=== PATIENT | female | born 1955 | race Hispanic/Latino ===

== ENCOUNTER 2020-08-07 00:50 | Emergency (ER) | payer SELFPAY ==
[~2020-08-07] VITALS: Ht 157.5 cm; Wt 131.5 kg
[2020-08-07] MEDS ORDERED: CLONIDINE HCL 0.1 MG TAB PO ONE (01:30)
--- NOTE | 2020-08-07 01:36 | Emergency Department Note ---
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 Historian: Patient Arrival Mode: Car [employer] B[employer] As[employer]er Required: No Onset (how long ago): month(s) (4) Location: HEAD Quality: HEADACHES AND WEAKNESS Radiation: Reports non-radiation Severity: moderate Onset quality: gradual Duration (how long): month(s) (4) Timing of current episode: intermittent Progression: waxing and waning Chronicity: recurrent Context: Denies recent illness, Denies recent surgery Relieving factors: none Exacerbating factors: none Associated symptoms: Reports denies other symptoms Treatments prior to arrival: none Past Medical/Family History Physician Review I have reviewed the patient's past medical and family history. Any updates have been documented here. Past Medical History Recent Fever: No Clinical Suspicion of Infectio: No New/Unexplained Change in Ment: No Past Medical History: Hypertension Social History Smoking Cessation: Never Smoker Alcohol Use: None Any Illegal Drug Use: No Family History Family history of heart diseas: No Review of Systems Review of Systems Constitutional: Reports no symptoms EENTM: Reports no symptoms Cardiovascular: Reports no symptoms Respiratory: Reports no symptoms Gastrointestinal: Reports no symptoms Genitourinary: Reports no symptoms Musculoskeletal: Reports no symptoms Integumentary: Reports no symptoms Neurological: Reports as per HPI Psychological: Reports no symptoms Endocrine: Reports no symptoms Hematological/Lymphatic: Reports no symptoms Physical Exam Related Data Allergies: Coded Allergies: Penicillins (Verified Allergy, Mild, RED RASH/ITCHING, 03/21/10) Iodine (Verified Allergy, Unknown, UNSURE, 03/21/10) Triage Vital Signs Vital Signs Date Time Temp Pulse Resp B/P (MAP) Pulse Ox O2 Delivery O2 Flow Rate FiO2 08/07/20 01:10 98.7 96 20 224/112 99 Room Air Vital signs reviewed: Yes Physical Exam CONSTITUTIONAL Constitutional: Present well-developed, Present well-nourished; Absent distressed HENT HENT: Present normocephalic, Present atraumatic, Present oropharynx c lear/moist, Present nose normal HENT L/R: Present left ext ear normal, Present right ext ear normal EYES Eyes: Reports PERRL, Reports conjunctivae normal NECK Neck: Present ROM normal PULMONARY Pulmonary: Present effort normal, Present breath sounds normal CARDIOVASCULAR Cardiovascular: Present regular rhythm, Present heart sounds normal, Present capillary refill normal, Present normal rate GASTROINTESTINAL Abdominal: Present soft, Present nontender, Present bowel sounds normal GENITOURINARY Genitourinary: Present exam deferred SKIN Skin: Present warm, Present dry MUSCULOSKELETAL Musculoskeletal: Present ROM normal NEUROLOGICAL Neurological: Present alert, Present oriented x 3, Present no gross motor or sensory deficits PSYCHOLOGICAL Psychological: Present mood/affect normal, Present judgement normal Results Laboratory Laboratory Laboratory Tests Test 08/07/20 02:08 08/07/20 01:25 Urine Color Yellow (YELLOW) Urine Clarity Clear (CLEAR) Urine pH 5.5 (5 - 7) Urine Specific [place] 1.025 (1.010-1.025) Urine Protein Negative (NEGATIVE) Urine Glucose (UA) 2+ (NEGATIVE) Urine Ketones 2+ (NEGATIVE) Urine Blood 2+ (NEGATIVE) Urine Nitrite Negative (NEGATIVE) Urine Bilirubin 1+ (NEGATIVE) Urine Urobilinogen 0.2 mg/dL (0.2 - 1) Urine Leukocyte Esterase Negative (NEGATIVE) Urine RBC 11-20 /HPF (0-5) Urine WBC 6-10 /HPF (0-5) Urine Epithelial Cells Moderate /LPF (NONE) Urine Bacteria Few /HPF (NONE) Urine Mucus Few (RARE) Urine Yeast Many (NONE) White Blood Count 7.86 x10e3/uL (4.8-10.8) Red Blood Count 5.38 x10e6/uL (3.6-5.1) Hemoglobin 15.6 g/dL (12.0-16.0) Hematocrit 47.1 % (34.2-44.1) Mean Corpuscular Volume 87.5 fL (81-99) Mean Corpuscular Hemoglobin 29.0 pg (28-32) Mean Corpuscular Hemoglobin Concent 33.1 g/dL (31-35) Red Cell Distribution Width 13.9 % (11.7-14.4) Platelet Count 158 x10e3/uL (140-360) Neutrophils (%) (Auto) 77.9 % (38.7-80.0) Lymphocytes (%) (Auto) 16.2 % (18.0-39.1) Monocytes (%) (Auto) 3.7 % (4.4-11.3) Eosinophils (%) (Auto) 1.3 % (0.0-6.0) Basophils (%) (Auto) 0.5 % (0.0-1.0) Neutrophils # (Auto) 6.1 (2.1-6.9) Lymphocytes # (Auto) 1.3 (1.0-3.2) Monocytes # (Auto) 0.3 (0.2-0.8) Eosinophils # (Auto) 0.1 (0.0-0.4) Basophils # (Auto) 0.0 (0.0-0.1) Absolute Immature Granulocyte (auto 0.03 x10e3/uL (0-0.1) Sodium Level 141 mmol/L (136-145) Potassium Level 3.6 mmol/L (3.5-5.1) Chloride Level 100 mmol/L (98-107) Carbon Dioxide Level 24 mmol/L (22-29) Anion Gap 20.6 mmol/L (8-16) Blood Urea Nitrogen 14 mg/dL (7-26) Creatinine 0.98 mg/dL (0.57-1.11) Estimat Glomerular Filtration Rate 58 ML/MIN (60-) BUN/Creatinine Ratio 14 (6-25) Glucose Level 280 mg/dL (74-118) Calcium Level 9.6 mg/dL (8.4-10.2) Total Bilirubin 0.7 mg/dL (0.2-1.2) Aspartate Amino Transf (AST/SGOT) 18 IU/L (5-34) Alanine Aminotransferase (ALT/SGPT) 14 IU/L (0-55) Alkaline Phosphatase 104 IU/L (40-150) Creatine Kinase 51 IU/L (29-168) Creatine Kinase MB 0.90 ng/mL (0-5.0) Troponin I 0.029 ng/mL (0-0.300) Total Protein 7.2 g/dL (6.5-8.1) Albumin 2.8 g/dL (3.5-5.0) Globulin 4.4 g/dL (2.3-3.5) Albumin/Globulin Ratio 0.6 (0.8-2.0) Lab results reviewed: Yes Imaging Imaging results reviewed: Yes Impressions Procedure: [id number] CT/CT BRAIN WO Exam Date: 08/07/20 Exam Time: 144 REPORT STATUS: Signed EXAMINATION: Head CT without contrast. HISTORY:Headache, elevated blood pressure. COMPARISON:None. TECHNIQUE: Multidetector axial images were obtained from the foramen magnum to the vertex without contrast. The images were reconstructed using brain and bone algorithms. Thin section brain images were reformatted into coronal and sagittal planes. Dose modulation, iterative reconstruction, and/or weight based adjustment of the mA/kV was utilized to reduce the radiation dose to as low as reasonably achievable. Intravenous contrast: None IMAGE QUALITY: Acceptable. FINDINGS: Skull/scalp: No lytic or blastic. lesions. No surgical changes. Parenchyma: Nonspecific bilateral frontoparietal patchy white matter hypodensity are likely related to small vessel ischemic changes. No acute hemorrhage, mass or acute major vascular territorial infarct. Arteries: No density suggestive of thrombosis. Dural sinuses: No abnormal density suggestive of thrombosis. Ventricles: No hydrocephalus or displacement. Extra-axial spaces: No abnormal density. Brain volume: Mild generalized cerebral volume loss. Craniocervical junction: No mass, Chiari malformation, or basilar invagination. Sella: No mass. Paranasal/mastoid sinuses: Opacification of the visualized portion of left maxillary sinus. IMPRESSION: No acute intracranial abnormality. Mild supratentorial white matter microvascular ischemic changes. Mild generalized cerebral volume loss. Signed by: Dr. Niurka Cutler M.D. on 08/07/2020 2:12 AM Dictated By: NIURKA CUTLER MD 1 Transcribed By: TWIN on 08/07/20211 COPY TO: DENISE JACOB MD~ Procedure: [id number] DX/CHEST SINGLE (PORTABLE) Exam Date: 08/07/20 Exam Time: 144 REPORT STATUS: Signed EXAMINATION: CHEST SINGLE (PORTABLE) INDICATION: ^HEADACHE, WEAKNESS ^[id number] ^[id number] ^Y COMPARISON: 03/20/2010 FINDINGS: AP view TUBES and LINES: None. LUNGS: Limited by body habitus. Lungs are well inflated. There is no evidence of pneumonia or pulmonary edema. PLEURA: No pleural effusion or pneumothorax. HEART AND MEDIASTINUM: The cardiomediastinal silhouette is unremarkable. BONES AND SOFT TISSUES: No acute osseous lesion. Partially visualized cervical spine fusion hardware. Soft tissues are unremarkable. UPPER ABDOMEN: No free air under the diaphragm. IMPRESSION: No acute thoracic abnormality. Signed by: Dr. 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 Date: Aug 07, 2020 Time: 01:18 Rhythm: sinus rhythm Rate: normal BPM: 89 QRS axis: normal ST segments normal: Yes T waves normal: Yes Other findings: no other findings Clinical Impression: normal ECG Assessment & Plan Medical Decision Making MDM PT WITH INTERMITTENT HEADACHE AND WEAKNESS SINCE MARCH, CURRENT EPISODE FOR PAST 1 WEEK, PT NOTED TO BE HYPERTENSIVE ON ARRIVAL,STATES HAS NOT CHECKED HER BLOOD PRESSURE SINCE LAST VISIT WITH PCP IN OCTOBER CBC, CMP, EKG, CARDIAC ENZYMES, CXR, CT BRAIN ORDERED TO EVAL FOR INTRACRANIAL MASS, CVA, SUBDURAL BLEED, MYOCARDIAL INFARCTION, PULMONARY EDEMA, RENAL INSUFFICIENCY, ELECTROLYTE ABNORMALITY CLONIDINE 0.1 MG PO ORDERED Assessment & Plan Final Impression: (1) Headache (2) HTN (hypertension) (3) UTI (urinary tract infection) Depart Disposition: HOME, SELF-CARE Last Vital Signs Date Time Temp Pulse Resp B/P (MAP) Pulse Ox O2 Delivery O2 Flow Rate FiO2 08/07/20 01:10 98.7 96 20 224/112 99 Room Air Medications in the ED Clonidine HCl 0.1 mg ONCE ONCE PO ; Start 08/07/20 at 01:30; Stop 08/07/20 at 01:31; Status UNV DENISE JACOB MD Aug 07, 2020 01:36
[2020-08-07 01:47] LABS: BASOPHILS % 0.5 % (0.0-1.0); EOSINOPHILS # (AUTO) 0.1 (0.0-0.4); EOSINOPHILS % 1.3 % (0.0-6.0); HEMATOCRIT 47.1 % (34.2-44.1); HEMOGLOBIN 15.6 g/dL (12.0-16.0); LYMPHOCYTES # (AUTO) 1.3 (1.0-3.2); LYMPHOCYTES % 16.2 % (18.0-39.1); MEAN CORPUSCULAR HGB CONC 33.1 g/dL (31-35); MEAN CORPUSCULAR VOLUME 87.5 fL (81-99); MONOCYTES # (AUTO) 0.3 (0.2-0.8); MONOCYTES % 3.7 % (4.4-11.3); NEUTROPHILS # (AUTO) 6.1 (2.1-6.9); NEUTROPHILS % 77.9 % (38.7-80.0); PLATELET COUNT 158 x10e3/uL (140-360); RED BLOOD COUNT 5.38 x10e6/uL (3.6-5.1); RED CELL DISTRIBUTION WIDTH 13.9 % (11.7-14.4)
[2020-08-07 01:51] LABS: ALBUMIN 2.8 g/dL (3.5-5.0); ALBUMIN/GLOBULIN RATIO 0.6 (0.8-2.0); ANION GAP 20.6 mmol/L (8-16); CALCIUM 9.6 mg/dL (8.4-10.2); CREATININE, SERUM 0.98 mg/dL (0.57-1.11); POTASSIUM 3.6 mmol/L (3.5-5.1)
[2020-08-07 02:12] LABS: CREATINE KINASE MB 0.9 ng/mL (0-5.0)
--- NOTE | 2020-08-07 02:16 | Diagnostic Imaging Report ---
EXAMINATION: Head CT without contrast. HISTORY:Headache, elevated blood pressure. COMPARISON:None. TECHNIQUE: Multidetector axial images were obtained from the foramen magnum to the vertex without contrast. The images were reconstructed using brain and bone algorithms. Thin section brain images were reformatted into coronal and sagittal planes. Dose modulation, iterative reconstruction, and/or weight based adjustment of the mA/kV was utilized to reduce the radiation dose to as low as reasonably achievable. Intravenous contrast: None IMAGE QUALITY: Acceptable. FINDINGS: Skull/scalp: No lytic or blastic. lesions. No surgical changes. Parenchyma: Nonspecific bilateral frontoparietal patchy white matter hypodensity are likely related to small vessel ischemic changes. No acute hemorrhage, mass or acute major vascular territorial infarct. Arteries: No density suggestive of thrombosis. Dural sinuses: No abnormal density suggestive of thrombosis. Ventricles: No hydrocephalus or displacement. Extra-axial spaces: No abnormal density. Brain volume: Mild generalized cerebral volume loss. Craniocervical junction: No mass, Chiari malformation, or basilar invagination. Sella: No mass. Paranasal/mastoid sinuses: Opacification of the visualized portion of left maxillary sinus. IMPRESSION: No acute intracranial abnormality. Mild supratentorial white matter microvascular ischemic changes. Mild generalized cerebral volume loss. Signed by: Dr. Niurka Cutler M.D. on 08/07/2020 2:12 AM
[2020-08-07 02:23] LABS: CLARITY,URINE CLEAR (CLEAR); COLOR,URINE YELLOW (YELLOW); LEUKOCYTE ESTERASE ,URINE NEGATIVE (NEGATIVE); NITRITE,URINE NEGATIVE (NEGATIVE); PROTEIN,URINE DIPSTICK NEGATIVE (NEGATIVE)
[2020-08-07 02:24] LABS: BILIRUBIN,URINE 1+ (NEGATIVE); KETONES,URINE 2+ (NEGATIVE); URINE UROBILINOGEN 0.2 mg/dL (0.2 - 1)
--- NOTE | 2020-08-07 02:39 | Diagnostic Imaging Report ---
EXAMINATION: CHEST SINGLE (PORTABLE) INDICATION: ^HEADACHE, WEAKNESS ^[id number] ^0145 ^Y COMPARISON: 03/20/2010 FINDINGS: AP view TUBES and LINES: None. LUNGS: Limited by body habitus. Lungs are well inflated. There is no evidence of pneumonia or pulmonary edema. PLEURA: No pleural effusion or pneumothorax. HEART AND MEDIASTINUM: The cardiomediastinal silhouette is unremarkable. BONES AND SOFT TISSUES: No acute osseous lesion. Partially visualized cervical spine fusion hardware. Soft tissues are unremarkable. UPPER ABDOMEN: No free air under the diaphragm. IMPRESSION: No acute thoracic abnormality. Signed by: Dr. Mika Calvo MD on 08/07/2020 2:35 AM
[2020-08-07 02:42] LABS: BACTERIA,URINE FEW /HPF; EPITHELIAL CELLS,URINE MODERATE /LPF; MUCUS,URINE FEW (RARE); YEAST,URINE MANY
--- OUTSIDE RECORDS SUMMARY | 2020-08-07 03:47 | XMS REPORT | Continuity of Care Document ---
Author Author [facility] t Organization [facility] Address [address] [place] [address] Phone Unavailable Care Team Providers Care Provider Scribe Name Role Phone Pratibha Mckeon MD PCP [place] JACOB Attphys Unavailable Roc Mckeon Attphys Juan Mcpherson II Attphys Vic Sawyer Attphys Bryan Smith Attphys Keisha South Attphys Problems Condition Name Condition Details Condition Category Status Onset Date Resolution Date Last Treatment Date Treating Clinician Comments Source E78.5 E11.65 E03.9 K74.60 V E78.5 E11.65 E03.9 K74.60 V Active 03/19/2018 [facility] Diagnosis Active 2018-03-19 00:00:00 2018-04-20 15:13:00 Bianka Mccallum E78.5 E11.65 E03.9 K74.60 E78. 5 E11.65 E03.9 K74.60 Active 01/26/2018 [facility] Diagnosis Active 2018-01-26 00:00:00 2018-02-13 08:39:00 Bianka Mccallum LIVER CIRRHOSIS LIVE R CIRRHOSIS Active 10/13/2017 [facility] Diagnosis Active 2017-10-13 00:00:00 2017-10-16 07:17:00 Bianka Mccallum M25.562 - PAIN IN LEFT KNEE M2 5.562 - PAIN IN LEFT KNEE Active 05/29/2017 OPID [facility] Diagnosis Active 2017-05-29 00:0 1:00 2017-07-01 15:57:00 [facility] Screening mammography (procedure) Screening mammography (procedure) Active 04/24/2015 Problem 08/13/2019 Data migrated from [employer] on 05/20/15. [facility] [place] [place] Problem Active 2015-04-24 00:00:00 2019-08-13 01:44:36 [facility] Candidiasis of mouth (disorder) Candidiasis of mouth (disorder) Active 03/22/2015 Problem 08/13/2019 Data migrated from [employer] on 04/05/15. [facility] [place] [place],[facility] Problem Active 2015-03-22 00:00:00 2019-08-13 01:44:36 [facility] HYPERTRIGLYCERIDEMIA HYPE RTRIGLYCERIDEMIA Active 02/06/2015 Condition 02/06/2015 Medical Group Condition Active 2015-02-06 00:00:00 2015-02-06 15:45:00 [facility] HELICOBACTER PYLORI GASTRITIS HELICOBACTER PYLORI GASTRITIS Active 02/06/2015 Condition 02/06/2015 Medical Group Condition Active 2015-02-06 00:00:00 2015-02-06 15:45:00 [facility] Helicobacter-associated gastritis (disorder) Helicobacter-associated gastritis (disorder) Active 02/06/2015 Problem 08/13/2019 Data migrated from [employer] on 04/05/15.Data migrated from [employer] on 04/05/15. [facility] [place] [place],[facility] Problem Active 2015-02-06 00:00:00 2019-08-13 01:44:36 [facility] Hypertriglyceridemia (disorder) Hypertriglyceridemia (disorder) Active 02/06/2015 Problem 08/13/2019 Data migrated from [employer] on 04/05/15.Data migrated from [employer] on 04/05/15. [facility] [place] [place],[facility] Problem Active 2015-02-06 00:00:00 2019-08-13 01:44:36 [facility] ABDOMINAL PAIN, EPIGASTRIC ABD OMINAL PAIN, EPIGASTRIC Active 11/28/2014 Condition 02/06/2015 Medical Group Condition Active 2014-11-28 00:00:00 2015-02-06 15:45:00 [facility] Epigastric pain (finding) Epig astric pain (finding) Active 11/28/2014 Problem 08/13/2019 Data migrated from [employer] on 04/05/15.Data migrated from [employer] on 04/05/15. [facility] [place] [place] Problem Active 2014-11-28 00:00:00 2019-08-13 01:44:36 [facility] DYSLIPIDEMIA DYSL IPIDEMIA Active 08/17/2014 Condition 02/06/2015 Medical Group Condition Active 2014-08-17 00:00:00 2015-02-06 15:45:00 [facility] Dyslipidemia (disorder) Dysl ipidemia (disorder) Active 08/17/2014 Problem 03/23/2018 Data migrated from [employer] on 02/28/15. [facility] [place] [place] Problem Active 2014-08-17 00:00:00 2018-03-23 02:54:45 [facility] DIABETES MELLITUS, TYPE II, UNCONTROLLED DIABETES MELLITUS, TYPE II, UNCONTROLLED Active 08/15/2014 Condition 02/06/2015 Medical Group Condition Active 2014-08-15 00:00:00 2015-02-06 15:45:00 [facility] Type II diabetes mellitus uncontrolled (finding) Type II diabetes mellitus uncontrolled (finding) Active 08/15/2014 Problem 03/23/2018 Data migrated from [employer] on 02/28/15. [facility] [place] [place] Problem Active 2014-08-15 00:00:00 2018-03-23 02:54:45 [facility] OBESITY NOS OBES ITY NOS Active 05/26/2014 Condition 02/06/2015 Medical Group Condition Active 2014-05-26 00:00:00 2015-01 15:45:00 [facility] Obesity (disorder) Obes ity (disorder) Active 05/26/2014 Problem 08/13/2019 Data migrated from [employer] on 02/28/15. [facility], [facility] [place] [place],[facility] Problem Active 2014-05-26 00:00:00 2019-08-13 01:44:36 [facility] DIABETES MELLITUS, TYPE II LUH BETES MELLITUS, TYPE II Active 05/04/2014 Condition 02/06/2015 Medical Group Condition Active 2014-05-04 00:00:00 2015-02-06 15:45:00 [facility] HYPERTENSION, BENIGN ESSENTIAL HYPERTENSION, BENIGN ESSENTIAL Active 05/04/2014 Condition 02/06/2015 Medical Group Condition Active 2014-05-04 00:00:00 2015-02-06 15:45:00 [facility] FIBROMYALGIA FIBR OMYALGIA Active 05/04/2014 Condition 02/06/2015 [facility] Group Condition Active 2014-05-04 00:00:00 2015-02-06 15:45:00 [facility] DERMATOPHYTOSIS, BODY DERM ATOPHYTOSIS, BODY Active 05/04/2014 Condition 02/06/2015 [facility] Group Condition Active 2014-05-04 00:00:00 2015-02-06 15:45:00 [facility] SEBORRHEIC DERMATITIS SEBO RRHEIC DERMATITIS Active 05/04/2014 Condition 02/06/2015 Medical Group Condition Active 2014-05-04 00:00:00 2015-02-06 15:45:00 [facility] ALLERGIC RHINITIS KAYLEEN RGIC RHINITIS Active 05/04/2014 Condition 02/06/2015 Medical Group Condition Active 2014-05-04 00:00:00 2015-02-06 15:45:00 [facility] ASTHMA ASTH MA Active 05/04/2014 Condition 02/06/2015 Medical Group Condition Active 2014-05-04 00:00:00 2015-02-06 15:45:00 [facility] Allergic rhinitis (disorder) A llergic rhinitis (disorder) Active 05/04/2014 Problem 08/13/2019 Data migrated from [employer] on 02/28/15. [facility] [place] [place],[facility] Problem Active 2014-05-04 00:00:00 2019-08-13 01:44:36 [facility] Asthma (disorder) Asth ma (disorder) Active 05/04/2014 Problem 08/13/2019 Data migrated from [employer] on 02/28/15. [facility], [facility] [place], [place], [facility] Problem Active 2014-05-04 00:00:00 2019-08-13 01:44:36 [facility] Benign essential hypertension (disorder) Benign essential hypertension (disorder) Active 05/04/2014 Problem 08/13/2019 Data migrated from [employer] on 02/28/15. [facility], [facility] [place], [place], [facility] Problem Active 2014-05-04 00:00:00 2019-08-13 01:44:36 [facility] Dermatophytosis of the body (disorder) Dermatophytosis of the body (disorder) Active 05/04/2014 Problem 08/13/2019 Data migrated from [employer] on 02/28/15. [facility], [facility] [place], [place], M[facility] Problem Active 2014-05-04 00:00:00 2019-08-13 01:44:36 [facility] Fibromyositis (disorder) Fibr omyositis (disorder) Active 05/04/2014 Problem 08/13/2019 Data migrated from [employer] on 02/28/15. [facility], [facility] [place], [place], [facility] Problem Active 2014-05-04 00:00:00 2019-08-13 01:44:36 [facility] Seborrheic dermatitis (disorder) Seborrheic dermatitis (disorder) Active 05/04/2014 Problem 08/13/2019 Data migrated from [employer] on 02/28/15. [facility], [facility] [place], [place], OPID [facility] Problem Active 2014-05-04 00:00:00 2019-08-13 01:44:36 [facility] Diabetes mellitus type 2 (disorder) Diabetes mellitus type 2 (disorder) Active 05/04/2014 Problem 03/23/2018 Data migrated from [employer] on 02/28/15. [facility] [place] [place] Problem Active 2014-05-04 00:00:00 2018-03-23 02:54:45 [facility] NECKA PAIN AND LEFT KNEE PAIN NECKA PAIN AND LEFT KNEE PAIN Active 04/29/2008 [facility] Diagnosis Active 2008-04-29 08:0 0:00 2017-05-23 18:23:00 [facility] Morbid (severe) obesity due to excess calories Morbid (severe) obesity due to excess calories 01/22/2018 [facility] Problem 2018-01-22 17:20:17 [facility] Essential (primary) hypertension Essential (primary) hypertension 01/22/2018 [facility] Problem 2018-01-22 17:20:17 [facility] Type 2 diabetes mellitus without complications Type 2 diabetes mellitus without complications 01/22/2018 [facility] Problem 2018-01-22 17:20:17 [facility] Pure hypercholesterolemia, unspecified Pure hypercholesterolemia, unspecified 01/22/2018 [facility] Problem 2018-01-22 17:20:17 [facility] Hypothyroidism, unspecified Hy pothyroidism, unspecified 01/22/2018 [facility] Problem 2018-01-22 17:20:1 7 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 Hyperglycemia due to type 2 diabetes mellitus (disorde r) Hyperglycemia due to type 2 diabetes mellitus (disorder) Active Problem 08/13/2019 [facility] Problem Active 2019-08-13 01:44:36 [facility] Hyperlipidemia (disorder) Hype rlipidemia (disorder) Active Problem 08/13/2019 [facility], [facility] Problem Active 2019-08-13 01:44:36 Memmickey Mccallum Morbid obesity (disorder) Morb id obesity (disorder) Active Problem 08/13/2019 [facility], [facility] Problem Active 2019-08-13 01: 44:36 [facility] Diabetes mellitus (disorder) D iabetes mellitus (disorder) Active Problem 03/23/2018 [facility], [facility] Problem Active 2018-03-23 02:54:45 Bhaskar khalil Alessio Unspecified cirrhosis of liver Unspecified cirrhosis of liver 10/18/2017 01/22/2018 [facility] Problem 04:33:45 2018-01-22 17:20:17 2018-01-22 17:20:17 Bianka mckeon Allergies, Adverse Reactions, Alerts Allergy Name Allergy Type Status Severity Reaction(s) Onset Date Inacti ve Date Treating Clinician Comments Source Adhesive Tape-Silicones Propensity to adverse reactions to drug Activ e 2017-07-25 00:00:00 ADHESIVES Reyes Meth odist Iodine Propensity to adverse reactions to drug Active 2017-07-08 00:00:00 Eric Uatsdin Penicillins Propensity to adverse reactions to drug Active Rash 2017-05-16 00:00:00 Itching [facility] penicillins<sup>1</sup> penicillins<sup>1</sup> Active 2014-05-04 05:00:00 Bianka Mccallum PENICILLIN PENICILLIN Active 2014-05-04 00:00:00 Bianka Mcclalum ADHESIVE Allergy to substance Active Mild to moderate Rash [facility] PENICILLINS Allergy to substance Active Moderate to severe Itching [facility] Iodine Mild<sup>2</sup> Iodine Mild<sup>2</sup> Active Bianka Mccallum Social [facility] Start Date Stop Date Quantity Comments Source Sex Assigned At Sanket sullivan Uatsdin Social History 2018-01-12 21:10:27 2018-01-12 21:10:27 Bianka Mccallum Smoking Status Start Date Stop Date Source Former Smoker [facility] Bianka Mccallum Medications Ordered Medication Name Filled Medication Name Start Date Stop Da te Current Medication? Ordering Clinician Indication Dosage Frequency Signature (SIG) Comments Components Source gabapentin 300 MG Oral Capsule 2019-08-10 22:40:00 Yes 300 mg = 1 cap, PO, BID, # 180 cap, 1 Refill(s), Pharmacy: [id number] Bianka Mccallum Triamcinolone Acetonide 1 MG/ML Topical Cream 2019-08-10 22:40:0 0 Yes 1 appl, TOP, BID, Apply to affected area (s), X 14 day, # 60 gm, 0 Refill(s), Pharmacy: [id number] Bianka Mccallum gabapentin 300 MG Oral Capsule 2019-08-10 22:39:00 No 300 mg = 1 cap, PO, TID, # 90 cap, 0 Refill(s) Bhaskar khalil [place] valsartan 320 mg oral tablet 2019-08-10 22:36:57 Yes 320 mg = 1 tab, PO, Daily, # 90 tab, 1 Refill(s), Pharmacy: [address] simvastatin 10 mg oral tablet 2019-08-10 22:36:54 Yes = 1 tab, PO, Bedtime, # 90 tab, 1 Refill(s), Pharmacy: [facility] [address] [place] [address] pantoprazole 40 MG Enteric Coated Tablet [Protonix] 2018-09 22:36:47 Yes 40 mg = 1 tab, P O, Daily, # 90 tab, 1 Refill(s), Pharmacy: [address] levothyroxine 25 mcg (0.025 mg) oral tablet 2019-08-10 22:36:11 Yes = 1 tab, PO, Daily, # 90 tab, 1 Refill(s), Pharmacy: [address] 3 ML insulin degludec 200 UNT/ML Pen Injector [Tresiba] 2019-08-10 22:31:47 Yes 54 unit, SUB-Q, Daily, # 12 pen(s), 1 Refill(s), Pharmacy: [address] 3 ML Insulin, Aspart, Human 100 UNT/ML Pen Injector [NovoLog ] 2019-08-10 22:31:24 Yes See Instru ctions, SUB-Q TID-Before Meals following sliding scale BS 150-199 3 units BS 200-249 6 units BS 250-299 9 units BS 300- 349 12 units BS more than 350 15 units, # 15 mL, 1 Refill(s) [facility] Hydrochlorothiazide 25 MG Oral Tablet 2019-08-10 22:30:22 Y es 25 mg = 1 tab, PO, Daily, # 90 tab, 0 Refill(s), Pharmacy: [address] duloxetine 30 MG Enteric Coated Capsule [Cymbalta] 2019-07 22:29:20 Yes 30 mg = 1 cap, P O, Daily, # 90 cap, 1 Refill(s), Pharmacy: [address] 0.5 ML dulaglutide 1.5 MG/ML Prefilled Syringe [Trulicity] 2019-08-10 22:29:12 Yes 0.75 mg, S UB-Q, qWeek, # 4 ea, 5 Refill(s), Pharmacy: [address] 24 HR dapagliflozin 5 MG / Metformin hyd rochloride 1000 MG Extended Release Oral Tablet [Xigduo] 2019-08-10 22:28:52 Yes 2 tab, PO, QAM, # 180 tab, 1 Refill(s), Pharmacy: [facility] [address] [place] [address] amLODIPine 10 mg oral tablet 2019-08-10 22:28:28 Yes 10 mg = 1 tab, PO, Daily, # 90 tab, 1 Refill(s), Pharmacy: [facility] [address] [place] [address] Ventolin HFA 90 mcg/inh inhalation aerosol with adapter 2019-08-10 22:28:10 Yes 2 puff, INHALAT ION, QID, # 1 ea, 2 Refill(s), Pharmacy: [address] duloxetine 30 MG Enteric Coated Capsule [Cymbalta] 2019-05 21:42:45 Yes 30 mg = 1 cap, P O, Daily, # 90 cap, 0 Refill(s), Pharmacy: [address] Ergocalciferol [id number] UNT Oral Capsule 2019-05-14 17:28:00 Y es 50,000 IntlUnit = 1 cap, PO, qWeek, # 12 cap, 0 Refill(s), Pharmacy: [address] 3 ML insulin degludec 200 UNT/ML Pen Injector [Tresiba] 2019-05-14 17:13:42 Yes 50 unit, SUB-Q, Daily, # 12 pen(s), 1 Re fill(s), other [facility] 3 ML Insulin, Aspart, Human 100 UNT/ML Pen Injector [NovoLog ] 2019-05-14 17:13:00 Yes See Instru ctions, SUB-Q TID-Before Meals following sliding scale BS 150-199 3 units BS 200-249 6 units BS 250-299 9 units BS 300- 349 12 units BS more than 350 15 units, # 15 mL, 0 Refill(s) [facility] 0.5 ML dulaglutide 1.5 MG/ML Prefilled Syringe [Trulicity] 2019-05-14 17:13:00 Yes 0.75 mg, S UB-Q, qWeek, # 4 ea, 2 Refill(s), Pharmacy: [address] amLODIPine 10 mg oral tablet 2019-05-11 20:33:00 Yes 10 mg = 1 tab, PO, Daily, # 90 tab, 0 Refill(s), Pharmacy: [address] Hydrochlorothiazide 25 MG Oral Tablet 2019-05-11 20:33:00 Y es 25 mg = 1 tab, PO, Daily, # 90 tab, 0 Refill(s), Pharmacy: [address] valsartan 320 mg oral tablet 2019-05-11 20:33:00 Yes 320 mg = 1 tab, PO, Daily, # 90 tab, 0 Refill(s), Pharmacy: [address] Nystatin [id number] UNT/ML Oral Suspension 2019-04-29 13:44:04 Yes 400,000 unit = 4 mL, S&SPIT, QID, place 2 mL in each cheek pouch, # 120 mL, 1 Refill(s), Pharmacy: [address] Fluconazole 150 MG Oral Tablet [Diflucan] 2019-04-29 13:44:00 Yes 150 mg = 1 tab, PO, ONCE, # 1 tab, 1 Refill(s), Pharmacy: [address] simvastatin 10 mg oral tablet 2019-04-29 13:33:02 Yes = 1 tab, PO, Bedtime, # 90 tab, 0 Refill(s), Pharmacy: [address] pantoprazole 40 MG Enteric Coated Tablet [Protonix] 04-29 13:32:56 Yes 40 mg = 1 tab, P O, Daily, # 90 tab, 1 Refill(s), Pharmacy: [address] meloxicam 15 mg oral tablet 2019-04-29 13:32:25 Yes 15 mg = 1 tab, PO, Daily, # 90 tab, 1 Refill(s), Pharmacy: [address] levothyroxine 25 mcg (0.025 mg) oral tablet 2019-04-29 13:32:23 Yes = 1 tab, PO, Daily, # 90 tab, 0 Refill(s), Pharmacy: [address] 3 ML Insulin Lispro 200 UNT/ML Pen Injector [Humalog] 2019-04-29 13:32:19 Yes 400, # 3 mL, 2 Refill(s), Pharmacy: [address] 3 ML insulin degludec 200 UNT/ML Pen Injector [Tresiba] 2019-04-29 13:32:13 Yes 62 unit, SUB-Q, Daily, # 12 pen(s), 1 Refill(s), Pharmacy: [address] 0.65 ML exenatide 3.08 MG/ML Prefilled Syringe [Bydureon] 2019-04-29 13:31:16 Yes 2 mg, SUB-Q, q Week, # 12 ea, 3 Refill(s), Pharmacy: [place] [id number], give bydureon bcise [facility] Mccallum 24 HR dapagliflozin 5 MG / Metformin hyd rochloride 1000 MG Extended Release Oral Tablet [Xigduo] 2019-04-29 13:30:59 Yes 2 tab, PO, QAM, # 180 tab, 0 Refill(s), Pharmacy: [address] Symbicort 160/4.5 inhalation aerosol with adapter 2019-04-29 13:30:50 Yes See Instructions, IN VALERIO TWO PUFFS BY MOUTH TWICE DAILY, # 3 ea, 3 Refill(s), Pharmacy: [address] Amlodipine 10 MG / Hydrochlorothiazide 25 MG / valsartan 320 MG Oral Tablet 2019-04-29 13:30:42 Yes 1 tab, PO, Daily, # 90 tab, 0 Refill(s), Pharmacy: [address] duloxetine 30 MG Enteric Coated Capsule [Cymbalta] 2019-04 13:30:00 Yes 30 mg = 1 cap, P O, Daily, # 30 cap, 0 Refill(s), Pharmacy: [address] FreeStyle shawn sensors 2018-08-25 16:07:00 Yes FreeStyle shawn sensors, See Instructions, Use as diected for glucose monitoring, # 3 ea, Refill(s) 11, Pharmacy: [address] FreeStyle shawn reader 2018-08-25 16:07:00 Yes FreeStyle shawn reader, See Instructions, Use as directed for glucose monitoring, # 1 ea, Refill(s) 11, Pharmacy: [address] Albuterol 0.83 MG/ML Inhalant Solution 2018-07-13 21:39:00 Yes 2.49 mg = 3 mL, INHALATION, Q4H, PRN wheezing, coughing, or shortness of breath, # 120 ea, 1 Refill(s), Pharmacy: [address] Azithromycin 5 Day Dose Pack 250 mg oral tablet 2018-07-13 21:39 :00 No See Instructions, Take 2 tab lets by mouth the first day then 1 tablet by mouth days 2-5., X 5 day, # 6 tab, 0 Refill(s), Pharmacy: [address] 3 ML insulin degludec 200 UNT/ML Pen Injector [Tresiba] 2018-07-13 21:18:23 Yes 62 unit, SUB-Q, Daily, # 12 pen(s), 1 Refill(s), Pharmacy: [address] Nystatin [id number] UNT/ML Oral Suspension 2018-07-13 21:18:00 Yes 400,000 unit = 4 mL, S&SPIT, QID, place 2 mL in each cheek pouch, # 120 mL, 1 Refill(s), Pharmacy: [address] pregabalin 50 MG Oral Capsule [Lyrica] 2018-07-13 21:18:00 Yes 50 mg = 1 cap, PO, BID, # 60 cap, 2 Refill(s) [facility] 3 ML Insulin Lispro 200 UNT/ML Pen Injector [Humalog] 2018-07-13 21:18:00 Yes 400, # 3 mL, 2 Refill(s), Pharmacy: [address] simvastatin 10 mg oral tablet 2018-04-13 21:56:16 Yes See Instructions, TAKE ONE TABLET BY MOUTH AT BEDTIME, # 90 tab, 1 Refill(s), Pharmacy: [address] pantoprazole 40 MG Enteric Coated Tablet [Protonix] 04-13 21:56:10 Yes 40 mg = 1 tab, P O, Daily, # 90 tab, 1 Refill(s), Pharmacy: [address] meloxicam 15 mg oral tablet 2018-04-13 21:55:24 Yes 15 mg = 1 tab, PO, Daily, # 90 tab, 1 Refill(s), Pharmacy: [address] levothyroxine 25 mcg (0.025 mg) oral tablet 2018-04-13 21:55:18 Yes 25 microgram = 1 tab, PO, Daily, # 90 tab, 1 Refill(s), Pharmacy: [address] 3 ML insulin degludec 200 UNT/ML Pen Injector [Tresiba] 2018-04-13 21:55:04 No 56 unit, SUB-Q, Daily, # 12 pen(s), 1 Refill(s), Pharmacy: [address] 0.65 ML exenatide 3.08 MG/ML Prefilled Syringe [Bydureon] 2018-04-13 21:54:41 Yes 2 mg, SUB-Q, q Week, # 12 ea, 3 Refill(s), Pharmacy: [place] [address], give bydureon bcise [facility] [place] NovoFine Plus Insulin Pen [place] 32G 4mm=5/32 inch 04-13 21:54:26 Yes 1 ea, MISC, Daily, # 100 ea, 3 Refill(s) [facility] 24 HR dapagliflozin 5 MG / Metformin hyd rochloride 1000 MG Extended Release Oral Tablet [Xigduo] 2018-04-13 21:54:04 Yes 2 tab, PO, QAM, # 180 tab, 1 Refill(s), Pharmacy: [address] Symbicort 160/4.5 inhalation aerosol with adapter 2018-04-13 21:54:01 Yes See Instructions, IN VALERIO TWO PUFFS BY MOUTH TWICE DAILY, # 3 ea, 3 Refill(s), Pharmacy: [address] Amlodipine 10 MG / Hydrochlorothiazide 25 MG / valsartan 320 MG Oral Tablet 2018-04-13 21:53:58 Yes 1 tab, PO, Daily, # 90 tab, 1 Refill(s), Pharmacy: [facility] [address] [place] [address] Ventolin HFA 90 mcg/inh inhalation aerosol with adapter 2018-04-13 21:53:54 Yes 2 puff, INHALAT ION, QID, # 1 ea, 2 Refill(s), Pharmacy: [facility] [address] [place] [address] levothyroxine 25 mcg (0.025 mg) oral tablet 2018-01-14 11:31:34 Yes 25 microgram = 1 tab, PO, Daily, # 90 tab, 1 Refill(s), Pharmacy: [address] Triamcinolone Acetonide 0.001 MG/MG Topical Ointment 2 21:50:07 Yes 1 appl, TOP, TI D, # 60 gm, 0 Refill(s), Pharmacy: [address] Nystatin 100 UNT/MG Topical Ointment 2018-01-12 21:49:30 Ye s 1 appl, TOP, TID, # 30 gm, 0 Refill(s), Pharmacy: [address] meloxicam 15 mg oral tablet 2018-01-12 21:49:02 Yes 15 mg = 1 tab, PO, Daily, # 90 tab, 1 Refill(s), Pharmacy: [address] gabapentin 300 MG Oral Capsule 2018-01-12 21:46:22 Yes 300 mg = 1 cap, PO, TID, # 90 cap, 2 Refill(s), Pharmacy: [address] 24 HR dapagliflozin 5 MG / Metformin hyd rochloride 1000 MG Extended Release Oral Tablet [Xigduo] 2018-01-12 21:44:52 Yes 2 tab, PO, QAM, # 180 tab, 1 Refill(s), Pharmacy: [address] 3 ML insulin degludec 200 UNT/ML Pen Injector [Tresiba] 2018-01-12 21:43:00 Yes 56 unit, SUB-Q, Daily, # 12 pen(s), 1 Refill(s), Pharmacy: [address] pantoprazole 40 MG Enteric Coated Tablet [Protonix] 01-12 21:43:00 Yes 40 mg = 1 tab, P O, Daily, # 90 tab, 1 Refill(s), Pharmacy: [facility] Bianka Mccallum NovoFine Plus Insulin Pen [place] 32G 4mm=5/32 inch 01-12 21:43:00 Yes 1 ea, MISC, Daily, # 100 ea, 3 Refill(s) Bianka Mccallum 0.65 ML exenatide 3.08 MG/ML Prefilled Syringe [Bydureon] 2018-01-12 21:43:00 Yes 2 mg, SUB-Q, q Week, # 12 ea, 3 Refill(s), Pharmacy: [id number], give daviddeepti estherse Memor marin Alessio simvastatin 10 mg oral tablet 2018-01-12 18:03:04 Yes See Instructions, # 90 tab, TAKE ONE TABLET BY MOUTH AT BEDTIME, Pharmacy: [id number] Bianka Mccallum Tramadol 2017-10-16 16:16:00 No 50 mg, Route: PO, Drug form: TAB, Q6H, Dosing Weight 131.818, kg, PRN Pain Score 4-6, Start date: 10/16/17 10:16:00 CORE MOUNTER, Duration: 30 day, Stop date: 11/15/17 10:15:00 CORE MOUNTER Bianka Mccallum Ondansetron 2017-10-16 16:16:00 No 4 mg, Route: IVP, Q8H, Dosing Weight 131.818, kg, PRN Nausea & Vomiting, Start date: 10/16/17 10:16:00 CORE MOUNTER, Duration: 30 day, Stop date: 11/15/17 10:15:00 CORE MOUNTER Bianka Mccallum pregabalin 50 MG Oral Capsule [Lyrica] 2017-10-16 14:07:00 No 50 mg = 1 cap, PO, Daily, 0 Refill(s) Bianka Mccallum latanoprost 0.05 MG/ML Ophthalmic Solution 2017-10-16 14:07:00 Yes 1 drp, Each Affected Eye, Bedtime, # 1 btl, 1 Refill(s) Bianka Mccallum levofloxacin 750 mg oral tablet 2017-10-14 23:07:00 No 0 Refill(s) Bianka Mccallum nitazoxanide 500 MG Oral Tablet [Alinia] 2017-10-14 23:07:00 No 0 Refill(s) Bianka Mccallum Atropine Sulfate 0.0194 MG / Hyoscyamine Sulfate 0.104 MG / Phenobarbital 16.2 MG / Scopolamine Hydrobromide 0.0065 MG Oral Tablet [] 2017-10-14 23:07:00 No 0 Refill(s) [facility] breonna Mccallum omeprazole 40 mg oral delayed release capsule 2017-10-14 23:07:0 0 No 0 Refill(s) Bianka Mccallum doxycycline hyclate 100 MG Oral Tablet 2017-10-14 23:07:00 No 0 [facility] lin[facility] 0.145 MG Oral Capsule [Linzess] 2017-10-13 21:19:00 No 145 microgram = 1 cap, PO, Daily, 30 minutes prior to the first meal of the day, # 8 cap, 0 Refill(s), given to patient Bianka [place] Ondansetron 4 MG Oral Tablet [Zofran] 2017-10-13 21:07:00 Y es 4 mg = 1 tab, PO, Q6H, PRN Nausea/Vomiting, # 30 tab, 0 Refill(s), Pharmacy: [facility] [address] [place] [address] simvastatin 10 mg oral tablet 2017-10-13 21:07:00 No 10 mg = 1 tab, PO, Bedtime, # 90 tab, 0 Refill(s), Pharmacy: [facility] [address] [place] [address] levothyroxine 25 mcg (0.025 mg) oral tablet 2017-09-19 18:49:00 Yes 25 microgram = 1 tab, PO, Daily, # 90 tab, 0 Refill(s), Pharmacy: [facility] [address] [place] [address] Triamcinolone Acetonide 0.001 MG/MG Topical Ointment 2 19:02:00 Yes 1 appl, TOP, TI D, # 60 gm, 0 Refill(s), Pharmacy: [facility] [address] [place] [address] Nystatin 100 UNT/MG Topical Ointment 2017-09-10 19:02:00 Ye s 1 appl, TOP, TID, # 30 gm, 0 Refill(s), Pharmacy: [facility] [address] [place] [address] pantoprazole 40 MG Enteric Coated Tablet [Protonix] 2016-09 17:29:00 Yes 40 mg = 1 tab, P O, Daily, # 90 tab, 0 Refill(s), Pharmacy: [address] 3 ML insulin degludec 100 UNT/ML Pen Injector [Tresiba] 2017-09-10 17:18:08 Yes 50 unit, SUB-Q, Daily, # 45 mL, 1 Refill(s), Pharmacy: [facility] [address] [place] [address] 24 HR dapagliflozin 5 MG / Metformin hyd rochloride 1000 MG Extended Release Oral Tablet [Xigduo] 2017-09-10 17:17:20 Yes 2 tab, PO, QAM, # 180 tab, 1 Refill(s), Pharmacy: [address] Symbicort 160/4.5 inhalation aerosol with adapter 2017-09-10 17:17:18 Yes See Instructions, IN VALERIO TWO PUFFS BY MOUTH TWICE DAILY, # 3 ea, 3 Refill(s), Pharmacy: [address] Amlodipine 10 MG / Hydrochlorothiazide 25 MG / valsartan 320 MG Oral Tablet 2017-09-10 17:17:12 Yes 1 tab, PO, Daily, # 90 tab, 1 Refill(s), Pharmacy: [place] [address] Bobmissy valenzuela [place] Ventolin HFA 90 mcg/inh inhalation aerosol with adapter 2017-09-10 17:17:10 Yes 2 puff, INHALAT ION, QID, # 1 ea, 2 Refill(s), Pharmacy: [address] meloxicam 15 mg oral tablet 2017-09-10 17:17:00 Yes 15 mg = 1 tab, PO, Daily, # 90 tab, 1 Refill(s), Pharmacy: [address] gabapentin 300 MG Oral Capsule 2017-09-10 17:17:00 Yes 300 mg = 1 cap, PO, TID, # 90 cap, 0 Refill(s), Pharmacy: [facility] [address] [place] [address] methyldopa (ALDOMET) 500 MG tablet 2017-07-25 09:10:36 Y es 500mg [id number] Take 500 mg by mouth 3 (three) times a day. Eric Gonzalez dapagliflozin-metformin (XIGDUO XR) 10-1,000 mg tablet , IR & ER, biphasic 24hr 2017-07-25 09:10:36 Yes 2{tbl} QD Take 2 tablets by mouth daily. Eric Gonzalez insulin degludec (TRESIBA FLEXTOUCH U-100) 100 unit/mL (3 mL ) insulin pen 2017-07-25 09:10:36 Yes 50U QD Inject 50 Un its under the skin nightly. Eric Gonzalez exenatide microspheres (BYDUREON) 2 mg/0.65 mL pen injector 2017-07-25 09:10:36 Yes 2mg Q1W Inject 2 mg under the skin ev margaret 7 days. Eric Gonzalez pregabalin (LYRICA) 50 MG capsule 2017-07-25 09:10:36 Yes 50mg Q.5D Take 50 mg by mouth 2 (two) times a day. Sanket Gonzalez albuterol (PROAIR HFA,PROVENTIL HFA,VENTOLIN HFA) 90 mcg/act uation inhaler 2017-07-25 09:10:36 Yes 2{puff} Q6H Inhale 2 puffs every 6 (six) hours as needed for wheezing. Eric Gonzalez budesonide-formoterol (SYMBICORT) 160-4.5 mcg/actuation inha ler 2017-07-25 09:10:36 Yes 2{puff} Q.5D Inhale 2 puffs 2 (two) times a day. Eric Gonzalez nystatin (MYCOSTATIN) 100,000 unit/gram cream 2017-07-25 09:10:3 6 Yes Q.5D Apply topically 2 (two) times a day. Eric Gonzalez OMEPRAZOLE 40 MG CPDR 2014-12-01 00:00:00 No Take one capsule by mouth twice daily for 2 weeks Bianka leal BISMATROL MAXIMUM STRENGTH 525 MG/15ML SUSP 2014-12-01 00:00:00 No 15 ml po every 6 hours (4 times daily) for 2 weeks Bianka Mccallum METRONIDAZOLE 500 MG TABS 2014-12-01 00:00:00 No 1 tablet po every 6 hours for next 2 weeks [facility] Alessio CLARITHROMYCIN 500 MG TABS 2014-12-01 00:00:00 No 1 tablet po every 8 hours for 14 days Bianka Mccallum TETRACYCLINE HCL 500 MG [facility] 2014-12-01 00:00:00 Yes One tab po every 6 hours for 2 weeks Bianka Moreno nn CARAFATE 1 GM TABS 2014-11-28 00:00:00 Yes 1 tablet four times a day with meals Bianka Mccallum PANTOPRAZOLE SODIUM 40 MG [facility] 2014-11-28 00:00:00 No 1 tablet daily Bianka Mccallum SIMVASTATIN 20 MG TABS 2014-08-17 00:00:00 No 1 tablet at night Bianka Mccallum JENTADUETO 2.5-1000 MG TABS 2014-08-15 00:00:00 Yes 1 tab twice daily with meals Bianka Mccallum GABAPENTIN 300 MG [facility] 2014-08-15 00:00:00 Yes 1 capsule three times a day Bianka Mccallum VALSARTAN-HYDROCHLOROTHIAZIDE 160-12.5 MG TABS 2014-08-15 00:00: 00 Yes 1 tab by mouth daily Johnson valenzuela Alessio AMLODIPINE BESYLATE 5 MG TABS 2014-08-15 00:00:00 Yes 1 tablet daily Bianka Mccallum GLIPIZIDE 10 MG TABS 2014-08-15 00:00:00 Yes 1 tablet twice daily [facility] Alessio AMLODIPINE BESYLATE 5 MG TABS 2014-08-15 00:00:00 Yes 1 tablet daily Bianka Mccallum METFORMIN HCL ER 500 MG [id number] 2014-07-07 00:00:00 Yes 4 orally daily Bianka Mccallum LYRICA 75 MG [facility] 2014-07-07 00:00:00 Yes Bianka Mccallum VENTOLIN HFA 108 (90 BASE) MCG/ACT AERS 2014-07-07 00:00:00 Yes 2 puffs every 4-6 hours as needed for cough wheeze [facility] Alessio SYMBICORT 160-4.5 MCG/ACT AERO 2014-07-07 00:00:00 Yes 2 puffs twice daily Bianka Mccallum JARDIANCE 25 MG TABS 2014-07-07 00:00:00 No one orally daily Bianka cMcallum EXFORGE HCT 5-160-12.5 MG TABS 2014-07-07 00:00:00 No one tablet daily Bianka Mccallum METFORMIN HCL ER 500 MG [id number] 2014-07-07 00:00:00 No 4 orally daily [facility] Alessio VENTOLIN HFA 108 (90 BASE) MCG/ACT AERS 2014-07-07 00:00:00 Yes 2 puffs every 4-6 hours as needed for cough wheeze [facility] LYRICA 75 MG CAPS 2014-07-07 00:00:00 No [facility] JANUMET 50-1000 MG TABS 2014-05-11 00:00:00 Yes one tablet orally twice daily [facility] JANUMET XR 50-1000 MG [id number] 2014-05-11 00:00:00 No one tablet twice daily [facility] EXFORGE HCT 5-160-12.5 MG TABS 2014-05-04 00:00:00 No one tablet daily [facility] METFORMIN HCL ER 500 MG [id number] 2014-05-04 00:00:00 No Two tablets daily [facility] GLIPIZIDE 10 MG TABS 2014-05-04 00:00:00 No one tablet daily [facility] LYRICA 50 MG CAPS 2014-05-04 00:00:00 Yes one tablet twice a day [facility] VENTOLIN HFA 108 (90 BASE) MCG/ACT AERS 2014-05-04 00:00:00 Yes 2 puffs four times daily as needed for cough/wheeze [facility] SYMBICORT 160-4.5 MCG/ACT AERO 2014-05-04 00:00:00 No 2 puffs twice daily [facility] NYSTATIN-TRIAMCINOLONE CREA 2014-05-04 00:00:00 Yes use daily for rash area [facility] LOTRISONE 1-0.05 % CREA 2014-05-04 00:00:00 No Apply to affected areas twice a day for 10 days [facility] mel NIZORAL 2 % SHAM 2014-05-04 00:00:00 No clarisse ly twice weekly [facility] FLONASE 50 MCG/ACT SUSP 2014-05-04 00:00:00 No Two sprays each nostril at night [facility] ZYRTEC ALLERGY 10 MG CAPS 2014-05-04 00:00:00 No Take one capsule by mouth at night [facility] ADVANCED AM/PM MISC 2014-05-04 00:00:00 No two tablets twice daily as directed [facility] LYRICA 50 MG CAPS 2014-05-04 00:00:00 Yes one tablet twice a day [facility] GLIPIZIDE 10 MG TABS 2014-05-04 00:00:00 No one tablet daily [facility] LYRICA 50 MG CAPS 2014-05-04 00:00:00 No on e tablet twice a day Bianka Mccallum VENTOLIN HFA 108 (90 BASE) MCG/ACT AERS 2014-05-04 00:00:00 No 2 puffs four times daily as needed for cough/wheeze [facility] GLIPIZIDE 10 MG TABS 2014-05-04 00:00:00 No one tablet daily [facility] Alessio LYRICA 50 MG CAPS 2014-05-04 00:00:00 No on e tablet twice a day [facility] Alessio VENTOLIN HFA 108 (90 BASE) MCG/ACT AERS 2014-05-04 00:00:00 No 2 puffs four times daily as needed for cough/wheeze [facility] [place] METFORMIN HCL ER 500 MG [id number] 2014-05-04 00:00:00 No Two tablets daily [facility] amlodipine 10 mg tablet Take 1 tablet every day by ora l route for 90 days. amlodipine 10 mg tablet Take 1 tablet every day by oral route for 90 days. No 1 Q1D amlodipine 10 m g tablet Take 1 tablet every day by oral route for 90 days. [facility] ice Cymbalta 60 mg capsule,delayed release Take 1 capsule every day by oral route. Cymbalta 60 mg capsule,delayed release Take 1 capsule every day by oral route. No 1capsule(s) Q1D Cymbalta 60 mg capsule,delayed release Take 1 capsule every day by oral route. [facility] duloxetine 30 mg capsule,delayed release Take 1 capsule every day by oral route at bedtime for 90 days. duloxetine 30 mg capsule,delayed release Take 1 capsule every day by oral route at bedtime for 90 days. No 1capsule(s) Q1D duloxetine 30 mg capsule,delayed release Take 1 capsule every day by oral route at bedtime for 90 days. [facility] ractice ergocalciferol (vitamin D2) 1,250 mcg (5 0,000 unit) capsule Take 1 capsule every week by oral route. ergocalciferol (vitamin D2) 1,250 mcg (5 0,000 unit) capsule Take 1 capsule every week by oral route. No 1capsule(s) Q1W ergocalciferol (vitamin D2) 1,250 mcg (50,000 unit) capsule Take 1 capsule every week by oral route. [facility] carlos gabapentin 300 mg capsule Take 1 capsule 3 times a day by oral route for 90 days. gabapentin 300 mg capsule Take 1 capsule 3 times a day by oral route for 90 days. No 1capsule(s) TID gabapentin 300 mg capsule Take 1 capsule 3 times a day by oral route for 90 days. [facility] hydrochlorothiazide 25 mg tablet Take 1 tablet every day by oral route for 90 days. hydrochlorothiazide 25 mg tablet Take 1 tablet every day by oral route for 90 days. No 1 Q1D hydrochlorothi azide 25 mg tablet Take 1 tablet every day by oral route for 90 days. [facility] latanoprost 0.005 % eye drops 1 drop in each eye in th e evening latanoprost 0.005 % eye drops 1 drop in each eye in the evening No latanoprost 0.005 % eye drops 1 drop in each eye in the evening [facility] levothyroxine 25 mcg tablet Take 1 table t every day by oral route at bedtime for 90 days. levothyroxine 25 mcg tablet Take 1 table t every day by oral route at bedtime for 90 days. No 1 Q1D lev othyroxine 25 mcg tablet Take 1 tablet every day by oral route at bedtime for 90 days. [facility] Linzess 145 mcg capsule Take 1 capsule every day by or al route. Linzess 145 mcg capsule Take 1 capsule every day by oral route. No 1capsule(s) Q1D Linzess 145 mcg capsule Take 1 capsule every day by oral route. [facility] meloxicam 15 mg tablet Take 1 tablet every day by oral route. meloxicam 15 mg tablet Take 1 tablet every day by oral route. No 1 Q1D meloxicam 15 mg tablet Take 1 tablet every day by oral route. [facility] Novolog Flexpen U-100 Insulin aspart 100 unit/mL (3 mL) subcutaneous Inject 5 units in the am, at lunch, and 10 units in evening Novolog Flexpen U-100 Insulin aspart 100 unit/mL (3 mL) subcutaneous Inject 5 units in the am, at lunch, and 10 units in evening No Salvatore log Flexpen U-100 Insulin aspart 100 unit/mL (3 mL) subcutaneous Inject 5 units in the am, at lunch, and 10 units in evening [facility] nyst[facility] 100,000 unit/gram topical ointm ent APPLY TO THE AFFECTED AREA(S) BY TOPICAL ROUTE 2 TIMES PER DAY - under the breast and groin area nystatin 100,000 unit/gram topical ointment APPLY TO THE AFFECTED AREA(S) BY TOPICAL ROUTE 2 TIMES PER DAY - under the breast and groin area No nystatin 100,000 unit/gram topical ointment APPLY TO THE AFFECTED AREA(S) BY TOPICAL ROUTE 2 TIMES PER DAY - under the breast and groin area [facility] nystatin 100,000 unit/mL oral suspension nystatin 100, 000 unit/mL oral suspension No nystatin 100,000 unit/mL or al suspension [facility] pantoprazole 40 mg tablet,delayed releas e Take 1 tablet every day by oral route for 90 days. pantoprazole 40 mg tablet,delayed releas e Take 1 tablet every day by oral route for 90 days. No 1 Q1D pantoprazole 40 mg tablet,delayed release Take 1 tablet every day by oral route for 90 days. [facility] simvastatin 10 mg tablet Take 1 tablet e very day by oral route at bedtime for 90 days. simvastatin 10 mg tablet Take 1 tablet e very day by oral route at bedtime for 90 days. No 1 Q1D simvastati n 10 mg tablet Take 1 tablet every day by oral route at bedtime for 90 days. [facility] Tresiba FlexTouch U-200 insulin 200 unit /mL (3 mL) subcutaneous pen Inject 54 units at night Tresiba FlexTouch U-200 insulin 200 unit /mL (3 mL) subcutaneous pen Inject 54 units at night No Tresiba FlexTouch U-200 insulin 200 unit/mL (3 mL) subcutaneous pen Inject 54 units at night [facility] triamcinolone acetonide 0.1 % topical cream Apply by t opical route for 14 days. triamcinolone acetonide 0.1 % topical cream Apply by topical route for 14 days. No triamcinol one acetonide 0.1 % topical cream Apply by topical route for 14 days. [facility] Trulicity 0.75 mg/0.5 mL subcutaneous pe n injector Inject 75 units once every week Trulicity 0.75 mg/0.5 mL subcutaneous pe n injector Inject 75 units once every week No Trulicity 0.7 5 mg/0.5 mL subcutaneous pen injector Inject 75 units once every week [facility] Trulicity 1.5 mg/0.5 mL subcutaneous pen injector Inject 0.5 mL every week by subcutaneous route. Trulicity 1.5 mg/0.5 mL subcutaneous pen injector Inject 0.5 mL every week by subcutaneous route. No .5 mL Q1W Trulicity 1.5 mg/0.5 mL subcutaneous pen injector Inject 0.5 mL every week by subcutaneous route. [facility] valsartan 320 mg tablet Take 1 tablet every day by ora l route for 90 days. valsartan 320 mg tablet Take 1 tablet every day by oral route for 90 days. No 1 Q1D valsartan 320 m g tablet Take 1 tablet every day by oral route for 90 days. [facility] Ventolin HFA 90 mcg/actuation aerosol inhaler PRN use Ventolin HFA 90 mcg/actuation aerosol inhaler PRN use No Ventolin HFA 90 mcg/actuation aerosol inhaler PRN use [facility] Xigduo XR 5 mg-1,000 mg tablet,extended release Take 2 tablets every day by oral route for 90 days. Xigduo XR 5 mg-1,000 mg tablet,extended release Take 2 tablets every day by oral route for 90 days. No 2 Q1D Xigduo XR 5 mg- 1,000 mg tablet,extended release Take 2 tablets every day by oral route for 90 days. [facility] teetee Immunizations Ordered Immunization Name Filled Immunization Name Date Status Comments Source influenza, injectable, quadrivalent influenza, injectable, q uadrivalent 2019-07-14 00:00:00 Completed [facility] Vital Signs Vital Name Observation Time Observation Value Comments Source BP Diastolic 2019-11-09 00:00:00 91 mm[Hg] [facility] Height 2019-11-09 00:00:00 60.5 [in_i] [facility] BMI (Body Mass Index) 2019-11-09 00:00:00 56.3 kg/m2 [facility] BP Systolic 2019-11-09 00:00:00 171 mm[Hg] [facility] Body Weight 2019-11-09 00:00:00 293.2 [lb_av] [facility] Systolic (mm Hg) 2019-08-10 10:10:00 Bhaskar Mccallum Diastolic (mm Hg) 2019-08-10 10:10:00 [facility] [place] Heart Rate 2019-08-10 10:10:00 [facility] [place] Temperature Oral (F) 2019-08-10 10:10:00 98.5 F [facility] Height 2019-08-10 10:10:00 157.48 cm [facility] [place] Weight 2019-08-10 10:10:00 [facility] BMI Calculated 2019-08-10 10:10:00 [facility] [place] Systolic (mm Hg) 2019-06-14 20:55:00 Bhaskar rial [place]essio Diastolic (mm Hg) 2019-06-14 20:55:00 [facility] [place] Heart Rate 2019-06-14 20:55:00 [facility] Temperature Oral (F) 2019-06-14 20:55:00 98.6 F [facility] [place] Height 2019-06-14 20:55:00 154.94 cm [facility] [place] Weight 2019-06-14 20:55:00 [facility] [place] BMI Calculated 2019-06-14 20:55:00 [facility] [place] Systolic (mm Hg) 2019-05-14 17:02:00 Bhaskar rial [facility]essio Diastolic (mm Hg) 2019-05-14 17:02:00 [facility] [place] Heart Rate 2019-05-14 17:02:00 [facility] Temperature Oral (F) 2019-05-14 17:02:00 98.6 F [facility] [place] Height 2019-05-14 17:02:00 157.48 cm [facility] [place] Weight 2019-05-14 17:02:00 [facility] BMI Calculated 2019-05-14 17:02:00 [facility] [place] Weight 2019-04-29 13:07:00 [facility] BMI Calculated 2019-04-29 13:07:00 [facility] [place] Height 2019-04-29 13:07:00 157.48 cm [facility] Systolic (mm Hg) 2019-04-29 13:07:00 Bhaskar rial [place] Diastolic (mm Hg) 2019-04-29 13:07:00 [facility] [place] Heart Rate 2019-04-29 13:07:00 [facility] Temperature Oral (F) 2019-04-29 13:07:00 98.4 F [facility] BMI Calculated 2018-08-25 14:47:00 [facility] Weight 2018-08-25 14:47:00 [facility] [place] Height 2018-08-25 14:47:00 162.56 cm [facility] Heart Rate 2018-08-25 14:47:00 [facility] [place] Systolic (mm Hg) 2018-08-25 14:47:00 Bhaskar rial [place] Diastolic (mm Hg) 2018-08-25 14:47:00 [facility] [place] BMI Calculated 2018-07-13 20:31:00 [facility] [place] Weight 2018-07-13 20:31:00 [facility] [place] Height 2018-07-13 20:31:00 154.94 cm [facility] [place] Heart Rate 2018-07-13 20:31:00 [facility] [place] Respitory Rate 2018-07-13 20:31:00 [facility] Temperature Oral (F) 2018-07-13 20:31:00 98 F [facility] Systolic (mm Hg) 2018-07-13 20:31:00 Bhaskar rial [facility] Diastolic (mm Hg) 2018-07-13 20:31:00 [facility] [place] Height 2018-04-13 21:30:00 157.48 cm [facility] [place] Weight 2018-04-13 21:30:00 [facility] BMI Calculated 2018-04-13 21:30:00 [facility] Systolic (mm Hg) 2018-04-13 21:30:00 Bhaskar rial [place] Diastolic (mm Hg) 2018-04-13 21:30:00 [facility] [place] Temperature Oral (F) 2018-04-13 21:30:00 98.3 F [facility] [place] Heart Rate 2018-04-13 21:30:00 [facility] Height 2018-01-12 21:08:00 157.48 cm [facility] Weight 2018-01-12 21:08:00 [facility] [place] BMI Calculated 2018-01-12 21:08:00 [facility] [place] Systolic (mm Hg) 2018-01-12 21:08:00 Bhaskar rial [place] Diastolic (mm Hg) 2018-01-12 21:08:00 [facility] [place] Heart Rate 2018-01-12 21:08:00 [facility] Temperature Oral (F) 2018-01-12 21:08:00 98.2 F [facility] [place] BMI Calculated 2017-10-16 14:12:00 [facility] Weight 2017-10-16 14:12:00 [facility] Height 2017-10-16 14:12:00 157.48 cm [facility] Weight 2017-10-13 20:15:00 [facility] BMI Calculated 2017-10-13 20:15:00 [facility] Height 2017-10-13 20:15:00 157.48 cm [facility] Heart Rate 2017-10-13 20:15:00 [facility] [place] Respitory Rate 2017-10-13 20:15:00 [facility] [place] Temperature Oral (F) 2017-10-13 20:15:00 97.8 F [facility] Systolic (mm Hg) 2017-10-13 20:15:00 Bhaskar rial [facility] Diastolic (mm Hg) 2017-10-13 20:15:00 [facility] [place] BMI Calculated 2017-09-10 16:39:00 [facility] [place] Height 2017-09-10 16:39:00 157.48 cm [facility] [place] Systolic (mm Hg) 2017-09-10 16:39:00 Bhaskar rial [facility] Diastolic (mm Hg) 2017-09-10 16:39:00 [facility] Weight 2017-09-10 16:39:00 [facility] Temperature Oral (F) 2017-09-10 16:39:00 98.0 F [facility] Heart Rate 2017-09-10 16:39:00 [facility] Height 2015-02-06 19:20:32 [facility] [place] Weight 2015-02-06 19:20:32 [facility] Temperature Oral (F) 2015-02-06 19:20:32 97.6 F [facility] Heart Rate 2015-02-06 19:20:32 [facility] Systolic (mm Hg) 2015-02-06 19:20:32 Bhaskar rial [facility] Diastolic (mm Hg) 2015-02-06 19:20:32 [facility] Height 2014-11-28 19:26:11 [facility] Weight 2014-11-28 19:26:11 [facility] Temperature Oral (F) 2014-11-28 19:26:11 97.6 F [facility] Heart Rate 2014-11-28 19:26:11 [facility] [place] Systolic (mm Hg) 2014-11-28 19:26:11 Bhaskar rial [place] Diastolic (mm Hg) 2014-11-28 19:26:11 [facility] Height 2014-08-15 17:19:23 [facility] Weight 2014-08-15 17:19:23 [facility] Temperature Oral (F) 2014-08-15 17:19:23 97.1 F [facility] Heart Rate 2014-08-15 17:19:23 [facility] [place] Systolic (mm Hg) 2014-08-15 17:19:23 Bhaskar rial [place] Diastolic (mm Hg) 2014-08-15 17:19:23 [facility] Height 2014-07-07 14:32:26 [facility] Weight 2014-07-07 14:32:26 [facility] [place] Temperature Oral (F) 2014-07-07 14:32:26 98.4 F [facility] [place] Heart Rate 2014-07-07 14:32:26 [facility] Systolic (mm Hg) 2014-07-07 14:32:26 Bhaskar rial [facility] Diastolic (mm Hg) 2014-07-07 14:32:26 [facility] Height 2014-05-26 14:23:46 [facility] Temperature Oral (F) 2014-05-26 14:23:46 98.1 F [facility] Respitory Rate 2014-05-26 14:23:46 [facility] Heart Rate 2014-05-26 14:23:46 [facility] [place] Systolic (mm Hg) 2014-05-26 14:23:46 Bhaskar rial [place] Diastolic (mm Hg) 2014-05-26 14:23:46 [facility] Weight 2014-05-11 14:30:26 [facility] [place] Temperature Oral (F) 2014-05-11 14:30:26 98.4 F [facility] Heart Rate 2014-05-11 14:30:26 [facility] Systolic (mm Hg) 2014-05-11 14:30:26 Bhaskar rial [facility] Diastolic (mm Hg) 2014-05-11 14:30:26 [facility] Weight 2014-05-04 13:40:11 [facility] Height 2014-05-04 13:40:11 [facility] [place] Temperature Oral (F) 2014-05-04 13:40:11 98.4 F [facility] Heart Rate 2014-05-04 13:40:11 [facility] [place] Systolic (mm Hg) 2014-05-04 13:40:11 Bhaskar rial [place] Diastolic (mm Hg) 2014-05-04 13:40:11 [facility] orial [place] Procedures Procedure Date / Time Performed Performing Clinician Glenny hallie Collection of venous blood by venipuncture 2018-01-12 21:40:00 Bianka Mccallum Fusion 2017-08-13 06:00:00 Bianka mckeon Colonoscopy<sup>1</sup> 2017-07-12 05:00:00 Bhaskar Mccallum Colonoscopy 2016-09-29 00:00:00 [facility] ly Practice Egd 2016-09-29 00:00:[address] [facility] Eye Surgery 2016-09-29 00:00:00 [facility] ly [facility] Orthopedic Surgery 2016-09-29 00:00:00 [facility] amily [facility] diabetic foot check 2014-08-15 17:19:23 Bianka Mccallum diabetic eye exam 2014-05-26 05:00:00 [facility] Travis leal Orthopedic Surgery 2009-09-29 00:00:00 [facility] Hysterectomy (Total) 2007-09-29 00:00:00 [facility] Cholecystectomy (Gall Bladder Removal) 1980-09-29 00:00:00 [facility] Tubal Ligation 1978-09-29 00:00:00 [place] [facility] vanessa Plan of Care Planned Activity Planned Date Details Comments Source Future Scheduled Test 2020-04-29 00:00:00 INFLUENZA VACCINE [code = INFLUENZA VACCINE] Eric Gonzalez Diagnostic Test Pending 2019-11-09 00:00:00 TSH, serum or pl asma [code = TSH, serum or plasma] [facility] Diagnostic Test Pending 2019-11-09 00:00:00 HbA1c (hemoglobi n A1c), blood [code = HbA1c (hemoglobin A1c), blood] [facility] P[facility] 2019-11-09 00:00:00 CMP, serum or pl asma [code = CMP, serum or plasma] [facility] Diagnostic Test Pending 2019-11-09 00:00:00 microalbumin/cre atinine, mass ratio, urine [code = microalbumin/creatinine, mass ratio, urine] [facility] Diagnostic Test Pending 2019-11-09 00:00:00 CBC w/ auto diff [code = CBC w/ auto diff] [facility] Diagnostic Test Pending 2019-11-09 00:00:00 lipid panel, ser um [code = lipid panel, serum] [facility] Diagnostic Test Pending 2019-11-09 00:00:00 vitamin D, 25-hy droxy, total, serum [code = vitamin D, 25-hydroxy, total, serum] [facility] Future Scheduled Test 2019-07-25 00:00:00 BREAST CANCER SCRE ENING [code = BREAST CANCER SCREENING] [facility] Future Scheduled Test 2007-12-24 00:00:00 COLONOSCOPY SCREEN ING [code = COLONOSCOPY SCREENING] [facility] Scheduled Test 2007-12-24 00:00:00 SHINGLES VACCINES (#1) [code = SHINGLES VACCINES (#1)] [facility] Scheduled Test 1978 00:00:00 Screening for nithin gnant neoplasm of cervix (procedure) [code = 658372279] [facility] Encounters Start Date/Time End Date/Time Encounter Type Admission Type Attendi [facility] Care Department Encounter ID Source 2019-11-09 00:00:00 2019-11-09 00:00:00 Pratibha raymond MD: [address] [facility] , [address], [place] [address], Ph. [facility] [id number] [facility] 2019-08-10 16:00:00 2019-08-10 23:59:59 Outpatient Pratibha Marin [facility] [id number] 2019-08-03 06:24:31 2019-08-04 06:24:31 Outpatient [facility] [id number] 2019-06-14 16:00:00 2019-06-14 23:59:59 Outpatient Pratibha Marin [facility] [id number] 2019-05-14 11:45:00 2019-05-14 23:59:59 Outpatient Pratibha Marin [facility] [id number] 2019-05-11 10:35:19 2019-05-12 23:59:59 Outpatient [facility] [id number] 2019-04-29 21:03:19 2019-04-30 21:03:19 Outpatient [facility] [id number] 2019-04-29 08:00:00 2019-04-29 23:59:59 Outpatient Pratibha Marin [facility] [id number] 2018-08-25 09:48:00 2018-08-26 23:59:59 Outpatient [facility] [id number] 2018-08-25 08:45:00 2018-08-25 23:59:59 Outpatient Jasiel Mcpherson [facility] [id number] 2018-07-13 16:00:00 2018-07-13 23:59:59 Outpatient Pratibha Marin [facility] [id number] 2018-04-13 16:00:00 2018-04-13 23:59:59 Outpatient Pratibha Marin [facility] [id number] 2018-03-20 10:16:00 2018-03-20 23:59:00 Outpatient Vic Sawyer [facility] [id number] 2018-02-13 08:37:00 2018-02-13 23:59:00 Outpatient Pratibha Marin [facility] [id number] 2018-01-12 16:00:00 2018-01-12 23:59:59 Outpatient Pratibha Marin [facility] [id number] 2017-10-16 07:01:00 2017-10-16 23:59:00 Outpatient Luis Geovanitinylina [facility] [id number] 2017-10-13 14:30:00 2017-10-13 23:59:59 Outpatient Pratibha Marin [facility] [id number] 2017-10-13 14:30:00 2017-10-13 23:59:59 Outpatient Pratibha Marin [facility] [id number] 2017-09-19 10:29:00 2017-09-20 23:59:59 Outpatient [facility] [id number] 2017-09-10 10:30:00 2017-09-10 23:59:59 Outpatient Pratihba Marin [facility] [id number] 2017-09-08 15:39:00 2017-09-08 23:59:00 Outpatient Vic Sawyer [facility] [id number] 2017-07-19 09:29:00 2017-07-19 23:59:00 Outpatient Kang Spencer [id number] 2017-05-21 13:00:00 2017-05-21 13:00:00 Outpatient [place] [facility] [id number] Results Test Description Test Time Test Comments Results Result Comments Source CHEST SINGLE (PORTABLE) 2020-08-07 02:34:00 [facility] 1955 Sex: F [place] [address] Patient Name: PHIL BANEGAS MR #: [id number] : 1955 Age/Sex: 64/F Req #: [id number] [facility] Physician: Ordered by: DENISE JACOB MD Report #: [id number] Location: ER Room/Bed: Procedure: [id number] DX/CHEST SINGLE (PORTABLE) Exam Date: 08/07/20 Exam Time: 0145 REPORT STATUS: Signed EXAMINATION: CHEST SINGLE (MAURICIO BLE) INDICATION: HEADACHE, WEAKNESS [id number] Y COMPARISON: 03/20/2010 FINDINGS: AP view TUBES and LINES: None. LUNGS: Limited by body habitus. Lungs are well inflated. There is no evidence of pneumonia or pulmonary edema. PLEURA: No pleural effusion or pneumothorax. HEART AND MEDIASTINUM: The cardiomediastinal silhouette is u nremarkable. BONES AND SOFT TISSUES: No acute osseous lesion. Partially visualized cervical spine fusion hardware. Soft tissues are unremarkable. UPPER ABDOMEN: No free air under the diaphragm. IMPRESSION: No acute thoracic abnormality. Signed by: Dr. Mika Mallory MD on 08/07/2020 2:35 AM Dictated By: MIKA MALLORY MD 4 Transcribed By: TWIN on 08/07/20234 COPY TO: DENISE JACOB MD CT BRAIN WO 2020-08-07 02:09:00 [facility] : 1955 Sex: F [place] [address] Patient Name: PHIL BANEGAS MR #: [id number] : 1955 Age/Sex: 64/F Req #: [id number] Adm Physician: Ordered by: DENISE JACOB MD Report #: [id number] Location: Room/Bed: Procedure: [id number] CT/CT BRAIN WO Exam Date: 08/07/20 Exam Time: 0145 REPORT STATUS: Signed EXAMINATION: Head CT without contrast. HISTORY:Headache, elevated blood pressure. COMPARISON:None. TECHNIQUE: Multidetector axial images were obtained from the foramen magnum to the vertex without contrast. The images were reconstructed using brain and bone algorithms. Thin section brain images were reformatted into coronal and sagittal planes. Dose modulation, iterative reconstruction, and/or weight based adjustment of the mA/kV was utilized to reduce the radiation dose to as low as reasonably achievable. Intravenous contrast: None IMAGE QUALITY: Acceptable. FINDINGS: Skull/scalp: No lytic or blastic. lesions. No surgical changes. Parenchyma: Nonspecific bilateral frontoparietal patchy white matter hypodensity are likely related to small vessel ischemic changes. No acute hemorrhage, mass or acute major vascular territorial infarct. Arteries: No density suggestive of thrombosis. Dural sinuses: No abnormal density suggestive of thrombosis. Ventricles: No hydrocephalus or displacement. Extra-axial spaces: No abnormal density. Brain volume: Mild generalized cerebral volume loss. Craniocervical junction: No mass, Chiari malformation, or basilar invagination. Sella: No mass. Paranasal/mastoid sinuses: Opacification of the visualized portion of left maxillary sinus. IMPRESSION: No acute intracranial abnormality. Mild supratentorial white matter microvascular ischemic changes. Mild generalized cerebral volume loss. Signed by: Dr. Niurka Cutler M.D. on 08/07/2020 2:12 AM Dictated By: NIURKA CUTLER MD 0212 Transcribed By: TWIN on 08/07/20 0212 COPY TO: DENISE JACOB MD CHEM PANEL 2017-09-10 18:26:00 [facility] [place] CHEM PANEL 2017-09-10 18:26:00 27 [facility] [place] CHEM PANEL 2017-09-10 18:26:00 30 [facility] [place] CHEM PANEL 2017-09-10 18:26:00 4.3 [facility] [place] CHEM PANEL 2017-09-10 18:26:00 138 [facility] [place] CHEM PANEL 2017-09-10 18:26:00 101 [facility] [place] CHEM PANEL 2017-09-10 18:26:00 28 [facility] [place] CHEM PANEL 2017-09-10 18:26:00 10.0 [facility] [place] CHEM PANEL 2017-09-10 18:26:00 0.83 [facility] [place] CHEM PANEL 2017-09-10 18:26:00 212 [facility] [place] CHEM PANEL 2017-09-10 18:26:00 77 [facility] [place] CHEM PANEL 2017-09-10 18:26:00 23 [facility] [place] CHEM PANEL 2017-09-10 18:26:00 89 [facility] [place] CHEM PANEL 2017-09-10 18:26:00 3.4 [facility] [place] CHEM PANEL 2017-09-10 18:26:00 3.8 [facility] [place] CHEM PANEL 2017-09-10 18:26:00 7.2 [facility] [place] CHEM PANEL 2017-09-10 18:26:00 0.5 [facility] [place] CHEM PANEL 2017-09-10 18:26:00 1.1 [facility] [place] HEMATOLOGY 2017-09-10 18:26:00 62.9 [facility] [place] HEMATOLOGY 2017-09-10 18:26:00 6.3 [facility] [place] HEMATOLOGY 2017-09-10 18:26:00 26.3 [facility] [place] HEMATOLOGY 2017-09-10 18:26:00 3.8 [facility] [place] HEMATOLOGY 2017-09-10 18:26:00 0.7 [facility] [place] HEMATOLOGY 2017-09-10 18:26:00 89.9 [facility] [place] HEMATOLOGY 2017-09-10 18:26:00 33.1 [facility] [place] HEMATOLOGY 2017-09-10 18:26:00 Test Item MCH (test code = MCH) 29.8 pg 27.0-33.0 [facility] LqlfgkdYPBAKPTPZJ1954-14-19 18:26:0012.7[facility] 2017-09-10 18:26:66640Njtxwren JhwownpJZHFXYYCJI6426-59-49 18:26:0011.4[facility] QdnmfphGOEHSHXPUE2439-16-46 18:26:004.67[facility] JykvtitRXSXGJWTBN6837-16-15 18:26:0013.9[facility] AczsqkpZQCPCRZQWK3266-20-98 18:26:0042.0[facility] WXRVPSVSRN8647-26-96 18:26:40332Efgsupxh EdtfhdiXVVCIGFSVL7277-85-04 18:26:00 2157[facility] DlxtqfeJVTBRULCIV8595-73-60 18:26:397678Esierfuz HermannHEMATOLOGY 2017-09-10 18:26:0057[facility] AdtklixKYRFSMJVPP5815-85-35 18:26:16996Yghmcgqo UublttiZKEFLXIVAM1113-43-50 18:26:008.2[facility] EpcgrtxAESHNI2179-55-26 18:26:00 153[facility] QgnwvshCEPWCK0960-66-20 18:26:004.0[facility] LlrfsafRMHYIY9135-72-85 18:26:56632Owzsnatj VdvkeydACENRG4365-92-53 18:26:20530Knetzyzx HermannLIPIDS 2017-09-10 18:26:58084Uoxychms CwlbbvfPGXYRM0008-83-16 18:26:0051[facility]annSPECIAL TVFWRSIAX4027-79-63 18:26:008.5[facility] CHEMISTRY 2017-09-10 18:26:0062.9[facility]ann[facility] AEEQVJDQM1434-67-34 18:26:006.3 [facility] ADRPRVVSS0805-42-22 18:26:0026.3[facility] WBLWNNHDP3528-91-97 18:26:003.8[facility] DWLBKFZHN7193-93-23 18:26:000.7[facility] GDUZXUHYH5860-16-93 18:26:0089.9[facility] LFAEJAGWP6065-51-96 18:26:0033.1[facility] CHEMISTRY 2017-09-10 18:26:00* Test Item Value Reference Range Interpretation Comments MCH (test code = MCH) 29.8 pg 27.0-33.0 [facility] WVZCZXCUK5775-85-62 18:26:0012.7[facility]ann[facility] YVXEMJZYS8806-80-40 18:26:57907Xyxfrffl HermannSPECIAL LJGJUGVRT4403-19-46 18:26:0011.4[facility]ann[facility] JDRVKGFJV0385-24-53 18:26:004.67[facility] TOGLPEIDC2650-65-54 18:26:0013.9[facility] CHEMISTRY 2017-09-10 18:26:0042.0[facility] FIPVDBGPF1220-57-98 18:26:15050 [facility] SHNATSWKE6976-05-91 18:26:804656Jxwdbnsv HermannSPECIAL JOUWEUHQA8365-02-40 18:26:703237Pbayjexb HermannSPECIAL VCLKHSEVS6526-29-65 18:26:0057[facility]annSPE[facility] WDNTMWYRP0111-43-20 18:26:78513Gszhywwx HermannSPECIAL YGPZETTQF1555-72-73 18:26:72478Jngzbtvd HermannSPECIAL CHEMISTRY 2017-09-10 18:26:008.2[facility]ann[facility] TNVSPWLOT6959-90-22 18:26:0027 [facility] YBWIRTYVK2531-49-83 18:26:0030[facility] RIXNMHHBT5588-85-26 18:26:000.3[facility]ann[facility] YKZRKNSYU9668-48-05 18:26:004.3[facility] FJRLSSWMD5713-11-90 18:26:64974Qboagdah HermannSPECIAL TJUAAVEFM6208-56-75 18:26:51852Uecximng HermannSPECIAL CHEMISTRY 2017-09-10 18:26:0028[facility] TLOZZDWVS3640-76-39 18:26:0010.0 [facility] CJAKQUJYX4167-77-46 18:26:000.83[facility]ann[facility] JCHOFMMUD8962-74-36 18:26:82941Rykxfotr HermannSPECIAL BFCJOVLSC9348-42-55 18:26:0077[facility]annSPE[facility] AXCLVVRTA9257-73-54 18:26:0023[facility] [place] SPECIAL FZTVBODFN0854-53-58 18:26:0089[facility] CHEMISTRY 2017-09-10 18:26:003.4[facility]ann[facility] GTSKQAACK0966-68-56 18:26:003.8 [facility] BOCZKJFXJ6299-63-48 18:26:007.2[facility]annSPECIAL XDCUVLWDQ8606-61-28 18:26:000.5[facility]annSPECIAL QVZEIHLPZ8517-05-06 18:26:001.1[facility] HermannURINE RDPP7644-41-36 18:26:000.3[facility] [place] Zaalfbwtt0765-56-15 20:45:0010.0[facility] LauyfhrWzqcirvtz1181-44-94 20:45:76603 Memorial SwqtvehOoiwxdoxq0486-23-69 20:45:001.7[facility] HermannChemistry 2015-02-06 20:45:21560 MEQ/LMemorial PzczsbqTpqzbxzuz0930-09-36 20:45:003.9 MEQ/LMemorial BkjouirNgayotxwd6287-93-17 20:45:001.0[facility] HermannChemistry 2015-02-06 20:45:0018[facility] HrjlskdJamuaebby9564-41-41 20:45:00* Test Item Value Reference Range Interpretation Comments BUN/CREAT (test code = BUN/CREAT) 18 1 6-25 [facility] YfwogjqYbawcgovu2115-99-65 20:45:003.8[facility]annChemistry 2015-02-06 20:45:0010.3[facility] BdmyxwiEysaclqhj8432-78-52 20:45:0054[facility] EhkdflkSoqzdchlb9133-01-61 20:45:0053[facility] DgvpxocTsltbxuqu0491-20-30 20:45:0090[facility] OqatacuYiavlincif0568-97-60 20:45:0014.6[facility] Iyqjmmufip5616-58-00 20:45:0044.5[facility] DvbhnszFtycnqudor0714-34-66 20:45:00 218 K/CMMMemorial RutprorQfqvjqvvg7068-32-88 20:55:008.1[facility] [place] Grxbeheij6865-29-71 20:55:0050[facility] GmpxbvoGdmzenudf4586-33-33 20:55:77226 MEQ/LMemorial RytvfoxDyqzyribf6422-78-43 20:55:008.1[facility]ann[facility] 2014-11-28 20:55:0050[facility] LmbjuusTpnttzmph5552-40-09 20:55:71153 MEQ/L [facility] OuyqwwfCkrzeinuy6854-62-78 20:55:003.5 MEQ/LMemorial HermannChemistry 2014-11-28 20:55:001.0[facility] VmetqbaChwzbpwub8269-69-22 20:55:0014[facility] FlgzvlaPpprwsrcv5141-60-04 20:55:00* Test Item Value Reference Range Interpretation Comments BUN/CREAT (test code = BUN/CREAT) 14 1 6-25 [facility] AltybccKrfqrzhto4490-97-60 20:55:003.7[facility]annChemistry 2014-11-28 20:55:0010.0[facility] GxymvpnEzotpjypr5843-59-92 20:55:0060[facility] HscraffFodedektk0646-86-10 20:55:0062[facility] AycsgcpLpeobfhzm5636-75-73 20:55:55467Woxkzpuo VibddzdUtlioiafth4927-64-69 20:55:0013.8[facility] [place] Nbztwgeazg4444-98-78 20:55:0042.1[facility] MgqxabyIzdpxwinib5352-98-04 20:55:00 197 K/CMMMemorial DsbxwqbJnfdbebde3116-85-97 18:12:008.0[facility] Euxnfsuac5838-20-62 18:12:003.360[facility] ZxdskqeNpjvxxisf5219-25-43 18:12:07424 [facility] JnglcslUokysaidj1826-86-00 18:12:008.0[facility]annChem[facility] 2014-08-15 18:12:003.360[facility] RvjvufvItabhnabq7030-85-20 18:12:67601Ebppbcik MespngsWunwhagnb8425-06-74 18:12:54870Uhmjkqed QyrgpomUibnchrst6068-55-98 18:12:0055[facility] BpchrjgQrtwefedj5653-59-43 18:12:0076[facility] Uppbnjjeo1679-87-52 18:12:65362 MEQ/LMemorial NjrzlyrSicbfjcii9575-28-39 18:12:003.5 MEQ/LMemorial JpczbjiSrszfvicy4432-46-39 18:12:000.7[facility] Anonwzyvd7138-48-44 18:12:0017[facility] KkrfleuOpxcqigsv0474-50-31 18:12:00* Test Item Value Reference Range Interpretation Comments BUN/CREAT (test code = BUN/CREAT) 24 1 6-25 [facility] ZccgbwjVdsrjzilf9414-78-52 18:12:003.9[facility]annChem[facility] 2014-08-15 18:12:009.7[facility] MpqrztxVmxevhrto0810-24-01 18:12:008.0[facility] TctggofBvmfpwltg0576-65-00 18:12:003.360[facility] JjwkdraQzurckdic8111-30-42 18:12:74914Ottlfuhv SesorikBzehyuqug2942-65-02 18:12:0051[facility] [place] Vklojievd9553-68-27 18:12:0042[facility] CynlrsfYiphjubzy8300-70-43 18:12:91740 [facility] AceegdyHygtaydab5583-21-15 20:56:0010.7[facility]annChemistry 2014-05-04 20:56:25374Nzmphwgk QqrgnitOyvkcbyoz1601-07-23 20:56:95608Vhnsmuro KdkiydsUtywyjrlg5856-91-77 20:56:0010.7[facility] EfmqdipNmpnkeksa5284-55-67 20:56:50223Eewyrpav ErrvncdSxugskhfu3931-78-07 20:56:18505Zreoxuzi [place] Qdibintzz4985-95-51 20:56:0010.7[facility] HptgplePisccewru6304-39-62 20:56:38410 [facility] NigvlklQmlfmugyo6168-70-29 20:56:85967Aerwismx HermannChemistry 2014-05-04 20:56:0050[facility] WgeyghjCujprraas2460-91-48 20:56:0085[facility] VrgrbgdHmhmqozfj8447-17-63 20:56:16011 MEQ/LMemorial TgjlborEjdvsescy3997-94-93 20:56:004.3 MEQ/LMemorial JxcuanvBlvisrypd6728-21-64 20:56:000.9[facility] Anmxebwsh6821-17-07 20:56:0013[facility] WnzvksuFnkpezhxw8540-59-45 20:56:00* Test Item Value Reference Range Interpretation Comments BUN/CREAT (test code = BUN/CREAT) 14 1 6-25 [facility] YwznonjZtbpgroyi2753-09-63 20:56:003.6[facility]annChem[facility] 2014-05-04 20:56:009.1[facility] XmpfzbnKwjwochcu3775-15-50 20:56:0062[facility] JfpagpjBcglwbczl2856-58-59 20:56:0059[facility] IpbccucOrpxxkauz6587-67-67 20:56:55866Jothlhto YvfqclbCwatyhqvq1517-89-02 20:56:002.820[facility] Wqcsdvtiaf7639-42-12 20:56:0014.5[facility] FfgdsaaKybobntjup1585-87-17 20:56:00 43.6[facility] EylxgssVuhyoaszhr0511-26-91 20:56:67408 K/CMMMbritany Mccallum
--- OUTSIDE RECORDS SUMMARY | 2020-08-07 03:47 | XMS REPORT | Continuity of Care Document ---
Author Author Bianka Kognitio Mendoza PHIL L Organization [email or web address] Address Unknown Phone Unavailable Care Team Providers Care Cleaning Attendant Name Role Phone [email or web address] Unavailable Un available Problems Problem Status Onset Date Classification Date Reported Comments Source E78.5 E11.65 E03.9 K74.60 V Active 03/19/2018 [facility] E78.5 E11.65 E03.9 K74.60 A ctive 01/26/2018 [facility] Unspecified cirrhosis of liver 10/18/2017 01/22/2018 [facility] LIVER CIRRHOSIS Active 10/13/2017 [facility] M25.562 - PAIN IN LEFT KNEE Ac tive 05/29/2017 [facility] Screening mammography (procedure) Active 04/24/2015 Problem 08/13/2019 Data migrated from [employer] on 05/20. [facility], [facility] [place],[facility] Candidiasis of mouth (disorder) Active 03/22/2015 Problem 08/13/2019 Data migrated from [employer] on . [facility] [place], [place],[facility] HYPERTRIGLYCERIDEMIA Active 02/06/2015 Condition 02/06/2015 [facility] HELICOBACTER PYLORI GASTRITIS Active 02/06/2015 Condition 02/06/2015 [facility] Helicobacter-associated gastritis (disorder) Active 02/06/2015 Problem 08/13/2019 Data migrated from [employer] on 04/05/15. Data migrated from [employer] on 04/05/15. [facility] [place], [place],[facility] Hypertriglyceridemia (disorder) Active 02/06/2015 Problem 08/13/2019 Data migrated from [employer] on . Data migrated from [employer] on 04/05/15. [facility], [facility] [place], [place],[facility] ABDOMINAL PAIN, EPIGASTRIC Act leeroy 11/28/2014 Condition 02/06/2015 [facility] Epigastric pain (finding) Acti ve 11/28/2014 Problem 08/13/2019 Data migrated from [employer] on . Data migrated from [employer] on 04/05/15. [facility] [place], [place],[facility] DYSLIPIDEMIA Active 08/17/2014 Condition 02/06/2015 [facility] Dyslipidemia (disorder) Active 08/17/2014 Problem 03/23/2018 Data migrated from [employer] on . [facility] [place], [place],[facility] DIABETES MELLITUS, TYPE II, UNCONTROLLED Active 08/15/2014 Condition 02/06/2015 [facility] Type II diabetes mellitus uncontrolled (finding) Active 08/15/2014 Problem 03/23/2018 Data migrated from [employer] on 02/28/15. [facility], [facility] [place], [place],[facility] OBESITY NOS Active 05/26/2014 Condition 02/06/2015 [facility] Obesity (disorder) Active 05/26/2014 Problem 08/13/2019 Data migrated from [employer] on . [facility], [facility] [place], [place],[facility] DIABETES MELLITUS, TYPE II Act leeroy 05/04/2014 Condition 02/06/2015 [facility] HYPERTENSION, BENIGN ESSENTIAL Active 05/04/2014 Condition 02/06/2015 [facility] FIBROMYALGIA Active 05/04/2014 Condition 02/06/2015 [facility] DERMATOPHYTOSIS, BODY Active 05/04/2014 Condition 02/06/2015 [facility] SEBORRHEIC DERMATITIS Active 05/04/2014 Condition 02/06/2015 [facility] ALLERGIC RHINITIS Active 05/04/2014 Condition 02/06/2015 [facility] ASTHMA Active 05/04/2014 Condition 02/06/2015 [facility] Allergic rhinitis (disorder) A ctive 05/04/2014 Problem 08/13/2019 Data migrated from [employer] on . [facility] [place], [place],[facility] Asthma (disorder) Active 05/04/2014 Problem 08/13/2019 Data migrated from [employer] on . [facility], [facility] [place], [place],[facility] Benign essential hypertension (disorder) Active 05/04/2014 Problem 08/13/2019 Data migrated from [employer] on 02/28/15. [facility], [facility] [place], [place],[facility] Dermatophytosis of the body (disorder) Active 05/04/2014 Problem 08/13/2019 Data migrated from [employer] on . [facility], [facility] [place], [place],[facility] Fibromyositis (disorder) Active 05/04/2014 Problem 08/13/2019 Data migrated from [employer] on . [facility], [facility] [place],[facility] Seborrheic dermatitis (disorder) Active 05/04/2014 Problem 08/13/2019 Data migrated from [employer] on . [facility], [facility] [place],[facility] Diabetes mellitus type 2 (disorder) Active 05/04/2014 Problem 03/23/2018 Data migrated from [employer] on . [facility], [facility] [place], [place],[facility] NECKA PAIN AND LEFT KNEE PAIN Active 04/29/2008 [facility] Dyslipidemia associated with type II ollie betes mellitus (disorder) Active Prob drake 08/13/2019 [facility] Hyperglycemia due to type 2 diabetes jo litus (disorder) Active Prob drake 08/13/2019 [facility] Hyperlipidemia (disorder) Acti ve Problem [facility], ZHENG [place], [place] Morbid obesity (disorder) Acti ve Problem [facility], OPID [place], [place],[facility] Diabetes mellitus (disorder) A ctive Problem [facility] Morbid (severe) obesity due to excess calories 01/22/2018 [facility] Essential (primary) hypertension 01/22/2018 [facility] Type 2 diabetes mellitus without complications 01/22/2018 [facility] Pure hypercholesterolemia, unspecified 01/22/2018 [facility] Hypothyroidism, unspecified 01/22/2018 [facility] Acquired absence of other specified part s of digestive tract 01/22/2018 [facility] Medications Medication Details Route Status Patient Instructions Ordering Provider Order Date Source gabapentin 300 MG Oral Capsule 300 mg = 1 cap, PO, BID, # 180 cap, 1 Refill(s), Pharmacy: [facility] Active 08/10/2019 [facility] Triamcinolone Acetonide 1 MG/ML Topical Cream 1 appl, TOP, BID, Apply to affected area(s), X 14 day, # 60 gm, 0 Refill(s), Pharmacy: [facility] Active 08/10/2019 [facility] gabapentin 300 MG Oral Capsule 300 mg = 1 cap, PO, TID, # 90 cap, 0 Refill(s) Inactive 08/10/2019 [facility] valsartan 320 mg oral tablet 3 20 mg = 1 tab, PO, Daily, # 90 tab, 1 Refill(s), Pharmacy: [facility] Active 08/10/2019 [facility] simvastatin 10 mg oral tablet = 1 tab, PO, Bedtime, # 90 tab, 1 Refill(s), Pharmacy: [facility] Active 08/10/2019 [facility] pantoprazole 40 MG Enteric Coated Tablet [Protonix] 40 mg = 1 tab, PO, Daily, # 90 tab, 1 Refill(s), Pharmacy: [facility] Active 08/10/2019 [facility] levothyroxine 25 mcg (0.025 mg) oral tablet = 1 tab, PO, Daily, # 90 tab, 1 Refill(s), Pharmacy: [facility] Active 08/10/2019 [facility] 3 ML insulin degludec 200 UNT/ML Pen Injector [Tresiba ] 54 unit, SUB-Q, Daily, # 12 pen(s), 1 Refill(s), Pharmacy: [facility] Active 08/10/2019 [facility] 3 ML Insulin, Aspart, Human 100 UNT/ML P en Injector [NovoLog] See Instructions, SUB-Q TID-Before Meals following sliding scale BS 150- 199 3 units BS 200-249 6 units BS 250-299 9 units BS 300-349 12 units BS more than 350 15 units, # 15 mL, 1 Refill(s) Active 08/10/2019 [facility] Hydrochlorothiazide 25 MG Oral Tablet 25 mg = 1 tab, PO, Daily, # 90 tab, 0 Refill(s), Pharmacy: [facility] Active 08/10/2019 [facility] duloxetine 30 MG Enteric Coated Capsule [Cymbalta] 30 mg = 1 cap, PO, Daily, # 90 cap, 1 Refill(s), Pharmacy: [facility] Active 08/10/2019 [facility] 0.5 ML dulaglutide 1.5 MG/ML Prefilled S yringe [Trulicity] 0.75 mg, SUB-Q, qWeek, # 4 ea, 5 Refill( s), Pharmacy: [facility] Active 08/10/2019 [facility] 24 HR dapagliflozin 5 MG / Metformin hyd rochloride 1000 MG Extended Release Oral Tablet [Xigduo] 2 tab, PO, QAM, # 180 tab, 1 Refill(s), Pharmacy: [facility] Active 08/10/2019 [facility] amLODIPine 10 mg oral tablet 1 0 mg = 1 tab, PO, Daily, # 90 tab, 1 Refill(s), Pharmacy: [facility] Active 08/10/2019 [facility] Ventolin HFA 90 mcg/inh inhalation aerosol with adapte r 2 puff, INHALATION, QID, # 1 ea, 2 Refill(s), Pharmacy: [facility] Active 08/10/2019 [facility] duloxetine 30 MG Enteric Coated Capsule [Cymbalta] 30 mg = 1 cap, PO, Daily, # 90 cap, 0 Refill(s), Pharmacy: [facility] Active 06/14/2019 [facility] Ergocalciferol 67328 UNT Oral Capsule 50,000 IntlUnit = 1 cap, PO, qWeek, # 12 cap, 0 Refill(s), Pharmacy: [facility] Active 05/14/2019 [facility] 3 ML insulin degludec 200 UNT/ML Pen Injector [Tresiba ] 50 unit, SUB-Q, Daily, # 12 pen(s), 1 Refill(s), other Active 05/14/2019 [facility] 3 ML Insulin, Aspart, Human 100 UNT/ML P en Injector [NovoLog] See Instructions, SUB-Q TID-Before Meals following sliding scale BS 150- 199 3 units BS 200-249 6 units BS 250-299 9 units BS 300-349 12 units BS more than 350 15 units, # 15 mL, 0 Refill(s) Active 05/14/2019 [facility] 0.5 ML dulaglutide 1.5 MG/ML Prefilled S yringe [Trulicity] 0.75 mg, SUB-Q, qWeek, # 4 ea, 2 Refill( s), Pharmacy: [facility] Active 05/14/2019 [facility] amLODIPine 10 mg oral tablet 1 0 mg = 1 tab, PO, Daily, # 90 tab, 0 Refill(s), Pharmacy: [facility] Active 05/11/2019 [facility] Hydrochlorothiazide 25 MG Oral Tablet 25 mg = 1 tab, PO, Daily, # 90 tab, 0 Refill(s), Pharmacy: [facility] Active 05/11/2019 [facility] valsartan 320 mg oral tablet 3 20 mg = 1 tab, PO, Daily, # 90 tab, 0 Refill(s), Pharmacy: [facility] Active 05/11/2019 [facility] Nystatin [id number] UNT/ML Oral Suspension 400,000 unit = 4 mL, S&SPIT, QID, place 2 mL in each cheek pouch, # 120 mL, 1 Refill(s), Pharmacy: [facility] Active 04/29/2019 [facility] Fluconazole 150 MG Oral Tablet [Diflucan] 150 mg = 1 tab, PO, ONCE, # 1 tab, 1 Refill(s), Pharmacy: [facility] Active 04/29/2019 [facility] simvastatin 10 mg oral tablet = 1 tab, PO, Bedtime, # 90 tab, 0 Refill(s), Pharmacy: [facility] Active 04/29/2019 [facility] pantoprazole 40 MG Enteric Coated Tablet [Protonix] 40 mg = 1 tab, PO, Daily, # 90 tab, 1 Refill(s), Pharmacy: [facility] Active 04/29/2019 [facility] meloxicam 15 mg oral tablet 15 mg = 1 tab, PO, Daily, # 90 tab, 1 Refill(s), Pharmacy: [facility] Active 04/29/2019 [facility] levothyroxine 25 mcg (0.025 mg) oral tablet = 1 tab, PO, Daily, # 90 tab, 0 Refill(s), Pharmacy: [facility] Active 04/29/2019 [facility] 3 ML Insulin Lispro 200 UNT/ML Pen Injector [Humalog] 400, # 3 mL, 2 Refill(s), Pharmacy: [facility] Active 04/29/2019 [facility] 3 ML insulin degludec 200 UNT/ML Pen Injector [Tresiba ] 62 unit, SUB-Q, Daily, # 12 pen(s), 1 Refill(s), Pharmacy: [facility] Active 04/29/2019 [facility] 0.65 ML exenatide 3.08 MG/ML Prefilled S yringe [Bydureon] 2 mg, SUB-Q, qWeek, # 12 ea, 3 Refill(s) , Pharmacy: [facility], give bydureon bcise Active 04/29/2019 [facility] 24 HR dapagliflozin 5 MG / Metformin hyd rochloride 1000 MG Extended Release Oral Tablet [Xigduo] 2 tab, PO, QAM, # 180 tab, 0 Refill(s), Pharmacy: [facility] Active 04/29/2019 [facility] Symbicort 160/4.5 inhalation aerosol with adapter See Instructions, INHALE TWO PUFFS BY MOUTH TWICE DAILY, # 3 ea, 3 Refill(s), Pharmacy: [facility] Active 04/29/2019 [facility] Amlodipine 10 MG / Hydrochlorothiazide 2 5 MG / valsartan 320 MG Oral Tablet 1 tab, PO, Daily, # 90 tab, 0 Refill(s), Pharmacy: [facility] Active 04/29/2019 [facility] duloxetine 30 MG Enteric Coated Capsule [Cymbalta] 30 mg = 1 cap, PO, Daily, # 30 cap, 0 Refill(s), Pharmacy: [place] [address] Active 04/29/2019 [facility] FreeStyle shawn sensors FreeSt yle shawn sensors, See Instructions, Use as diected for glucose monitoring, # 3 ea, Refill(s) 11, Pharmacy: [place] [address] Active 08/25/2018 [facility] FreeStyle shawn reader FreeSty le shawn reader, See Instructions, Use as directed for glucose monitoring, # 1 ea, Refill(s) 11, Pharmacy: [place] [address] Active 08/25/2018 [facility] Albuterol 0.83 MG/ML Inhalant Solution 2.49 mg = 3 mL, INHALATION, Q4H, PRN wheezing, coughing, or shortness of breath, # 120 ea, 1 Refill(s), Pharmacy: [place] [address] Active 07/13/2018 [facility] Azithromycin 5 Day Dose Pack 250 mg oral tablet See Instructions, Take 2 tablets by mouth the first day then 1 tablet by mouth days 2-5., X 5 day, # 6 tab, 0 Refill(s), Pharmacy: [place] [address] No Longer Active 07/13/2018 [facility] 3 ML insulin degludec 200 UNT/ML Pen Injector [Tresiba ] 62 unit, SUB-Q, Daily, # 12 pen(s), 1 Refill(s), Pharmacy: [place] [address] Active 07/13/2018 [facility] Nystatin [id number] UNT/ML Oral Suspension 400,000 unit = 4 mL, S&SPIT, QID, place 2 mL in each cheek pouch, # 120 mL, 1 Refill(s), Pharmacy: [place] [address] Active 07/13/2018 [facility] pregabalin 50 MG Oral Capsule [Lyrica] 50 mg = 1 cap, PO, BID, # 60 cap, 2 Refill(s) Active 07/13/2018 [facility] 3 ML Insulin Lispro 200 UNT/ML Pen Injector [Humalog] 400, # 3 mL, 2 Refill(s), Pharmacy: [place] [address] Active 07/13/2018 [facility] simvastatin 10 mg oral tablet See Instructions, TAKE ONE TABLET BY MOUTH AT BEDTIME, # 90 tab, 1 Refill(s), Pharmacy: [place] [address] Active 04/13/2018 [facility] pantoprazole 40 MG Enteric Coated Tablet [Protonix] 40 mg = 1 tab, PO, Daily, # 90 tab, 1 Refill(s), Pharmacy: [facility] Active 04/13/2018 [facility] meloxicam 15 mg oral tablet 15 mg = 1 tab, PO, Daily, # 90 tab, 1 Refill(s), Pharmacy: [facility] Active 04/13/2018 [facility] levothyroxine 25 mcg (0.025 mg) oral tablet 25 microgram = 1 tab, PO, Daily, # 90 tab, 1 Refill(s), Pharmacy: [facility] Active 04/13/2018 [facility] 3 ML insulin degludec 200 UNT/ML Pen Injector [Tresiba ] 56 unit, SUB-Q, Daily, # 12 pen(s), 1 Refill(s), Pharmacy: [facility] No Longer Active 04/13/2018 [facility] 0.65 ML exenatide 3.08 MG/ML Prefilled S yringe [Bydureon] 2 mg, SUB-Q, qWeek, # 12 ea, 3 Refill(s) , Pharmacy: [facility], give bydureon bcise Active 04/13/2018 [facility] NovoFine Plus Insulin Pen [place] 32G 4mm=5/32 inch 1 ea, MISC, Daily, # 100 ea, 3 Refill(s) Active 04/13/2018 [facility] 24 HR dapagliflozin 5 MG / Metformin hyd rochloride 1000 MG Extended Release Oral Tablet [Xigduo] 2 tab, PO, QAM, # 180 tab, 1 Refill(s), Pharmacy: [facility] Active 04/13/2018 [facility] Symbicort 160/4.5 inhalation aerosol with adapter See Instructions, INHALE TWO PUFFS BY MOUTH TWICE DAILY, # 3 ea, 3 Refill(s), Pharmacy: [facility] Active 04/13/2018 [facility] Amlodipine 10 MG / Hydrochlorothiazide 2 5 MG / valsartan 320 MG Oral Tablet 1 tab, PO, Daily, # 90 tab, 1 Refill(s), Pharmacy: [facility] Active 04/13/2018 [facility] Ventolin HFA 90 mcg/inh inhalation aerosol with adapte r 2 puff, INHALATION, QID, # 1 ea, 2 Refill(s), Pharmacy: [facility] Active 04/13/2018 [facility] levothyroxine 25 mcg (0.025 mg) oral tablet 25 microgram = 1 tab, PO, Daily, # 90 tab, 1 Refill(s), Pharmacy: [facility] Active 01/14/2018 [facility] Triamcinolone Acetonide 0.001 MG/MG Topical Ointment 1 appl, TOP, TID, # 60 gm, 0 Refill(s), Pharmacy: [facility] Active 01/12/2018 [facility] Nystatin 100 UNT/MG Topical Ointment 1 appl, TOP, TID, # 30 gm, 0 Refill(s), Pharmacy: [facility] Active 01/12/2018 [facility] meloxicam 15 mg oral tablet 15 mg = 1 tab, PO, Daily, # 90 tab, 1 Refill(s), Pharmacy: [facility] Active 01/12/2018 [facility] gabapentin 300 MG Oral Capsule 300 mg = 1 cap, PO, TID, # 90 cap, 2 Refill(s), Pharmacy: [facility] Active 01/12/2018 [facility] 24 HR dapagliflozin 5 MG / Metformin hyd rochloride 1000 MG Extended Release Oral Tablet [Xigduo] 2 tab, PO, QAM, # 180 tab, 1 Refill(s), Pharmacy: [facility] Active 01/12/2018 [facility] 3 ML insulin degludec 200 UNT/ML Pen Injector [Tresiba ] 56 unit, SUB-Q, Daily, # 12 pen(s), 1 Refill(s), Pharmacy: [facility] Active 01/12/2018 [facility] pantoprazole 40 MG Enteric Coated Tablet [Protonix] 40 mg = 1 tab, PO, Daily, # 90 tab, 1 Refill(s), Pharmacy: [facility] Active 01/12/2018 [facility] NovoFine Plus Insulin Pen [place] 32G 4mm=5/32 inch 1 ea, MISC, Daily, # 100 ea, 3 Refill(s) Active 01/12/2018 [facility] 0.65 ML exenatide 3.08 MG/ML Prefilled S yringe [Bydureon] 2 mg, SUB-Q, qWeek, # 12 ea, 3 Refill(s) , Pharmacy: [facility], give bydureon bcise Active 01/12/2018 [facility] simvastatin 10 mg oral tablet See Instructions, # 90 tab, TAKE ONE TABLET BY MOUTH AT BEDTIME, Pharmacy: [facility] Active 01/12/2018 [facility] Tramadol 50 mg, Route: PO, Capo g form: TAB, Q6H, Dosing Weight 131.818, kg, PRN Pain Score 4-6, Start date: 10/16/17 10:16:00 MANAGER INTEGRATED, Duration: 30 day, Stop date: 11/15/17 10:15:00 MANAGER INTEGRATED No Longer Active 10/16/2017 [facility] Ondansetron 4 mg, Route: IVP, Q8H, Dosing Weight 131.818, kg, PRN Nausea & Vomiting, Start date: 10/16/17 10:16:00 MANAGER INTEGRATED, Duration: 30 day, Stop date: 11/15/17 10:15:00 MANAGER INTEGRATED No Longer Active 10/16/2017 [facility] pregabalin 50 MG Oral Capsule [Lyrica] 50 mg = 1 cap, PO, Daily, 0 Refill(s) No Longer Active 10/16/2017 [facility] latanoprost 0.05 MG/ML Ophthalmic Solution 1 drp, Each Affected Eye, Bedtime, # 1 btl, 1 Refill(s) Active 10/16/2017 [facility] levofloxacin 750 mg oral tablet 0 Refill(s) No Longer Active 10/14/2017 [facility] nitazoxanide 500 MG Oral Tablet [Alinia] 0 Refill(s) No Longer Active 10/14/2017 [facility] Atropine Sulfate 0.0194 MG / Hyoscyamine Sulfate 0.104 MG / Phenobarbital 16.2 MG / Scopolamine Hydrobromide 0.0065 MG Oral Tablet [] 0 Refill(s) No Longer Active 10/14/2017 [facility] omeprazole 40 mg oral delayed release capsule 0 Refill(s) No Longer Active 10/14/2017 [facility] doxycycline hyclate 100 MG Oral Tablet 0 Refill(s) No Longer Active 10/14/2017 [facility] linaclotide 0.145 MG Oral Capsule [Linzess] 145 microgram = 1 cap, PO, Daily, 30 minutes prior to the first meal of the day, # 8 cap, 0 Refill(s), given to patient No Longer Active 10/13/2017 [facility] Ondansetron 4 MG Oral Tablet [Zofran] 4 mg = 1 tab, PO, Q6H, PRN Nausea/Vomiting, # 30 tab, 0 Refill(s), Pharmacy: [facility] Active 10/13/2017 [facility] simvastatin 10 mg oral tablet 10 mg = 1 tab, PO, Bedtime, # 90 tab, 0 Refill(s), Pharmacy: [facility] No Longer Active 10/13/2017 [facility] levothyroxine 25 mcg (0.025 mg) oral tablet 25 microgram = 1 tab, PO, Daily, # 90 tab, 0 Refill(s), Pharmacy: [place] [address] Active 09/19/2017 [facility] Triamcinolone Acetonide 0.001 MG/MG Topical Ointment 1 appl, TOP, TID, # 60 gm, 0 Refill(s), Pharmacy: [facility] Active 09/10/2017 [facility] Nystatin 100 UNT/MG Topical Ointment 1 appl, TOP, TID, # 30 gm, 0 Refill(s), Pharmacy: [facility] Active 09/10/2017 [facility] pantoprazole 40 MG Enteric Coated Tablet [Protonix] 40 mg = 1 tab, PO, Daily, # 90 tab, 0 Refill(s), Pharmacy: [facility] Active 09/10/2017 [facility] 3 ML insulin degludec 100 UNT/ML Pen Injector [Tresiba ] 50 unit, SUB-Q, Daily, # 45 mL, 1 Refill(s), Pharmacy: [facility] Active 09/10/2017 [facility] 24 HR dapagliflozin 5 MG / Metformin hyd rochloride 1000 MG Extended Release Oral Tablet [Xigduo] 2 tab, PO, QAM, # 180 tab, 1 Refill(s), Pharmacy: [place] [address] Active 09/10/2017 [facility] Symbicort 160/4.5 inhalation aerosol with adapter See Instructions, INHALE TWO PUFFS BY MOUTH TWICE DAILY, # 3 ea, 3 Refill(s), Pharmacy: [facility] Active 09/10/2017 [facility] Amlodipine 10 MG / Hydrochlorothiazide 2 5 MG / valsartan 320 MG Oral Tablet 1 tab, PO, Daily, # 90 tab, 1 Refill(s), Pharmacy: [facility] Active 09/10/2017 [facility] Ventolin HFA 90 mcg/inh inhalation aerosol with adapte r 2 puff, INHALATION, QID, # 1 ea, 2 Refill(s), Pharmacy: [facility] Active 09/10/2017 [facility] meloxicam 15 mg oral tablet 15 mg = 1 tab, PO, Daily, # 90 tab, 1 Refill(s), Pharmacy: [facility] Active 09/10/2017 [facility] gabapentin 300 MG Oral Capsule 300 mg = 1 cap, PO, TID, # 90 cap, 0 Refill(s), Pharmacy: [facility] Active 09/10/2017 [facility] OMEPRAZOLE 40 MG CPDR Take one capsule by mouth twice daily for 2 weeks No Longer Active 12/01/2014 [facility] BISMATROL MAXIMUM STRENGTH 525 MG/15ML SUSP 15 ml po every 6 hours (4 times daily) for 2 weeks No Longer Active 12/01/2014 [facility] METRONIDAZOLE 500 MG TABS 1 ta blet po every 6 hours for next 2 weeks No Longer Active 12/01/2014 [facility] CLARITHROMYCIN 500 MG TABS 1 t ablet po every 8 hours for 14 days No Longer Active 12/01/2014 [facility] [facility] TETRACYCLINE HCL 500 MG CAPS O ne tab po every 6 hours for 2 weeks Active 12/01/2014 [facility] CARAFATE 1 GM TABS 1 tablet fo ur times a day with meals Active 11/28/2014 [facility] PANTOPRAZOLE SODIUM 40 MG TBEC 1 tablet daily No Longer Active 11/28/2014 [facility] SIMVASTATIN 20 MG TABS 1 table t at night No Longer Active 08/17/2014 [facility] JENTADUETO 2.5-1000 MG TABS 1 tab twice daily with meals Active 08/15/2014 [facility] GABAPENTIN 300 MG CAPS 1 capsu le three times a day Active 08/15/2014 [facility] VALSARTAN-HYDROCHLOROTHIAZIDE 160-12.5 MG TABS 1 tab by mouth daily Active 08/15/2014 [facility] AMLODIPINE BESYLATE 5 MG TABS 1 tablet daily Active 08/15/2014 [facility] GLIPIZIDE 10 MG TABS 1 tablet twice daily Active 08/15/2014 [facility] AMLODIPINE BESYLATE 5 MG TABS 1 tablet daily Active 08/15/2014 [facility] METFORMIN HCL ER 500 MG [id number] 4 orally daily Active 07/07/2014 [facility] LYRICA 75 MG CAPS Active 07/07/2014 [facility] VENTOLIN HFA 108 (90 BASE) MCG/ACT AERS 2 puffs every 4- 6 hours as needed for cough wheeze Active 07/07/2014 [facility] SYMBICORT 160-4.5 MCG/ACT AERO 2 puffs twice daily Active 07/07/2014 [facility] JARDIANCE 25 MG TABS one orall y daily No Longer Active 07/07/2014 [facility] EXFORGE HCT 5-160-12.5 MG TABS one tablet daily No Longer Active 07/07/2014 [facility] METFORMIN HCL ER 500 MG [id number] 4 orally daily No Longer Active 07/07/2014 [facility] VENTOLIN HFA 108 (90 BASE) MCG/ACT AERS 2 puffs every 4- 6 hours as needed for cough wheeze Active 07/07/2014 [facility] LYRICA 75 MG CAPS No Longer Active 07/07/2014 [facility] JANUMET 50-1000 MG TABS one ta blet orally twice daily Active 05/11/2014 [facility] JANUMET XR 50-1000 MG [id number] one tablet twice daily No Longer Active 05/11/2014 [facility] EXFORGE HCT 5-160-12.5 MG TABS one tablet daily No Longer Active 05/04/2014 [facility] METFORMIN HCL ER 500 MG [id number] Two tablets daily No Longer Active 05/04/2014 [facility] GLIPIZIDE 10 MG TABS one table t daily No Longer Active 05/04/2014 [facility] LYRICA 50 MG CAPS one tablet t wice a day Active 05/04/2014 [facility] VENTOLIN HFA 108 (90 BASE) MCG/ACT AERS 2 puffs four times daily as needed for cough/wheeze Active 05/04/2014 [facility] SYMBICORT 160-4.5 MCG/ACT AERO 2 puffs twice daily No Longer Active 05/04/2014 [facility] NYSTATIN-TRIAMCINOLONE CREA us e daily for rash area Active 05/04/2014 [facility] LOTRISONE 1-0.05 % CREA Apply to affected areas twice a day for 10 days No Longer Active 05/04/2014 [facility] NIZORAL 2 % SHAM apply twice w eekly No Longer Active 05/04/2014 [facility] FLONASE 50 MCG/ACT SUSP Two sp rays each nostril at night No Longer Active 05/04/2014 [facility] ZYRTEC ALLERGY 10 MG CAPS Take one capsule by mouth at night No Longer Active 05/04/2014 [facility] ADVANCED AM/PM MISC two tablet s twice daily as directed No Longer Active 05/04/2014 [facility] LYRICA 50 MG CAPS one tablet t wice a day Active 05/04/2014 [facility] GLIPIZIDE 10 MG TABS one table t daily No Longer Active 05/04/2014 [facility] LYRICA 50 MG CAPS one tablet t wice a day No Longer Active 05/04/2014 [facility] VENTOLIN HFA 108 (90 BASE) MCG/ACT AERS 2 puffs four times daily as needed for cough/wheeze No Longer Active 05/04/2014 [facility] GLIPIZIDE 10 MG TABS one table t daily No Longer Active 05/04/2014 [facility] LYRICA 50 MG CAPS one tablet t wice a day No Longer Active 05/04/2014 [facility] VENTOLIN HFA 108 (90 BASE) MCG/ACT AERS 2 puffs four times daily as needed for cough/wheeze No Longer Active 05/04/2014 [facility] METFORMIN HCL ER 500 MG [id number] Two tablets daily No Longer Active 05/04/2014 [facility] Allergies, Adverse Reactions, Alerts Substance Category Reaction Severity Reaction type Status Date Reported Comments Source PENICILLIN Drug allergy PENICILLIN 05/04/2014 [facility] penicillins<sup>1</sup> Assert ion Drug aller gy Active 05/04/2014 Data migrated from [employer] for [employer] on 04/27/15. Originally documented as PENICILLIN. [facility] Iodine Mild<sup>2</sup> Assert ion Drug aller gy Active Pt a llergy test shows iodine. Pt has had st studies with no reaction [facility] Immunizations Immunization Date Given Site Status Last Updated Comments Source hepatitis B adult vaccine 03/29 Left Deltoid completed [facility] hepatitis A adult vaccine 03/29 Left Deltoid completed [facility] hepatitis B adult vaccine 09/29 Left deltoid completed [facility], [facility] [place],[facility] hepatitis A adult vaccine 08/29 Left Deltoid completed [facility], [facility] [place],[facility] hepatitis B adult vaccine 08/29 Left Deltoid completed [facility], [facility] [place],[facility] influenza virus vaccine, inactivated 07/28/2017 completed [facility], [facility] [place],[facility] influenza virus vaccine, inactivated 06/04/2016 Left Deltoid completed [facility] pneumococcal immunization administered 08/15/2014 completed [facility] pneumococcal 23-valent vaccine<sup>1</sup> 08/15/2014 Left Deltoid completed Result Comment: pneumovax 2 3 [[id number]]. Migrated from OBS VIS: Pneumovax 23: 07-04-09 ; Data migrated from [employer] for [employer] on 05/05/2015. [facility] [place],[facility] Results Order Name Results Value Reference Range Date Interpretation Comments Source CHEM PANEL Alk Phos 121 33 - 130 09/10/2017 [facility] CHEM PANEL ASPARTATE TRANSAMINASE 27 10 - 35 09/10/2017 [facility] CHEM PANEL ALANINE AMINOTRANSFERASE 30 6 - 29 09/10/2017 [facility] CHEM PANEL Potassium Lvl 4.3 3.5 - 5.3 09/10/2017 [facility] CHEM PANEL B/C Ratio NOT A PPLICABLE 6 - 22 09/10/2017 [facility] CHEM PANEL Sodium Lvl 138 135 - 146 09/10/2017 [facility] CHEM PANEL Chloride Lvl 101 98 - 110 09/10/2017 [facility] CHEM PANEL CO2 28 20 - 31 09/10/2017 [facility] CHEM PANEL Calcium Lvl 10.0 8.6 - 10.4 09/10/2017 [facility] CHEM PANEL Creatinine Lvl 0.83 0.50 - 1.05 09/10/2017 Result Comment: For patients >49 years o f age, the reference limit
for Creatinine is approximately 13% higher for people
identified as -Greek. [facility] CHEM PANEL Glucose Lvl 212 65 - 99 09/10/2017 Result Comment:
Fasting reference interval

For someone without known diabetes, a glucose
value >125 mg/dL indicates that they may have
diabetes and this should be confirmed with a
follow-up test.

Lab test performed by:
[facility]
[address]
[place] [address]
Tamika Burns MD [facility] CHEM PANEL eGFR NON-AFR. NAMIBIAN 77 > OR = 60 mL/min/1.73m2 2016 [facility] CHEM PANEL BUN 23 7 - 25 09/10/2017 [facility] CHEM PANEL eGFR 89 > OR = 60 mL/min/1.73m2 2016 [facility] CHEM PANEL Globulin 3.4 1.9 - 3.7 09/10/2017 [facility] CHEM PANEL Albumin Lvl 3.8 3.6 - 5.1 09/10/2017 [facility] CHEM PANEL Total Protein 7.2 6.1 - 8.1 09/10/2017 [facility] CHEM PANEL Bili Total 0.5 0.2 - 1.2 09/10/2017 [facility] CHEM PANEL A/G Ratio 1.1 1.0 - 2.5 09/10/2017 [facility] HEMATOLOGY Segs 62.9 09/10/2017 [facility] HEMATOLOGY Monocytes 6.3 09/10/2017 [facility] HEMATOLOGY Lymphocytes 26.3 09/10/2017 [facility] HEMATOLOGY Eosinophils 3.8 09/10/2017 [facility] HEMATOLOGY Basophils 0.7 09/10/2017 [facility] HEMATOLOGY MCV 89.9 80.0 - 100.0 09/10/2017 [facility] HEMATOLOGY MCHC 33.1 32.0 - 36.0 09/10/2017 [facility] HEMATOLOGY MCH 29.8 27.0 - 33.0 09/10/2017 [facility] HEMATOLOGY RDW 12.7 11.0 - 15.0 09/10/2017 [facility] HEMATOLOGY Platelet 172 140 - 400 09/10/2017 [facility] HEMATOLOGY MPV 11.4 7.5 - 12.5 09/10/2017 [facility] HEMATOLOGY RBC X 10x6 4.67 3.80 - 5.10 09/10/2017 [facility] HEMATOLOGY Hgb 13.9 11.7 - 15.5 09/10/2017 [facility] HEMATOLOGY Hct 42.0 35.0 - 45.0 09/10/2017 [facility] HEMATOLOGY Monocytes # 517 200 - 950 09/10/2017 [facility] HEMATOLOGY Lymphocytes # 2157 850 - 3900 09/10/2017 [facility] HEMATOLOGY Segs-Bands # 5158 1500 - 7800 09/10/2017 [facility] HEMATOLOGY Basophils # 57 0 - 200 09/10/2017 [facility] HEMATOLOGY Eosinophils # 312 15 - 500 09/10/2017 [facility] HEMATOLOGY WBC X 10x3 8.2 3.8 - 10.8 09/10/2017 Result Comment:
Lab test perf ormed by:
[facility]
[address] [place] [address]
[place] [address]
Tamika Burns MD [facility] LIPIDS Non HDL Chol 153 <130 mg/dL 09/10/2017 Result Comment: For patients with diabet es plus 1 major ASCVD risk
factor, treating to a non-HDL-C goal of <100 mg/dL
(LDL-C of <70 mg/dL) is considered a therapeutic
option. [facility] LIPIDS CHD Risk 4.0 <5.0 (CALC) 09/10/2017 [facility] LIPIDS Chol 204 <200 mg/dL 09/10/2017 Result Comment:
Lab test performed by:
[facility]
[address]
[place] [address]
Tamika Burns MD [facility] LIPIDS LDL (Calculated) 118 09/10/2017 Result Comment: Reference range: <100

Desirable range <100 mg/dL for patients with CHD or
diabetes and <70 mg/dL for diabetic patients with
known heart disease.

LDL-C is now calculated using the Eufemia
calculation, which is a validated novel method providing
better accuracy than the Friedewald equation in the
estimation of LDL- C.
Bal ORR et al. JACQUES. 2013;310(05): 2748-7471
(http://education.Sverve/faq/ZBM067) [facility] LIPIDS Trig 248 <150 mg/dL 09/10/2017 [facility] LIPIDS HDL 51 >50 mg/dL 09/10/2017 [facility] SPECIAL CHEMISTRY Hgb A1C 8.5 <5.7 % 09/10/2017 Result Comment: For someone without know n diabetes, a hemoglobin A1c
value of 6.5% or greater indicates that they may have
diabetes and this should be confirmed with a follow-up
test.

For someone with known diabetes, a value <7% indicates
that their diabetes is well controlled and a value
greater than or equal to 7% indicates suboptimal
control. A1c targets should be individualized based on
duration of diabetes, age, comorbid conditions, and
other considerations.

Currently, no consensus exists regarding use of
hemoglobin A1c for diagnosis of diabetes for children.

Lab test performed by:
[facility]
[address] [place] [address]
[place] [address]
Tamika Burns MD [facility] SPECIAL CHEMISTRY Segs 62.9 09/10/2017 [facility] SPECIAL CHEMISTRY Monocytes 6.3 09/10/2017 [facility] SPECIAL CHEMISTRY Lymphocytes 26.3 09/10/2017 [facility] SPECIAL CHEMISTRY Eosinophils 3.8 09/10/2017 [facility] SPECIAL CHEMISTRY Basophils 0.7 09/10/2017 [facility] SPECIAL CHEMISTRY MCV 89.9 80.0 - 100.0 09/10/2017 [facility] SPECIAL CHEMISTRY MCHC 33.1 32.0 - 36.0 09/10/2017 [facility] SPECIAL CHEMISTRY MCH 29.8 27.0 - 33.0 09/10/2017 [facility] SPECIAL CHEMISTRY RDW 12.7 11.0 - 15.0 09/10/2017 [facility] SPECIAL CHEMISTRY Platelet 172 140 - 400 09/10/2017 [facility] SPECIAL CHEMISTRY MPV 11.4 7.5 - 12.5 09/10/2017 [facility] SPECIAL CHEMISTRY RBC X 10x6 4.67 3.80 - 5.10 09/10/2017 [facility] SPECIAL CHEMISTRY Hgb 13.9 11.7 - 15.5 09/10/2017 [facility] SPECIAL CHEMISTRY Hct 42.0 35.0 - 45.0 09/10/2017 [facility] SPECIAL CHEMISTRY Monocytes # 517 200 - 950 09/10/2017 [facility] SPECIAL CHEMISTRY Lymphocytes # 7122 850 - 5320 09/10/2017 [facility] SPECIAL CHEMISTRY Segs-Bands # 9172 1500 - 8200 09/10/2017 [facility] SPECIAL CHEMISTRY Basophils # 57 0 - 200 09/10/2017 [facility] SPECIAL CHEMISTRY Eosinophils # 312 15 - 500 09/10/2017 [facility] SPECIAL CHEMISTRY Alk Phos 121 33 - 130 09/10/2017 [facility] SPECIAL CHEMISTRY U Microalb Comment SEE COMMENT 09/10/2017 Result Comment:
The ADA defines ab normalities in albumin
excretion as follows:

Category Result (mcg/mg creatinine)

Normal <30
Microalbuminuria 30-299
Clinical albuminuria > OR = 300

The ADA recommends that at least two of three
specimens collected within a 3-6 month period be
abnormal before considering a patient to be
within a diagnostic category. [facility] SPECIAL CHEMISTRY WBC X 10x3 8.2 3.8 - 10.8 09/10/2017 Result Comment:
Lab test perf ormed by:
[facility]
[address]
[place] [address]
Tamika Burns MD [facility] SPECIAL CHEMISTRY ASPARTATE TRANSAMI NASE 27 10 - 35 09/10/2017 [facility] SPECIAL CHEMISTRY ALANINE AMINOTRANS FERASE 30 6 - 29 09/10/2017 [facility] SPECIAL CHEMISTRY U Microalb 0.3 See Note: mg/dL 09/10/2017 Result Comment: Reference Range:

Reference Range
Not established

Lab test performed by:
[facility]
[address]
[place] [address]
Tamika Burns MD [facility] SPECIAL CHEMISTRY Potassium Lvl 4.3 3.5 - 5.3 09/10/2017 [facility] SPECIAL CHEMISTRY B/C Ratio NOT APPLICABLE 6 - 22 09/10/2017 [facility] SPECIAL CHEMISTRY Sodium Lvl 138 135 - 146 09/10/2017 [facility] SPECIAL CHEMISTRY Chloride Lvl 101 98 - 110 09/10/2017 [facility] SPECIAL CHEMISTRY CO2 28 20 - 31 09/10/2017 [facility] SPECIAL CHEMISTRY Calcium Lvl 10.0 8.6 - 10.4 09/10/2017 [facility] SPECIAL CHEMISTRY Creatinine Lvl 0.83 0.50 - 1.05 09/10/2017 Result Comment: For patients >49 years o f age, the reference limit
for Creatinine is approximately 13% higher for people
identified as -Greek. [facility] SPECIAL CHEMISTRY Glucose Lvl 212 65 - 99 09/10/2017 Result Comment:
Fasting reference interval

For someone without known diabetes, a glucose
value >125 mg/dL indicates that they may have
diabetes and this should be confirmed with a
follow-up test.

Lab test performed by:
[facility]
[address]
[place] [address]
Tamika Burns MD [facility] SPECIAL CHEMISTRY eGFR NON-AFR. AMER ICAN 77 > OR = 60 mL/min/1.73m2 2016 [facility] SPECIAL CHEMISTRY BUN 23 7 - 25 09/10/2017 [facility] SPECIAL CHEMISTRY eGFR AMERI CAN 89 > OR = 60 mL/min/1.73m2 2016 [facility] SPECIAL CHEMISTRY Globulin 3.4 1.9 - 3.7 09/10/2017 [facility] SPECIAL CHEMISTRY Albumin Lvl 3.8 3.6 - 5.1 09/10/2017 [facility] SPECIAL CHEMISTRY Total Protein 7.2 6.1 - 8.1 09/10/2017 [facility] SPECIAL CHEMISTRY Bili Total 0.5 0.2 - 1.2 09/10/2017 [facility] SPECIAL CHEMISTRY A/G Ratio 1.1 1.0 - 2.5 09/10/2017 [facility] URINE CHEM U Microalb Comment SEE C OMMENT 09/10/2017 Result Comment:
The ADA defines ab normalities in albumin
excretion as follows:

Category Result (mcg/mg creatinine)

Normal <30
Microalbuminuria 30-299
Clinical albuminuria > OR = 300

The ADA recommends that at least two of three
specimens collected within a 3-6 month period be
abnormal before considering a patient to be
within a diagnostic category. [facility] URINE CHEM U Microalb 0.3 See Note: mg/dL 09/10/2017 Result Comment: Reference Range:

Reference Range
Not established

Lab test performed by:
[facility]
[address] [place] [address]
[place] [address]
Tamika Burns MD [facility] Chemistry HGBA1C 10.0 - 5.6 02/06/2015 [facility] Chemistry TRIGLYCERIDE 155 - 149 02/06/2015 [facility] Chemistry MAGNESIUM 1.7 1.8 - 2.4 02/06/2015 [facility] Chemistry SODIUM 137 MEQ/L 135 - 145 02/06/2015 [facility] Chemistry POTASSIUM 3.9 MEQ/L 3.5 - 5.1 02/06/2015 [facility] Chemistry CREATININE 1.0 0.5 - 1.4 02/06/2015 [facility] Chemistry BUN 18 7 - 22 02/06/2015 [facility] Chemistry BUN/CREAT 18 6 - 25 02/06/2015 [facility] Chemistry ALBUMIN 3.8 3.5 - 5.0 02/06/2015 [facility] Chemistry CALCIUM 10.3 8.5 - 10.5 02/06/2015 [facility] Chemistry SGPT (ALT) 54 0 - 65 02/06/2015 [facility] Chemistry SGOT (AST) 53 0 - 37 02/06/2015 [facility] Chemistry ALK PHOS 90 39 - 136 02/06/2015 [facility] Hematology HGB 14.6 12.0 - 16.0 02/06/2015 [facility] Hematology HCT 44.5 36.0 - 48.0 02/06/2015 [facility] Hematology PLATELETS 218 K/CMM 133 - 450 02/06/2015 [facility] Chemistry HGBA1C 8.1 - 5.6 11/28/2014 [facility] Chemistry AMYLASE 50 25 - 115 11/28/2014 [facility] Chemistry SODIUM 136 MEQ/L 135 - 145 11/28/2014 [facility] Chemistry HGBA1C 8.1 - 5.6 11/28/2014 [facility] Chemistry AMYLASE 50 25 - 115 11/28/2014 [facility] Chemistry SODIUM 136 MEQ/L 135 - 145 11/28/2014 [facility] Chemistry POTASSIUM 3.5 MEQ/L 3.5 - 5.1 11/28/2014 [facility] Chemistry CREATININE 1.0 0.5 - 1.4 11/28/2014 [facility] Chemistry BUN 14 7 - 22 11/28/2014 [facility] Chemistry BUN/CREAT 14 6 - 25 11/28/2014 [facility] Chemistry ALBUMIN 3.7 3.5 - 5.0 11/28/2014 [facility] Chemistry CALCIUM 10.0 8.5 - 10.5 11/28/2014 [facility] Chemistry SGPT (ALT) 60 0 - 65 11/28/2014 [facility] Chemistry SGOT (AST) 62 0 - 37 11/28/2014 [facility] Chemistry ALK PHOS 113 39 - 136 11/28/2014 [facility] Hematology HGB 13.8 12.0 - 16.0 11/28/2014 [facility] Hematology HCT 42.1 36.0 - 48.0 11/28/2014 [facility] Hematology PLATELETS 197 K/CMM 133 - 450 11/28/2014 [facility] Chemistry HGBA1C 8.0 - 5.6 08/15/2014 [facility] Chemistry TSH 3.360 0.360 - 3.740 08/15/2014 [facility] Chemistry CHOLESTEROL 165 - 199 08/15/2014 [facility] Chemistry HGBA1C 8.0 - 5.6 08/15/2014 [facility] Chemistry TSH 3.360 0.360 - 3.740 08/15/2014 [facility] Chemistry CHOLESTEROL 165 - 199 08/15/2014 [facility] Chemistry TRIGLYCERIDE 171 - 149 08/15/2014 [facility] Chemistry HDL 55 >=61 08/15/2014 [facility] Chemistry LDL 76 - 99 08/15/2014 [facility] Chemistry SODIUM 137 MEQ/L 135 - 145 08/15/2014 [facility] Chemistry POTASSIUM 3.5 MEQ/L 3.5 - 5.1 08/15/2014 [facility] Chemistry CREATININE 0.7 0.5 - 1.4 08/15/2014 [facility] Chemistry BUN 17 7 - 22 08/15/2014 [facility] Chemistry BUN/CREAT 24 6 - 25 08/15/2014 [facility] Chemistry ALBUMIN 3.9 3.5 - 5.0 08/15/2014 [facility] Chemistry CALCIUM 9.7 8.5 - 10.5 08/15/2014 [facility] Chemistry HGBA1C 8.0 - 5.6 08/15/2014 [facility] Chemistry TSH 3.360 0.360 - 3.740 08/15/2014 [facility] Chemistry CHOLESTEROL 165 - 199 08/15/2014 [facility] Chemistry SGPT (ALT) 51 0 - 65 08/15/2014 [facility] Chemistry SGOT (AST) 42 0 - 37 08/15/2014 [facility] Chemistry ALK PHOS 114 39 - 136 08/15/2014 [facility] Chemistry HGBA1C 10.7 - 5.6 05/04/2014 [facility] Chemistry CHOLESTEROL 174 - 199 05/04/2014 [facility] Chemistry TRIGLYCERIDE 196 - 149 05/04/2014 [facility] Chemistry HGBA1C 10.7 - 5.6 05/04/2014 [facility] Chemistry CHOLESTEROL 174 - 199 05/04/2014 [facility] Chemistry TRIGLYCERIDE 196 - 149 05/04/2014 [facility] Chemistry HGBA1C 10.7 - 5.6 05/04/2014 [facility] Chemistry CHOLESTEROL 174 - 199 05/04/2014 [facility] Chemistry TRIGLYCERIDE 196 - 149 05/04/2014 [facility] Chemistry HDL 50 >=61 05/04/2014 [facility] Chemistry LDL 85 - 99 05/04/2014 [facility] Chemistry SODIUM 140 MEQ/L 135 - 145 05/04/2014 [facility] Chemistry POTASSIUM 4.3 MEQ/L 3.5 - 5.1 05/04/2014 [facility] Chemistry CREATININE 0.9 0.5 - 1.4 05/04/2014 [facility] Chemistry BUN 13 7 - 22 05/04/2014 [facility] Chemistry BUN/CREAT 14 6 - 25 05/04/2014 [facility] Chemistry ALBUMIN 3.6 3.5 - 5.0 05/04/2014 [facility] Chemistry CALCIUM 9.1 8.5 - 10.5 05/04/2014 [facility] Chemistry SGPT (ALT) 62 0 - 65 05/04/2014 [facility] Chemistry SGOT (AST) 59 0 - 37 05/04/2014 [facility] Chemistry ALK PHOS 111 39 - 136 05/04/2014 [facility] Chemistry TSH 2.820 0.360 - 3.740 05/04/2014 [facility] Hematology HGB 14.5 12.0 - 16.0 05/04/2014 [facility] Hematology HCT 43.6 36.0 - 48.0 05/04/2014 [facility] Hematology PLATELETS 181 K/CMM 133 - 450 05/04/2014 [facility] Pathology Reports No Data Provided for This Section Diagnostic Reports Report Value Date Source Spine cervical 2 or 3 view DX Study: Spine cervical 2 or 3 view DX 03/20/2018 10:33 AM CDT Clinical Indication:62 years Female - evaluate fusion status ; Comparison: 09/08/2017 DISCUSSION: C4 through C6 intact ACDF hardware is again noted including artificial disc cage at C5-C6. There is bony fusion of C4-C5. Incomplete bony fusion of C5-C6. No evidence of effort induced listhesis on flexion and extension views. No odontoid view obtained. No evidence of fractures or dislocations are seen. The prevertebral soft tissues are normal. If clinical concern persists consider further evaluation with MRI or CT of the cervical spine. IMPRESSION: Incomplete fusion at C5-C6, without evidence of effort induced listhesis or acute bony abnormality. 03/20/2018 [facility] [place] Biopsy liver VR NEEDLE BIOPSY OF THE LIVER: HISTORY: Cirrhosis of undetermined etiology. PROCEDURE: A suitable access site in the right intercostal region was identified with ultrasound. The procedure was then done using fluoroscopic guidance, sterile technique and local anesthetic. The fluoroscopic time was 1.4 minutes (73 mGy). A 17-gauge guide needle was placed into the right lobe of the liver. Three cores of tissue were then obtained using a coaxial 18-gauge cutting needle and placed into formalin for histology. The tract was embolized with 2 pieces of gelfoam via the guide needle prior to its removal. The patient tolerated the procedure well without complications, and was transferred to Special Procedures observation in stable condition. [id number] 10/17/2017 [facility] cervical series DX Exam: Cervical spine x-ray, 4 views Reason for Exam: - eval fusion status Comparison Exam: X-ray 02/16/2010 and MRI 8 07/19/2017 Discussion: On lateral view, the cervical spine is seen from the C1 vertebral body level down through the C7/T1 junction. Patient is status post anterior cervical fusion at the C4/C5 and C5/C6 levels. There is a significant amount of bony fusion seen at the C4/C5 level. The vertebral body heights are maintained. The metallic hardware appears intact. No spondylolisthesis appreciated. The flexion and extension views are unremarkable. No suspicious osteoblastic or osteolytic lesions. Prevertebral soft tissue is within normal limits. Lateral masses of C1 and dens of C2 are not adequately seen on frontal view. Please note that a cervical spine x-ray cannot rule out ligamentous injuries or spinal cord abnormalities. Visualized portions of the lung apices are unremarkable. Impression: 1. Metallic hardware appears intact. No spondylolisthesis. 09/08/2017 [facility] [place] Knee wo contrast MRI EXAMINATI ON: MRI of the left knee without contrast HISTORY: - M25.562 Pain in left knee; anterior left knee pain; left patellar tendinosis; left patellar chondromalacia COMPARISON: There are no radiographs available for review. TECHNIQUE: Multiplanar, multisequence magnetic resonance imaging of the left knee is performed with an extremity coil without contrast. FINDINGS: Menisci: --Medial: The anterior horn, body, and p osterior horn are intact. --Lateral: The anterior horn, body, and posterior horn are intact. Ligaments: The cruciate ligaments are intact. The medial collateral ligament and lateral collateral ligament complex are intact. Extensor mechanism: There is mild diffuse patellar tendinosis. The extensor mechanism is intact. Muscles: There is normal signal intensity and muscle bulk of the musculature at the knee. Cartilage: Within the medial compartment, there is a tiny focus of partial- thickness chondrosis along the lateral aspect of the weightbearing medial femoral condyle without subchondral edema. Within the lateral compartment, there is no focal chondrosis or subchondral marrow edema. Within the patellofemoral compartment, there is deep partial thickness chondrosis involving the lateral aspect of the patellar median ridge and lateral patellar facet with a small focus of subchondral edema along the lateral aspect of the patellar median ridge at the superior pole of the patella. The trochlear articular cartilage is within normal limits. Bone: Again, there is a focus of subchondral edema within the patella. There are no acute fractures. There are no suspicious bone marrow replacing lesions. Soft tissues: There is a trace knee effusion with fluid decompressing along the proximal popliteus tendon sheath. There is a miniscule amount of fluid within a Lauren's cyst. IMPRESSION: 1. 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 2. Minimal medial compartment chondrosis of the left knee with a tiny focus of partial-thickness chondrosis along the lateral aspect of the weightbearing medial femoral condyle without subchondral edema. 3. Mild diffuse left patellar tendinosis without tendon tear. 4. Trace left knee effusion with fluid d ecompressing along the proximal popliteus tendon sheath. 5. Miniscule amount of fluid within a le ft knee Lauren's cyst. 6. Intact left knee menisci, cruciate li gaments, and collateral ligaments. 07/19/2017 [facility] Spine cervical wo contrast MRI Spine cervical wo contrast MRI 07/19/2017 9:06 AM CDT TECHNIQUE: Multiplanar multisequence imaging of the cervical spine was performed without administration of intravenous gadolinium. COMPARISON: 02/27/2010 MRI exam. FINDINGS: Multilevel disc desiccation is seen. C1-C2: Unremarkable. C2-C3: Minimal disc bulge without central canal or foraminal stenosis. C3-C4: 2 mm broad-based central disc protrusion with mild central canal stenosis. No significant cord indentation. Mild right foraminal stenosis due to foraminal osteophytes. C4-C5: Solid ACDF changes. No central canal stenosis. Left foraminal osteophytes are present with moderate left foraminal stenosis. C5-C6: Significant disc narrowing compared to 2010. Approximately 3 mm posterior osteophytes are present with mild central canal stenosis and mild cord indentation. Prominent bilateral foraminal osteophytes and uncovertebral joint arthrosis are also more prominent since 2010 with severe left and moderate to severe right foraminal stenosis. C6-C7: 5.8 mm anterior osteophytes. 3 mm disc bulge with mild central canal stenosis. No cord indentation. Severe bilateral foraminal stenosis due to foraminal osteophytes and UVJ arthrosis. C7-T1: Unremarkable. The cervical cord signal is unremarkable without MRI evidence of myelomalacia. IMPRESSION: 1. Multilevel disc degenerative disease and spondylosis. 2. C3-C4 small central disc protrusion w ith mild central canal stenosis and mild right foraminal stenosis. 3. C4-C5 solid ACDF. Moderate left mindy inal stenosis. No central canal stenosis. 4. Progressive C5-C6 degenerative change s since 2009 with mild central canal stenosis and cord indentation due to posterior osteophytes. Severe left foraminal stenosis, moderate to severe right foraminal stenosis. 5. C6-C7 severe bilateral foraminal sten osis. 07/19/2017 [facility] Consultation Notes No Data Provided for This Section Discharge Summaries No Data Provided for This Section History and Physicals No Data Provided for This Section Vital Signs Vital Sign Value Date Comments Source Systolic (mm Hg) 129 08/10/2019 [facility] Diastolic (mm Hg) 80 08/10/2019 [facility] Heart Rate 86 08/10/2019 [facility] Temperature Oral (F) 98.5 F 08/10/2019 [facility] Height 157.48 cm 08/10/2019 [facility] Weight 128.381 08/10/2019 [facility] BMI Calculated 51.77 08/10/2019 [facility] Systolic (mm Hg) 144 06/14/2019 [facility] Diastolic (mm Hg) 85 06/14/2019 [facility] Heart Rate 91 06/14/2019 [facility] Temperature Oral (F) 98.6 F 06/14/2019 [facility] Height 154.94 cm 06/14/2019 [facility] Weight 130.909 06/14/2019 [facility] BMI Calculated 54.53 06/14/2019 [facility] Systolic (mm Hg) 199 05/14/2019 [facility] Diastolic (mm Hg) 97 05/14/2019 [facility] Heart Rate 74 05/14/2019 [facility] Temperature Oral (F) 98.6 F 05/14/2019 [facility] Height 157.48 cm 05/14/2019 [facility] Weight 136.932 05/14/2019 [facility] BMI Calculated 55.21 05/14/2019 [facility] Weight 139.176 04/29/2019 [facility] BMI Calculated 56.12 04/29/2019 [facility] Height 157.48 cm 04/29/2019 [facility] Systolic (mm Hg) 174 04/29/2019 [facility] Diastolic (mm Hg) 100 04/29/2019 [facility] Heart Rate 81 04/29/2019 [facility] Temperature Oral (F) 98.4 F 04/29/2019 [facility] BMI Calculated 53.15 08/25/2018 [facility] Weight 140.455 08/25/2018 [facility] Height 162.56 cm 08/25/2018 [facility] Heart Rate 83 08/25/2018 [facility] Systolic (mm Hg) 124 08/25/2018 [facility] Diastolic (mm Hg) 69 08/25/2018 [facility] BMI Calculated 56.61 07/13/2018 [facility] Weight 135.909 07/13/2018 [facility] Height 154.94 cm 07/13/2018 [facility] Heart Rate 78 07/13/2018 [facility] Respitory Rate 15 07/13/2018 [facility] Temperature Oral (F) 98 F 07/13/2018 [facility] Systolic (mm Hg) 103 07/13/2018 [facility] Diastolic (mm Hg) 67 07/13/2018 [facility] Height 157.48 cm 04/13/2018 [facility] Weight 136.506 04/13/2018 [facility] BMI Calculated 55.04 04/13/2018 [facility] Systolic (mm Hg) 127 04/13/2018 [facility] Diastolic (mm Hg) 74 04/13/2018 [facility] Temperature Oral (F) 98.3 F 04/13/2018 [facility] Heart Rate 89 04/13/2018 [facility] Height 157.48 cm 01/12/2018 [facility] Weight 132.443 01/12/2018 [facility] BMI Calculated 53.4 01/12/2018 [facility] Systolic (mm Hg) 148 01/12/2018 [facility] Diastolic (mm Hg) 88 01/12/2018 [facility] Heart Rate 83 01/12/2018 [facility] Temperature Oral (F) 98.2 F 01/12/2018 [facility] BMI Calculated 53.15 10/16/2017 [facility] Weight 131.818 10/16/2017 [facility] Height 157.48 cm 10/16/2017 [facility] Weight 131.818 10/13/2017 [facility] BMI Calculated 53.15 10/13/2017 [facility] Height 157.48 cm 10/13/2017 [facility] Heart Rate 95 10/13/2017 [facility] Respitory Rate 18 10/13/2017 [facility] Temperature Oral (F) 97.8 F 10/13/2017 [facility] Systolic (mm Hg) 126 10/13/2017 [facility] Diastolic (mm Hg) 84 10/13/2017 [facility] BMI Calculated 52.71 09/10/2017 [facility] Height 157.48 cm 09/10/2017 [facility] Systolic (mm Hg) 118 09/10/2017 [facility] Diastolic (mm Hg) 79 09/10/2017 [facility] Weight 130.71 09/10/2017 [facility] Temperature Oral (F) 98.0 F 09/10/2017 [facility] Heart Rate 83 09/10/2017 [facility] Height 64 0 02/06/2015 [facility] Weight 307 02/06/2015 [facility] Temperature Oral (F) 97.6 F 02/06/2015 [facility] Heart Rate 96 02/06/2015 [facility] Systolic (mm Hg) 135 02/06/2015 [facility] Diastolic (mm Hg) 88 02/06/2015 [facility] Height 64 0 11/28/2014 [facility] Weight 308 11/28/2014 [facility] Temperature Oral (F) 97.6 F 11/28/2014 [facility] Heart Rate 84 11/28/2014 [facility] Systolic (mm Hg) 138 11/28/2014 [facility] Diastolic (mm Hg) 75 11/28/2014 [facility] Height 64 1 10/15/2013 [facility] Weight 304.50 08/15/2014 [facility] Temperature Oral (F) 97.1 F 08/15/2014 [facility] Heart Rate 95 08/15/2014 [facility] Systolic (mm Hg) 139 08/15/2014 [facility] Diastolic (mm Hg) 80 08/15/2014 [facility] Height 64 1 [facility] Weight 308 07/07/2014 [facility] Temperature Oral (F) 98.4 F 07/07/2014 [facility] Heart Rate 90 07/07/2014 [facility] Systolic (mm Hg) 146 07/07/2014 [facility] Diastolic (mm Hg) 82 07/07/2014 [facility] Height 64 0 05/26/2014 [facility] Temperature Oral (F) 98.1 F 05/26/2014 [facility] Respitory Rate 14 05/26/2014 [facility] Heart Rate 77 05/26/2014 [facility] Systolic (mm Hg) 122 05/26/2014 [facility] Diastolic (mm Hg) 86 05/26/2014 [facility] Weight 305 05/11/2014 [facility] Temperature Oral (F) 98.4 F 05/11/2014 [facility] Heart Rate 84 05/11/2014 [facility] Systolic (mm Hg) 133 05/11/2014 [facility] Diastolic (mm Hg) 81 05/11/2014 [facility] Weight 303 05/04/2014 [facility] Height 64 0 05/04/2014 [facility] Temperature Oral (F) 98.4 F 05/04/2014 [facility] Heart Rate 86 05/04/2014 [facility] Systolic (mm Hg) 130 05/04/2014 [facility] Diastolic (mm Hg) 87 05/04/2014 [facility] Encounters Location Location Details Encounter Type Encounter Number Reason For Visit Attending Provider ADM Date DC Date Status Source [facility] Office Visit [id number] Stormy Brownlee, HADOOP JAVA DEVELOPER 05/04/2014 05/04/2014 [facility] [id number] Stormy Brownlee, HADOOP JAVA DEVELOPER 05/04/2014 05/04/2014 Medical [facility] Office Visit [id number] Stormy Brownlee, LAURIE 05/04/2014 05/04/2014 [facility] [id number] Stormy Brownlee, LAURIE 05/11/2014 05/11/2014 [facility] [id number] Stormy Brownlee, HADOOP JAVA DEVELOPER 05/26/2014 05/26/2014 Medical Group [facility] [place] Office Visit [id number] Stormy Brownlee, HADOOP JAVA DEVELOPER 07/07/2014 07/07/2014 Medical [facility] [place] Lab Report [id number] Stormy Brownlee, HADOOP JAVA DEVELOPER 08/15/2014 08/15/2014 Medical [facility] [place] Lab Report [id number] Niyah Ott MD 11/28/2014 11/28/2014 Medical [facility] Lab Report [id number] Niyah Ott MD 12/07/2014 12/07/2014 Medical [facility] [place] Lab Report [id number] Niyah Ott MD 02/06/2015 02/06/2015 Medical [facility] Outpatient [id number] NIYAH OTT 04/24/2015 Active [facility] Outpatient [id number] NIYAH OTT 05/25/2015 Active [facility] Outpatient [id number] NIYAH OTT 06/27/2015 Active [facility] Outpatient [id number] NIYAH OTT 10/02/2015 Active [facility] Outpatient [id number] NIYAH OTT 10/23/2015 Active [facility] Outpatient [id number] HOWARD BRYAN 06/04/2016 Active [facility] Outpatient [id number] NIYAH OTT 2016 Active [facility] Outpatient [id number] Kang [place] 05/21/2017 05/21/2017 [facility] Outpatient Imaging [facility] Outpt Diag Services [id number] [place] 07/19/2017 07/20/2017 [facility]patient [facility] - [place] Outpt Diag Services [id number] Vic Sawyer 09/08/2017 09/09/2017 [facility] [place] Outpatient [id number] MYESHA MCKEON 09/10/2017 Active [facility] [place] Outpatient [id number] Niyah Ott 09/10/2017 09/11/2017 [facility] [place] Phone Message [id number] 09/19/2017 09/21/2017 [facility] Outpatient [id number] MYESHA MCKEON 10/13/2017 [facility] [place] [facility] [id number] Niyah Ott 10/13/2017 10/14/2017 [facility] Outpatient [id number] Bryan Smith 10/16/2017 10/17/2017 MH [facility] Outpatient [id number] MYESHA MCKEON 01/12/2018 Active [facility] [place] Outpatient [id number] Myesha Mckeon 01/12/2018 01/13/2018 [facility] Outpatient [id number] Myesha Mckeon 02/13/2018 02/14/2018 [facility] Outpatient Imaging - [place] Outpt Diag Services [id number] Job Sawyer 03/20/2018 03/21/2018 [facility] [place] Outpatient [id number] MYESHA MCKEON 04/13/2018 Active [facility] [place] Outpatient [id number] Myesha Mckeon 04/13/2018 04/14/2018 [facility] Outpatient [id number] MYESHA MCKEON 07/13/2018 Active [facility] [place] Outpatient [id number] Myesha Mckeon 07/13/2018 07/14/2018 [facility] Outpatient [id number] JASIEL OLIVEROS 08/25/2018 [facility] [place] [facility] [id number] Jasiel Oliveros II 08/25/2018 08/26/2018 [facility] [place] Phone Message [id number] 08/25/2018 08/27/2018 [facility] Outpatient [id number] Myesha Mckeon 04/29/2019 [facility] [place] [facility] [id number] Myesha Mckeon 04/29/2019 04/30/2019 [facility] [place] Between Visit [id number] 04/30/2019 05/01/2019 [facility] [place] Phone Message [id number] 05/11/2019 05/13/2019 [facility] Outpatient [id number] Myesha Mckeon 05/14/2019 Active [facility] [place] Outpatient [id number] Myesha Mckeon 05/14/2019 05/15/2019 [facility] Outpatient [id number] Myesha Mckeon 06/14/2019 Active [facility] [place] Outpatient [id number] Myesha Mckeon 06/14/2019 06/15/2019 [facility] [place] Between Visit [id number] 08/03/2019 08/04/2019 Medical [facility] Outpatient [id number] Myesha Mckeon 08/10/2019 Active [facility] [place] Outpatient [id number] Myesha Mckeon 08/10/2019 08/11/2019 [facility] Procedures Procedure Code Date Perfomer Comments Source Collection of venous blood by venipuncture [id number] 01/12/2018 Medical [facility] Fusion [id number] 08/13/2017 [facility], OPI [place],[facility] Colonoscopy<sup>1</sup> [id number] 07/12/2017 internal hemorrhoid diverticulosis rpt in 5 yrs [facility] [place] diabetic foot check [id number] 08/15/2014 yes [facility] diabetic eye exam 45954.1 05/26/2014 Complete [facility] Cholecystectomy [id number] [facility] Total hysterectomy [id number] [facility], [facility] Assessment and Plan Assessment and Plan Date Source Extracted from:Title: IR Liver Biopsy Author: Abdulaziz Ridley MD Date: 10/16/17 PROCEDURE REQUESTED: Non-target needle biopsy of liver REQUESTING PHYSICIAN: Bryan Obrien MD (Gastroenterology) HISTORY/INDICATIONS: Cirrhosis of unknown etiology. MEDICAL: Morbid obesity, hypertension, diabetes, hypercholesterolemia, hypothyriodism, asthma, gastroesophageal reflux disease, fibromyalgia PROCEDURAL HISTORY: Cholecystectomy, hysterectomy, breast biopsy, colonoscopy, cervical fusion MEDICATIONS: Symbicort, Ventolin, Tresiba, Xigduo, Alinia, Lyrica, gabapentin, meloxicam, amlopidine/HCTZ/valsartin, simvistatin, omeprozole, Zofran, Donnetol, Linzess, Bydureon, levothyroxine, lantaprost opthalmic, nystatin topical, triamcinilone topical ALLERGIES: Penicillins, iodine (no reaction with contrast) PHYSICAL FINDINGS: BP 158/79 P 78 R 14 BMI 53.15 Alert, oriented, no acute distress SaO2 100% ETCO2 45 Regular rythym IMPRESSION: Cirrhosis of unknown etiology PLAN: Needle biopsy of liver with US/fluoroscopy. Procedure and risks discussed with patient and , including bleeding and adjacent organ injury. Patient declined blood products at this time but stated she would change her mind if needed. Procedure low risk for bleeding, therefore will proceed. ASA: II 10/17/2017 [facility] Plan of Care No Data Provided for This Section Social History Social History Date Source Social History TypeResponse Alcohol Past, Type Beer, Liquor. Frequency: 1-2 times per week. 0 Drinks/Episode average. Last use: 2006. Previous treatment: None. Alcohol use interferes with work or home: No. Drinks more than intended: No. Others hurt by drinking: No. Household alcohol concerns: No. Smoking Status Former smoker; Type: Cigarettes; Previous treatment: None; Ready to change: No; Concerns about tobacco use in household: No; Exposure to Tobacco Smoke None; Cigarette Smoking Last 365 Days No; Reg Smoking Cessation Counseling No; Started at age: 22.0; Stopped at age: 32; Other Tobacco Frequency quit 851; entered on: 08/11/19 08/11/2019 [facility] Social History TypeResponse Alcohol Past, Type Beer, Liquor. Frequency: 1-2 times per week. 0 Drinks/Episode average. Last use: 2006. Previous treatment: None. Alcohol use interferes with work or home: No. Drinks more than intended: No. Others hurt by drinking: No. Household alcohol concerns: No. Smoking Status Former smoker; Type: Cigarettes; Previous treatment: None; Ready to change: No; Concerns about tobacco use in household: No; Exposure to Tobacco Smoke None; Cigarette Smoking Last 365 Days No; Reg Smoking Cessation Counseling No; Started at age: 22.0; Stopped at age: 32; Other Tobacco Frequency quit 851; entered on: 01/12/18 01/12/2018 [facility] Social History TypeResponse Alcohol Past, Type Beer, Liquor. Frequency: 1-2 times per week. 0 Drinks/Episode average. Last use: 2006. Previous treatment: None. Alcohol use interferes with work or home: No. Drinks more than intended: No. Others hurt by drinking: No. Household alcohol concerns: No. Smoking Status Former smoker; Type: Cigarettes; Previous treatment: None; Ready to change: No; Concerns about tobacco use in household: No; Exposure to Tobacco Smoke None; Cigarette Smoking Last 365 Days No; Reg Smoking Cessation Counseling No; Started at age: 22.0; Stopped at age: 32; Other Tobacco Frequency quit 851; entered on: 01/12/18 01/12/2018 [facility] Social History TypeResponse Smoking Status Never smoker; Exposure to Tobacco Smoke None; Cigarette Smoking Last 365 Days No; Reg Smoking Cessation Counseling No [facility] Social History TypeResponse Smoking Status Never smoker; Exposure to Tobacco Smoke None; Cigarette Smoking Last 365 Days No; Reg Smoking Cessation Counseling No [facility] Family History No Data Provided for This Section Advance Directives No Data Provided for This Section Functional Status No Data Provided for This Section
--- OUTSIDE RECORDS SUMMARY | 2020-08-07 03:47 | XMS REPORT | Clinical Summary ---
Author Author [facility] Organization [facility] Address Unknown Phone Unavailable Care Team Providers Care Field Reimbursement Manager Name Role Phone Pratibha Mckeon MD PCP Allergies Comments Active Allergy Reactions Severity Noted Date ADHESIVES Adhesive Tape-Silicones 07/25/2017 Iodine 07/08/2017 Itching Penicillins Rash High 05/16/2017 Medications End Date Status Medication Sig Dispensed Refills Start Date Active methyldopa (ALDOMET) 500 Take 500 mg 0 MG tablet by mouth 3 (three) times a day. Active dapagliflozin-metformin Take 2 0 (XIGDUO XR) 10-1,000 mg tablets by tablet, IR & ER, biphasic mouth daily. 24hr Active insulin degludec (TRESIBA Inject 50 0 FLEXTOUCH U-100) 100 Units under unit/mL (3 mL) insulin the skin pen nightly. Active exenatide microspheres Inject 2 mg 0 (BYDUREON) 2 mg/0.65 mL under the pen injector skin every 7 days. Active pregabalin (LYRICA) 50 MG Take 50 mg by 0 capsule mouth 2 (two) times a day. Active albuterol (PROAIR Inhale 2 0 HFA,PROVENTIL puffs every 6 HFA,VENTOLIN HFA) 90 (six) hours mcg/actuation inhaler as needed for wheezing. Active budesonide-formoterol Inhale 2 0 (SYMBICORT) 160-4.5 puffs 2 (two) mcg/actuation inhaler times a day. Active nystatin (MYCOSTATIN) Apply 0 100,000 unit/gram cream topically 2 (two) times a day. Active Problems Not on file Surgical History Surgery Date Site/Laterality Comments CHOLECYSTECTOMY TUBAL LIGATION HYSTERECTOMY CERVICAL FUSION Medical History Medical History Date Comments Asthma Diabetes mellitus (HCC) Hypertension Liver disease Cirrhosis (HCC) Social History Date Tobacco Use Types Packs/Day Years Used Never Assessed Sex Assigned at Date Recorded Not on file Last Filed Vital Signs Not on file Plan of Treatment Health Maintenance Due Date Last Done Comments CERVICAL CANCER SCREENING 1978 COLONOSCOPY SCREENING 12/24/2007 SHINGLES VACCINES (#1) 12/24/2007 BREAST CANCER SCREENING 07/25/2019 07/25/2017, 07/04/2017, 07/04/2017, Additional history exists INFLUENZA VACCINE 04/29/2020 Results Not on fileafter 08/07/2019 Insurance Type Payer Benefit Subscriber ID Effective Phone Address Plan / Dates Group PPO AETNA AETNA PPO [id number] OPEN resent CHOICE Advance Directives For more information, please contact: [phone] Patient Enamel Applier Explanation Type Date Recorded Advance Directives, Living Will and Medical Power of Licensed Mortician
== END 2020-08-07 03:39 | disposition home or self-care (01) ==
LOC: ER 01:10
DX: R51.9 Headache, unspecified (principal); I10 Essential (primary) hypertension; N39.0 Urinary tract infection, site not specified; R53.1 Weakness
CPT/HCPCS: 36415; 70450; 71045; 80053; 81001; 82550; 82553; 83880; 84484; 85025; 93005; 99284

== ENCOUNTER 2022-02-02 17:32 | Inpatient (IN) | payer BC ==
[~2022-02-02] VITALS: Ht 157.5 cm; Wt 123.6 kg
[2022-02-02 19:09] LABS: BASOPHILS % 0.9 % (0.0-1.0); EOSINOPHILS # (AUTO) 0.2 (0.0-0.4); EOSINOPHILS % 3.5 % (0.0-6.0); HEMOGLOBIN 9.8 g/dL (12.0-16.0); LYMPHOCYTES # (AUTO) 1.2 (1.0-3.2); LYMPHOCYTES % 26.4 % (18.0-39.1); MEAN CORPUSCULAR HEMOGLOBIN 29.8 pg (28-32); MEAN CORPUSCULAR HGB CONC 31.6 g/dL (31-35); MEAN CORPUSCULAR VOLUME 94.2 fL (81-99); MONOCYTES # (AUTO) 0.4 (0.2-0.8); MONOCYTES % 8.6 % (4.4-11.3); NEUTROPHILS # (AUTO) 2.7 (2.1-6.9); NEUTROPHILS % 60.4 % (38.7-80.0); PLATELET COUNT 134 x10e3/uL (140-360); RED BLOOD COUNT 3.29 x10e6/uL (3.6-5.1); RED CELL DISTRIBUTION WIDTH 16.1 % (11.7-14.4)
[2022-02-02 19:42] VITALS: BP 180/97
[2022-02-02 19:48] VITALS: BP 180/97
[2022-02-02 20:00] LABS: ALBUMIN 2.1 g/dL (3.5-5.0); ALBUMIN/GLOBULIN RATIO 0.5 (0.8-2.0); ANION GAP 12.6 mmol/L (8-16); CALCIUM 8.3 mg/dL (8.4-10.2); CREATININE, SERUM 2.27 mg/dL (0.57-1.11)
[2022-02-02 20:01] LABS: POTASSIUM 2.6 mmol/L (3.5-5.1)
[2022-02-02] MEDS ORDERED: XIGDUO XR 5 MG1 EAC1 PO (20:02)
[2022-02-02] MEDS ORDERED: CARVEDILOL25 MG PO (20:02)
[2022-02-02] MEDS ORDERED: DULOXETINE HCL60 MG PO (20:02)
[2022-02-02] MEDS ORDERED: LEVOTHYROXINE25 MCG PO (20:02)
[2022-02-02] MEDS ORDERED: AMLODIPINE BESY10 MG PO (20:02)
[2022-02-02] MEDS ORDERED: PANTOPRAZOLE SO40 MG PO (20:02)
[2022-02-02] MEDS ORDERED: SIMVASTATIN20 MG PO (20:02)
[2022-02-02] MEDS ORDERED: VITAMIN PO (20:02)
[2022-02-02] MEDS ORDERED: VALSARTAN320 MG PO (20:02)
[2022-02-02] MEDS ORDERED: BUMETANIDE2 MG PO (20:02)
[2022-02-02 20:11] VITALS: BP 180/97
[2022-02-02] MEDS ORDERED: POTASSIUM CHLORIDE 20 MEQ TAB CR PO STA (20:21)
[2022-02-02] MEDS ORDERED: SPIRONOLACTONE 25 MG TAB PO ONE (20:30)
[2022-02-02] MEDS ORDERED: POTASSIUM CHLORIDE 20MEQ/100ML 200 ML IV ONE (20:30)
[2022-02-02] MEDS ORDERED: ONDANSETRON HCL INJ 2MG/ML 2ML 2 MG/ML VIAL IV PRN (20:30)
[2022-02-02] MEDS ORDERED: SODIUM CHLORIDE 0.9% 250ML 250 ML ONE (21:15)
[2022-02-02] MEDS: ACETAMINOPHEN 325 MG TAB PO PRN (21:18)
[2022-02-02] MEDS ORDERED: DOCUSATE SODIUM 100 MG CAP PO PRN (22:30)
[2022-02-02] MEDS ORDERED: SIMETHICONE 80 MG CHEW PO PRN (22:30)
[2022-02-02] MEDS ORDERED: DIPHENHYDRAMINE HCL 25 MG CAP PO PRN (22:30)
[2022-02-02] MEDS ORDERED: POTASSIUM CHLORIDE 20 MEQ TAB CR PO PRN (22:30)
[2022-02-02] MEDS ORDERED: BENZONATATE 100 MG CAP PO PRN (22:30)
[2022-02-02] MEDS ORDERED: TRAMADOL HCL 50 MG TAB PO PRN (22:30)
[2022-02-02] MEDS ORDERED: MELATONIN 5 MG TABLET PO PRN (22:30)
[2022-02-02] MEDS ORDERED: DEXTROSE 50% SYRINGE 50 ML IV PRN ×2 (22:30)
[2022-02-02] MEDS ORDERED: LIDOCAINE 4% PATCH TP PRN (22:30)
[2022-02-02] MEDS: HYDRALAZINE HCL 20 MG/ML VIAL IV PRN (23:54)
[2022-02-03] VITALS (8 sets, daily range): BP systolic 102–196; BP diastolic 53–112
[2022-02-03] MEDS ORDERED: FUROSEMIDE INJ 10 MG/ML 4 ML VIAL IV SCH
[2022-02-03] MEDS: FUROSEMIDE INJ 100 MG in SODIUM CHLORIDE 0.9% 90 ML IV SCH ×2 (00:42→20:56)
[2022-02-03] MEDS: HYDRALAZINE HCL 20 MG/ML VIAL IV PRN ×2 (04:41→09:50)
[2022-02-03 06:46] LABS: BASOPHILS # (AUTO) 0.1 (0.0-0.1); BASOPHILS % 1.1 % (0.0-1.0); EOSINOPHILS # (AUTO) 0.2 (0.0-0.4); EOSINOPHILS % 4.1 % (0.0-6.0); HEMATOCRIT 34.3 % (34.2-44.1); HEMOGLOBIN 10.9 g/dL (12.0-16.0); LYMPHOCYTES # (AUTO) 1.3 (1.0-3.2); LYMPHOCYTES % 24.5 % (18.0-39.1); MEAN CORPUSCULAR HEMOGLOBIN 29.9 pg (28-32); MEAN CORPUSCULAR HGB CONC 31.8 g/dL (31-35); MEAN CORPUSCULAR VOLUME 94.2 fL (81-99); MONOCYTES # (AUTO) 0.4 (0.2-0.8); MONOCYTES % 6.9 % (4.4-11.3); NEUTROPHILS # (AUTO) 3.4 (2.1-6.9); PLATELET COUNT 150 x10e3/uL (140-360); RED BLOOD COUNT 3.64 x10e6/uL (3.6-5.1); RED CELL DISTRIBUTION WIDTH 16.4 % (11.7-14.4)
[2022-02-03 07:12] LABS: ANION GAP 14.1 mmol/L (8-16); CALCIUM 8.7 mg/dL (8.4-10.2); CHOL/HDL RATIO 3.1 (3.0-3.6); CREATININE, SERUM 2.28 mg/dL (0.57-1.11); MAGNESIUM 1.7 MG/DL (1.3-2.1); PHOSPHORUS 3.4 MG/DL (2.3-4.7); POTASSIUM 3.1 mmol/L (3.5-5.1)
[2022-02-03 07:18] LABS: B-TYPE NATRIURETIC PEPTIDE2 515.8 pg/mL (0-100)
[2022-02-03 07:24] LABS: THYROID STIMULATING HORMONE 6.173 uIU/mL (0.350-4.940)
[2022-02-03] MEDS: PANTOPRAZOLE SOD 40 MG TABEC PO SCH (08:30)
[2022-02-03] MEDS: INSULIN LISPRO 100 UNIT/1 ML 3ML VIAL SQ SCH ×4 (08:30→20:43)
[2022-02-03] MEDS ORDERED: AMLODIPINE BESYLATE 10 MG TAB PO SCH (09:00)
[2022-02-03] MEDS: CARVEDILOL 12.5 MG TAB PO SCH ×2 (09:16→16:50)
[2022-02-03] MEDS: SPIRONOLACTONE 25 MG TAB PO SCH ×2 (09:16→17:33)
[2022-02-03 11:15] LABS: CLARITY,URINE CLEAR (CLEAR); COLOR,URINE YELLOW (YELLOW); KETONES,URINE NEGATIVE (NEGATIVE); LEUKOCYTE ESTERASE ,URINE NEGATIVE (NEGATIVE); NITRITE,URINE NEGATIVE (NEGATIVE); PROTEIN,URINE DIPSTICK >=300 (NEGATIVE); URINE UROBILINOGEN 0.2 mg/dL (0.2 - 1)
[2022-02-03 11:18] LABS: BACTERIA,URINE FEW /HPF; EPITHELIAL CELLS,URINE MODERATE /LPF; RBC,URINE 0-5 /HPF (0-5); WBC,URINE (MAN) 0-5 /HPF (0-5)
[2022-02-03] MEDS: METOLAZONE 5 MG TAB PO SCH (14:30)
[2022-02-03] MEDS: CLONIDINE HCL 0.1 MG TAB PO SCH ×2 (15:00→20:59)
[2022-02-03] MEDS ORDERED: ENOXAPARIN SOD INJ 40 MG/0.4 ML SYR SC SCH (17:00)
[2022-02-03] MEDS ORDERED: ENOXAPARIN 30 MG/0.3 ML SYR SC SCH (17:00)
[2022-02-03] MEDS: BUDESONIDE 0.5MG/2 ML NEB INH SCH (19:47)
[2022-02-03] MEDS: SIMVASTATIN 20 MG TAB PO SCH (20:56)
[2022-02-03] MEDS: LEVOTHYROXINE SODIUM 25 MCG TABLET PO SCH (20:56)
[2022-02-04] VITALS (7 sets, daily range): BP systolic 121–145; BP diastolic 56–76
[2022-02-04 05:39] LABS: BASOPHILS # (AUTO) 0.1 (0.0-0.1); BASOPHILS % 1.1 % (0.0-1.0); EOSINOPHILS # (AUTO) 0.3 (0.0-0.4); EOSINOPHILS % 4.8 % (0.0-6.0); HEMATOCRIT 31.2 % (34.2-44.1); HEMOGLOBIN 9.5 g/dL (12.0-16.0); LYMPHOCYTES # (AUTO) 1.1 (1.0-3.2); LYMPHOCYTES % 20.2 % (18.0-39.1); MEAN CORPUSCULAR HGB CONC 30.4 g/dL (31-35); MEAN CORPUSCULAR VOLUME 98.4 fL (81-99); MONOCYTES # (AUTO) 0.4 (0.2-0.8); MONOCYTES % 6.7 % (4.4-11.3); NEUTROPHILS # (AUTO) 3.8 (2.1-6.9); NEUTROPHILS % 66.8 % (38.7-80.0); PLATELET COUNT 154 x10e3/uL (140-360); RED BLOOD COUNT 3.17 x10e6/uL (3.6-5.1); RED CELL DISTRIBUTION WIDTH 16.3 % (11.7-14.4)
[2022-02-04 05:53] LABS: INR 0.93; PROTHROMBIN TIME 13.3 seconds (11.9-14.5)
[2022-02-04 06:01] LABS: ALBUMIN/GLOBULIN RATIO 0.5 (0.8-2.0); ANION GAP 12.5 mmol/L (8-16); CALCIUM 8.2 mg/dL (8.4-10.2); CREATININE, SERUM 2.57 mg/dL (0.57-1.11); POTASSIUM 3.5 mmol/L (3.5-5.1)
[2022-02-04] MEDS: FUROSEMIDE INJ 100 MG in SODIUM CHLORIDE 0.9% 90 ML IV SCH ×2 (06:10→21:13)
[2022-02-04 06:27] LABS: THYROID STIMULATING HORMONE 5.829 uIU/mL (0.350-4.940)
[2022-02-04] MEDS: BUDESONIDE 0.5MG/2 ML NEB INH SCH ×2 (07:10→19:18)
[2022-02-04] MEDS: INSULIN LISPRO 100 UNIT/1 ML 3ML VIAL SQ SCH ×4 (07:30→20:58)
[2022-02-04] MEDS: PANTOPRAZOLE SOD 40 MG TABEC PO SCH (07:30)
[2022-02-04] MEDS: SPIRONOLACTONE 25 MG TAB PO SCH ×2 (08:24→17:26)
[2022-02-04] MEDS: CARVEDILOL 12.5 MG TAB PO SCH ×2 (08:25→17:27)
[2022-02-04] MEDS: CLONIDINE HCL 0.1 MG TAB PO SCH ×3 (08:25→21:12)
[2022-02-04] MEDS: AMLODIPINE BESYLATE 10 MG TAB PO SCH (08:25)
[2022-02-04] MEDS: METOLAZONE 5 MG TAB PO SCH (08:26)
[2022-02-04 10:52] LABS: % IRON SATURATION 19 % (15-50); IRON 39 ug/dL (50-170); TOTAL IRON BINDING CAPACITY 206 ug/dL (261-478); TRANSFERRIN 147 mg/dL (180-382)
[2022-02-04] MEDS ORDERED: ALBUMIN 25% 25GM 100ML 0.25 GM/ML BTL IV ONE (16:30)
[2022-02-04] MEDS ORDERED: ALBUMIN 25% 25GM 100ML 100 ML IV ONE (17:00)
[2022-02-04] MEDS ORDERED: CALCIUM GLUC 1 G/50 ML NACL 50 ML IV ONE (17:00)
[2022-02-04] MEDS ORDERED: SODIUM CHLORIDE 0.9% 250ML 250 ML ONE (17:49)
[2022-02-04] MEDS: ACETAMINOPHEN 325 MG TAB PO PRN (20:59)
[2022-02-04] MEDS: LEVOTHYROXINE SODIUM 25 MCG TABLET PO SCH (21:12)
[2022-02-04] MEDS: SIMVASTATIN 20 MG TAB PO SCH (21:13)
[2022-02-05] VITALS (7 sets, daily range): BP systolic 102–122; BP diastolic 55–66
[2022-02-05 06:14] LABS: BASOPHILS % 1.3 % (0.0-1.0); EOSINOPHILS # (AUTO) 0.1 (0.0-0.4); EOSINOPHILS % 4.1 % (0.0-6.0); HEMATOCRIT 28.3 % (34.2-44.1); HEMOGLOBIN 8.6 g/dL (12.0-16.0); LYMPHOCYTES # (AUTO) 1.1 (1.0-3.2); LYMPHOCYTES % 32.8 % (18.0-39.1); MEAN CORPUSCULAR HEMOGLOBIN 30.2 pg (28-32); MEAN CORPUSCULAR HGB CONC 30.4 g/dL (31-35); MEAN CORPUSCULAR VOLUME 99.3 fL (81-99); MONOCYTES # (AUTO) 0.3 (0.2-0.8); MONOCYTES % 7.8 % (4.4-11.3); NEUTROPHILS # (AUTO) 1.7 (2.1-6.9); NEUTROPHILS % 53.7 % (38.7-80.0); PLATELET COUNT 128 x10e3/uL (140-360); RED BLOOD COUNT 2.85 x10e6/uL (3.6-5.1); RED CELL DISTRIBUTION WIDTH 16.1 % (11.7-14.4)
[2022-02-05 06:31] LABS: ANION GAP 9.6 mmol/L (8-16); CALCIUM 8.3 mg/dL (8.4-10.2); CREATININE, SERUM 2.86 mg/dL (0.57-1.11); POTASSIUM 3.6 mmol/L (3.5-5.1)
[2022-02-05] MEDS: BUDESONIDE 0.5MG/2 ML NEB INH SCH ×2 (07:15→22:00)
[2022-02-05] MEDS: INSULIN LISPRO 100 UNIT/1 ML 3ML VIAL SQ SCH ×4 (07:44→21:39)
[2022-02-05] MEDS: PANTOPRAZOLE SOD 40 MG TABEC PO SCH (08:25)
[2022-02-05] MEDS: METOLAZONE 5 MG TAB PO SCH (08:26)
[2022-02-05] MEDS: CLONIDINE HCL 0.1 MG TAB PO SCH ×3 (08:26→21:00)
[2022-02-05] MEDS: CARVEDILOL 12.5 MG TAB PO SCH ×2 (08:26→17:57)
[2022-02-05] MEDS: AMLODIPINE BESYLATE 10 MG TAB PO SCH (08:26)
[2022-02-05] MEDS ORDERED: ALBUMIN 25% 25GM 100ML 0.25 GM/ML BTL IV ONE (11:45)
[2022-02-05] MEDS ORDERED: ALBUMIN 25% 25GM 100ML 100 ML IV ONE (12:15)
[2022-02-05] MEDS: SPIRONOLACTONE 25 MG TAB PO SCH ×2 (12:40→21:21)
[2022-02-05] MEDS: ACETAMINOPHEN 325 MG TAB PO PRN (18:21)
[2022-02-05] MEDS: FUROSEMIDE INJ 100 MG in SODIUM CHLORIDE 0.9% 90 ML IV SCH (19:52)
[2022-02-05] MEDS: SIMVASTATIN 20 MG TAB PO SCH (21:21)
[2022-02-05] MEDS: LEVOTHYROXINE SODIUM 25 MCG TABLET PO SCH (21:21)
[2022-02-06] VITALS (10 sets, daily range): BP systolic 117–140; BP diastolic 56–72
[2022-02-06 05:01] LABS: BASOPHILS % 0.9 % (0.0-1.0); EOSINOPHILS # (AUTO) 0.1 (0.0-0.4); EOSINOPHILS % 4.1 % (0.0-6.0); HEMATOCRIT 29.3 % (34.2-44.1); HEMOGLOBIN 8.8 g/dL (12.0-16.0); LYMPHOCYTES # (AUTO) 1.1 (1.0-3.2); LYMPHOCYTES % 31.1 % (18.0-39.1); MEAN CORPUSCULAR HEMOGLOBIN 29.8 pg (28-32); MEAN CORPUSCULAR VOLUME 99.3 fL (81-99); MONOCYTES # (AUTO) 0.2 (0.2-0.8); MONOCYTES % 7.1 % (4.4-11.3); NEUTROPHILS # (AUTO) 1.9 (2.1-6.9); NEUTROPHILS % 56.5 % (38.7-80.0); PLATELET COUNT 159 x10e3/uL (140-360); RED BLOOD COUNT 2.95 x10e6/uL (3.6-5.1); RED CELL DISTRIBUTION WIDTH 15.9 % (11.7-14.4)
[2022-02-06 05:28] LABS: ANION GAP 11.7 mmol/L (8-16); CALCIUM 8.5 mg/dL (8.4-10.2); CREATININE, SERUM 3.59 mg/dL (0.57-1.11); MAGNESIUM 1.7 MG/DL (1.3-2.1); PHOSPHORUS 5.1 MG/DL (2.3-4.7); POTASSIUM 3.7 mmol/L (3.5-5.1)
[2022-02-06] MEDS: FUROSEMIDE INJ 100 MG in SODIUM CHLORIDE 0.9% 90 ML IV SCH ×2 (06:34→16:00)
[2022-02-06] MEDS: PANTOPRAZOLE SOD 40 MG TABEC PO SCH (07:30)
[2022-02-06] MEDS: INSULIN LISPRO 100 UNIT/1 ML 3ML VIAL SQ SCH ×4 (07:30→21:42)
[2022-02-06] MEDS: ALBUTEROL/IPRATROPIUM 3 ML NEB NEB PRN (07:55)
[2022-02-06] MEDS: BUDESONIDE 0.5MG/2 ML NEB INH SCH ×2 (07:55→19:24)
[2022-02-06] MEDS: SPIRONOLACTONE 25 MG TAB PO SCH ×2 (09:00→21:00)
[2022-02-06] MEDS: CLONIDINE HCL 0.1 MG TAB PO SCH ×3 (09:00→21:00)
[2022-02-06] MEDS: METOLAZONE 5 MG TAB PO SCH (09:00)
[2022-02-06] MEDS: CARVEDILOL 12.5 MG TAB PO SCH ×2 (09:00→17:00)
[2022-02-06] MEDS ORDERED: ONDANSETRON HCL 4 MG ORAL DISINTEGRATING TAB PO PRN (14:30)
[2022-02-06] MEDS ORDERED: ALBUMIN 25% 25GM 100ML 0.25 GM/ML BTL IV ONE (16:00)
[2022-02-06] MEDS ORDERED: ALBUMIN 25% 25GM 100ML 100 ML IV ONE (16:30)
[2022-02-06] MEDS: SIMVASTATIN 20 MG TAB PO SCH (21:43)
[2022-02-06] MEDS: ACETAMINOPHEN 325 MG TAB PO PRN (23:00)
[2022-02-06] MEDS: LEVOTHYROXINE SODIUM 25 MCG TABLET PO SCH (23:04)
[2022-02-07] MEDS: FUROSEMIDE INJ 100 MG in SODIUM CHLORIDE 0.9% 90 ML IV SCH ×2 (03:00→12:00)
[2022-02-07 04:44] VITALS: BP 121/63
[2022-02-07 06:34] LABS: ANION GAP 14.8 mmol/L (8-16); CALCIUM 8.1 mg/dL (8.4-10.2); CREATININE, SERUM 3.54 mg/dL (0.57-1.11); POTASSIUM 3.8 mmol/L (3.5-5.1)
[2022-02-07] MEDS: BUDESONIDE 0.5MG/2 ML NEB INH SCH ×2 (07:05→19:35)
[2022-02-07] MEDS: INSULIN LISPRO 100 UNIT/1 ML 3ML VIAL SQ SCH ×4 (07:30→21:00)
[2022-02-07 07:38] LABS: BASOPHILS % 0.8 % (0.0-1.0); EOSINOPHILS # (AUTO) 0.2 (0.0-0.4); EOSINOPHILS % 4.2 % (0.0-6.0); HEMATOCRIT 28.6 % (34.2-44.1); HEMOGLOBIN 8.9 g/dL (12.0-16.0); LYMPHOCYTES % 28.1 % (18.0-39.1); MEAN CORPUSCULAR HEMOGLOBIN 30.6 pg (28-32); MEAN CORPUSCULAR HGB CONC 31.1 g/dL (31-35); MEAN CORPUSCULAR VOLUME 98.3 fL (81-99); MONOCYTES # (AUTO) 0.3 (0.2-0.8); MONOCYTES % 7.5 % (4.4-11.3); NEUTROPHILS # (AUTO) 2.1 (2.1-6.9); NEUTROPHILS % 59.1 % (38.7-80.0); PLATELET COUNT 147 x10e3/uL (140-360); RED BLOOD COUNT 2.91 x10e6/uL (3.6-5.1); RED CELL DISTRIBUTION WIDTH 15.9 % (11.7-14.4)
[2022-02-07 08:00] VITALS: BP 121/63
[2022-02-07 08:21] VITALS: BP 122/54
[2022-02-07 11:06] VITALS: BP 147/76
[2022-02-07] MEDS ORDERED: ALBUMIN 25% 25GM 100ML 0.25 GM/ML BTL IV SCH (12:45)
[2022-02-07] MEDS: METOLAZONE 5 MG TAB PO SCH (13:00)
[2022-02-07] MEDS: SPIRONOLACTONE 25 MG TAB PO SCH ×2 (13:00→21:00)
[2022-02-07] MEDS: CARVEDILOL 12.5 MG TAB PO SCH ×2 (13:00→17:00)
[2022-02-07] MEDS: PANTOPRAZOLE SOD 40 MG TABEC PO SCH (13:00)
[2022-02-07] MEDS: CLONIDINE HCL 0.1 MG TAB PO SCH ×3 (13:00→21:00)
[2022-02-07] MEDS: ALBUMIN 25% 12.5GM 50ML 100 ML IV SCH ×2 (13:15→22:00)
[2022-02-07] MEDS: ENOXAPARIN 30 MG/0.3 ML SYR SC SCH (17:00)
[2022-02-07 17:01] VITALS: BP 139/70
[2022-02-07 20:00] VITALS: BP 150/68
[2022-02-07] MEDS: SIMVASTATIN 20 MG TAB PO SCH (21:00)
[2022-02-07] MEDS: LEVOTHYROXINE SODIUM 25 MCG TABLET PO SCH (21:00)
[2022-02-07] MEDS: ACETAMINOPHEN 325 MG TAB PO PRN (21:23)
[2022-02-08] VITALS (8 sets, daily range): BP systolic 130–160; BP diastolic 57–85
[2022-02-08] MEDS: FUROSEMIDE INJ 100 MG in SODIUM CHLORIDE 0.9% 90 ML IV SCH ×4 (05:50→22:09)
[2022-02-08] MEDS: ALBUMIN 25% 12.5GM 50ML 100 ML IV SCH ×3 (05:51→22:07)
[2022-02-08 06:25] LABS: BASOPHILS % 0.9 % (0.0-1.0); EOSINOPHILS # (AUTO) 0.1 (0.0-0.4); EOSINOPHILS % 4.2 % (0.0-6.0); HEMATOCRIT 27.7 % (34.2-44.1); HEMOGLOBIN 8.5 g/dL (12.0-16.0); MEAN CORPUSCULAR HEMOGLOBIN 29.9 pg (28-32); MEAN CORPUSCULAR HGB CONC 30.7 g/dL (31-35); MEAN CORPUSCULAR VOLUME 97.5 fL (81-99); MONOCYTES # (AUTO) 0.3 (0.2-0.8); MONOCYTES % 7.7 % (4.4-11.3); NEUTROPHILS # (AUTO) 1.9 (2.1-6.9); NEUTROPHILS % 56.9 % (38.7-80.0); PLATELET COUNT 154 x10e3/uL (140-360); RED BLOOD COUNT 2.84 x10e6/uL (3.6-5.1); RED CELL DISTRIBUTION WIDTH 15.6 % (11.7-14.4)
[2022-02-08 06:45] LABS: ANION GAP 15.6 mmol/L (8-16); CALCIUM 8.2 mg/dL (8.4-10.2); CREATININE, SERUM 3.62 mg/dL (0.57-1.11); PHOSPHORUS 4.2 MG/DL (2.3-4.7); POTASSIUM 3.6 mmol/L (3.5-5.1)
[2022-02-08] MEDS: BUDESONIDE 0.5MG/2 ML NEB INH SCH ×2 (07:00→18:25)
[2022-02-08] MEDS: INSULIN LISPRO 100 UNIT/1 ML 3ML VIAL SQ SCH ×4 (08:30→22:07)
[2022-02-08] MEDS: PANTOPRAZOLE SOD 40 MG TABEC PO SCH (08:30)
[2022-02-08] MEDS: CLONIDINE HCL 0.1 MG TAB PO SCH ×3 (10:00→21:44)
[2022-02-08] MEDS: CARVEDILOL 12.5 MG TAB PO SCH ×2 (10:00→18:00)
[2022-02-08] MEDS: METOLAZONE 5 MG TAB PO SCH (10:00)
[2022-02-08] MEDS: SPIRONOLACTONE 25 MG TAB PO SCH ×2 (10:00→21:44)
[2022-02-08] MEDS: ENOXAPARIN 30 MG/0.3 ML SYR SC SCH (17:30)
[2022-02-08 19:53] LABS: CREATININE,URINE RANDOM 42.62 mg/dL (47-110)
[2022-02-08 20:36] LABS: TOTAL PROTEIN 24HR, URINE 6778.8 mg/24hr (50-100); TOTAL PROTEIN, URINE 322.8 mg/dL (1-14)
[2022-02-08] MEDS: SIMVASTATIN 20 MG TAB PO SCH (21:44)
[2022-02-08] MEDS: LEVOTHYROXINE SODIUM 25 MCG TABLET PO SCH (21:44)
[2022-02-08] MEDS: ACETAMINOPHEN 325 MG TAB PO PRN (22:07)
[2022-02-08] MEDS ORDERED: SODIUM CHLORIDE 0.9% 250ML 250 ML ONE (22:41)
[2022-02-09] VITALS (8 sets, daily range): BP systolic 143–169; BP diastolic 66–75
[2022-02-09] MEDS: ALBUMIN 25% 12.5GM 50ML 100 ML IV SCH (05:15)
[2022-02-09] MEDS: ALBUTEROL/IPRATROPIUM 3 ML NEB NEB PRN (05:27)
[2022-02-09 06:05] LABS: BASOPHILS % 0.8 % (0.0-1.0); EOSINOPHILS # (AUTO) 0.2 (0.0-0.4); EOSINOPHILS % 4.1 % (0.0-6.0); HEMATOCRIT 27.5 % (34.2-44.1); HEMOGLOBIN 8.4 g/dL (12.0-16.0); LYMPHOCYTES # (AUTO) 0.9 (1.0-3.2); LYMPHOCYTES % 25.3 % (18.0-39.1); MEAN CORPUSCULAR HGB CONC 30.5 g/dL (31-35); MEAN CORPUSCULAR VOLUME 98.2 fL (81-99); MONOCYTES # (AUTO) 0.3 (0.2-0.8); MONOCYTES % 7.1 % (4.4-11.3); NEUTROPHILS # (AUTO) 2.3 (2.1-6.9); NEUTROPHILS % 62.4 % (38.7-80.0); PLATELET COUNT 140 x10e3/uL (140-360); RED CELL DISTRIBUTION WIDTH 15.4 % (11.7-14.4)
[2022-02-09 06:30] LABS: ANION GAP 16.6 mmol/L (8-16); CALCIUM 8.9 mg/dL (8.4-10.2); CREATININE, SERUM 3.42 mg/dL (0.57-1.11); POTASSIUM 3.6 mmol/L (3.5-5.1)
[2022-02-09] MEDS: BUDESONIDE 0.5MG/2 ML NEB INH SCH ×2 (07:15→19:00)
[2022-02-09] MEDS: PANTOPRAZOLE SOD 40 MG TABEC PO SCH (07:30)
[2022-02-09] MEDS: INSULIN LISPRO 100 UNIT/1 ML 3ML VIAL SQ SCH ×4 (08:00→21:15)
[2022-02-09] MEDS: METOLAZONE 5 MG TAB PO SCH (09:00)
[2022-02-09] MEDS: CARVEDILOL 12.5 MG TAB PO SCH ×2 (09:00→17:19)
[2022-02-09] MEDS: CLONIDINE HCL 0.1 MG TAB PO SCH ×3 (09:00→21:15)
[2022-02-09] MEDS: SPIRONOLACTONE 25 MG TAB PO SCH ×2 (09:00→21:15)
[2022-02-09] MEDS: FUROSEMIDE INJ 100 MG in SODIUM CHLORIDE 0.9% 90 ML IV SCH (13:41)
[2022-02-09] MEDS: FUROSEMIDE INJ 10 MG/ML 4 ML VIAL IV SCH ×2 (14:00→21:15)
[2022-02-09] MEDS: ENOXAPARIN 30 MG/0.3 ML SYR SC SCH (17:19)
[2022-02-09] MEDS: LEVOTHYROXINE SODIUM 25 MCG TABLET PO SCH (21:15)
[2022-02-09] MEDS: SIMVASTATIN 20 MG TAB PO SCH (21:15)
[2022-02-10] VITALS: BP 136/73
[2022-02-10 04:00] VITALS: BP 137/62
[2022-02-10 06:41] LABS: ANION GAP 15.6 mmol/L (8-16); CALCIUM 9.3 mg/dL (8.4-10.2); CREATININE, SERUM 3.33 mg/dL (0.57-1.11); POTASSIUM 3.6 mmol/L (3.5-5.1)
[2022-02-10] MEDS: FUROSEMIDE INJ 10 MG/ML 4 ML VIAL IV SCH ×2 (06:45→14:16)
[2022-02-10] MEDS: BUDESONIDE 0.5MG/2 ML NEB INH SCH (07:00)
[2022-02-10 08:00] VITALS: BP 137/62
[2022-02-10 08:45] VITALS: BP 166/76
[2022-02-10] MEDS: PANTOPRAZOLE SOD 40 MG TABEC PO SCH (09:25)
[2022-02-10] MEDS: INSULIN LISPRO 100 UNIT/1 ML 3ML VIAL SQ SCH ×2 (09:25→11:30)
[2022-02-10] MEDS: SPIRONOLACTONE 25 MG TAB PO SCH (11:05)
[2022-02-10] MEDS: CLONIDINE HCL 0.1 MG TAB PO SCH ×2 (11:06→15:00)
[2022-02-10] MEDS: METOLAZONE 5 MG TAB PO SCH (11:07)
[2022-02-10] MEDS: CARVEDILOL 12.5 MG TAB PO SCH (11:07)
[2022-02-10 11:49] VITALS: BP 155/66
[2022-02-10] MEDS ORDERED: LASIX40 MG PO (14:41)
[2022-02-10] MEDS ORDERED: HYDRALAZINE HCL50 MG PO (14:42)
[2022-02-10] MEDS ORDERED: ASPIRIN81 MG PO (14:43)
== END 2022-02-10 15:30 | disposition home or self-care (01) | DRG 291 ==
LOC: MED/SURG2 18:29
PROVIDERS: ADMIT Internal Medicine; ATTEND Internal Medicine
PROC: 0W9B3ZZ Drainage of Left Pleural Cavity, Percutaneous Approach (ICD-10-PCS; principal; 2022-02-03)
DX: I13.0 Hypertensive heart and chronic kidney disease with heart failure and stage 1 through stage 4 chronic kidney disease, or unspecified chronic kidney disease (principal); I50.31 Acute diastolic (congestive) heart failure; J90 Pleural effusion, not elsewhere classified; Z68.42 Body mass index [BMI] 45.0-49.9, adult; N17.9 Acute kidney failure, unspecified; N18.4 Chronic kidney disease, stage 4 (severe); Z86.16 Personal history of COVID-19; G47.33 Obstructive sleep apnea (adult) (pediatric); E66.01 Morbid (severe) obesity due to excess calories; E86.1 Hypovolemia; E03.9 Hypothyroidism, unspecified; E78.00 Pure hypercholesterolemia, unspecified; E11.22 Type 2 diabetes mellitus with diabetic chronic kidney disease; G89.29 Other chronic pain; M54.50 Low back pain, unspecified; E87.6 Hypokalemia; Z20.822 Contact with and (suspected) exposure to COVID-19; M79.7 Fibromyalgia; K74.60 Unspecified cirrhosis of liver; M19.90 Unspecified osteoarthritis, unspecified site
CPT/HCPCS: 32555; 36415; 71045; 71250; 74470; 76604; 76770; 80048; 80053; 80061; 81001; 81050; 82570; 82575; 82948; 83036; 83540; 83735; 83880; 84100; 84132; 84156; 84443; 84466; 84484; 85025; 85610; 86704; 86706; 87340; 93005; 93306; 93970; 94799; 96361; 96372; 97139; J0360; J1650; J1940; J3480; J7050; P9047; U0002

== ENCOUNTER 2025-04-27 11:00 | Outpatient (RCR) | payer MEDICARE, OTHER ==
[~2025-04-27 11:00] MED LIST: AMLODIPINE BESY10 MG PO; ASPIRIN81 MG PO; AURYXIA210 MG PO; BUMETANIDE2 MG PO; CARVEDILOL25 MG PO; CARVEDILOL6.25 MG PO; DULOXETINE HCL30 MG PO; DULOXETINE HCL60 MG PO; HYDRALAZINE HCL50 MG PO; LACTULOSE10 GM/151 PO; LASIX40 MG PO; LEVOTHYROXINE25 MCG PO; MIDODRINE HCL10 MG PO; PANTOPRAZOLE SO40 MG PO; ROPINIROLE HCL0.5 MG PO; SENSIPAR30 MG PO; SEVELAMER CARB800 MG PO; SIMVASTATIN20 MG PO; VALSARTAN320 MG PO; VITAMIN PO; XIGDUO XR 5 MG1 EAC1 PO
== END 2025-04-28 ==
LOC: WCC 11:00
PROVIDERS: ATTEND Nurse Practitioner Family
DX: E83.59 Other disorders of calcium metabolism (principal)

== ENCOUNTER 2025-05-25 11:30 | Outpatient (RCR) | payer MEDICARE, OTHER | END 2025-05-29 | LOC: WCC 11:30 | PROVIDERS: ATTEND Nurse Practitioner Family | DX: E83.59 Other disorders of calcium metabolism (principal); N18.6 End stage renal disease ==

== ENCOUNTER 2025-06-16 19:36 | Emergency (ER) | payer OTHER, MEDICARE ==
[~2025-06-16] VITALS: Ht 157.5 cm; Wt 114.1 kg
[2025-06-16 20:00] VITALS: PULSE 81; RESP 18; TEMP 98.5
[2025-06-16] MEDS ORDERED: PREDNISONE5 MG PO (22:06)
[2025-06-17 04:13] VITALS: BP 127/75; PULSE 73; RESP 18; O2SAT 99
== END 2025-06-16 22:40 | disposition home or self-care (01) ==
LOC: ER 20:37
DX: L89.229 Pressure ulcer of left hip, unspecified stage (principal); L89.219 Pressure ulcer of right hip, unspecified stage; I12.0 Hypertensive chronic kidney disease with stage 5 chronic kidney disease or end stage renal disease; E11.22 Type 2 diabetes mellitus with diabetic chronic kidney disease; N18.6 End stage renal disease; I50.9 Heart failure, unspecified; E78.5 Hyperlipidemia, unspecified
CPT/HCPCS: 99281; 99284

== ENCOUNTER 2025-06-20 11:31 | Outpatient (RCR) | payer OTHER, MEDICARE ==
[~2025-06-20 11:31] MED LIST changes: +PREDNISONE5 MG PO
== END 2025-06-28 ==
LOC: WCC 11:31
PROVIDERS: ATTEND Internal Medicine Infectious Disease
DX: E83.59 Other disorders of calcium metabolism (principal)